=== PATIENT | female | born 1970 | race African-American/Black ===

== ENCOUNTER 2018-09-19 02:57 | Inpatient (IN) | payer SELFPAY ==
[~2018-09-19] VITALS: Ht 165.1 cm; Wt 93.9 kg
[2018-09-19] VITALS (10 sets, daily range): BP systolic 89–118; BP diastolic 48–76
[2018-09-19] MEDS ORDERED: METOCLOPRAMIDE HCL 10 MG/2 ML VIAL. IV ONE (03:30)
[2018-09-19] MEDS ORDERED: IV NORMAL SALINE 1000ML BAG 1,000 ML IV ONE (03:30)
[2018-09-19] MEDS ORDERED: KETOROLAC 15 MG/ML VIAL. IV ONE (03:30)
[2018-09-19 03:40] LABS: BASO # 0.1 x10^3/uL (0.0-0.2); BASO % 1 % (0-3); EOS # 0.1 x10^3/uL (0.0-0.7); EOS % 1 % (0-3); HEMATOCRIT 36.4 % (36.0-47.0); HEMOGLOBIN 11.9 g/dL (12.0-15.5); LYMPH # 0.9 x10^3/uL (1.0-4.8); LYMPH % 9 % (24-48); MEAN CORPUSCULAR HEMOGLOBIN 27 pg (25-35); MEAN CORPUSCULAR HGB CONC 33 g/dL (31-37); MEAN CORPUSCULAR VOLUME 82 fL (79-100); MONO # 0.6 x10^3/uL (0.0-1.1); MONO % 5 % (0-9); NEUT % 85 % (31-73); PLATELET COUNT 295 x10^3/uL (140-400); RED BLOOD COUNT 4.45 x10^6/uL (3.50-5.40); RED CELL DISTRIBUTION WIDTH 16.4 % (11.5-14.5); WHITE BLOOD COUNT 10.6 x10^3/uL (4.0-11.0)
[2018-09-19] MEDS ORDERED: fentaNYL PF VIAL 100 MCG/2 ML VIAL IV ONE ×3 (04:00→05:00)
--- NOTE | 2018-09-19 04:24 | PHYS DOC ---
Past Medical History Past Medical History: Asthma, Hypertension Past Surgical History: Hysterectomy Additional Past Surgical Histo: NECK/BACK FUSION Alcohol Use: None Drug Use: None Adult General Chief Complaint Chief Complaint: ABDOMINAL PAIN HPI HPI 48-year-old female presents with sudden right lower quadrant abdominal pain which awoke patient just prior to arrival. Denies known trauma. Reports some associated nausea. Denies vomiting or diarrhea. Denies fever or chills. Denies known sick contacts. Reports last ate food at 1800 yesterday. Reports drinking some water at 0300 this AM. Review of Systems Review of Systems Constitutional: Denies fever or chills [] Eyes: Denies change in visual acuity, redness, or eye pain [] HENT: Denies nasal congestion or sore throat [] Respiratory: Denies cough or shortness of breath [] Cardiovascular: Denies chest pain or palpitations GI: Denies abdominal pain, vomiting, or diarrhea; reports vomiting : Denies dysuria or hematuria [] Musculoskeletal: Denies back pain or joint pain [] Integument: Denies rash or skin lesions [] Neurologic: Denies headache, focal weakness or sensory changes [] Complete systems were reviewed and found to be within normal limits, except as documented in this note. Current Medications Current Medications Current Medications Medications (Trade) Dose Ordered Sig/Bree Start Time Stop Time Status Last Admin Dose Admin Fentanyl Citrate (Fentanyl 2ml Vial) 50 mcg 1X ONCE 09/19/18 05:00 09/19/18 05:01 Ketorolac Tromethamine (Toradol 15mg Vial) 15 mg 1X ONCE 09/19/18 03:30 09/19/18 03:31 DC 09/19/18 03:38 15 MG Metoclopramide HCl (Reglan Vial) 10 mg 1X ONCE 09/19/18 03:30 09/19/18 03:31 DC 09/19/18 03:36 10 MG Piperacillin Sod/ Tazobactam Sod 3.375 gm/Dextrose 50 ml @ 100 mls/hr 1X ONCE 09/19/18 05:00 09/19/18 05:29 Sodium Chloride 1,000 ml @ 1,000 mls/hr 1X ONCE 09/19/18 03:30 09/19/18 04:29 DC 09/19/18 03:38 1,000 MLS/HR Allergies Allergies Allergies Coded Allergies Type Severity Reaction Last Updated Verified No Known Drug Allergies 09/19/18 No Physical Exam Physical Exam Constitutional: Well developed, well nourished, uncomfortable, non-toxic appearance. [] HENT: Normocephalic, atraumatic, oropharynx moist Eyes: Conjunctiva normal, no discharge. [] Neck: Normal range of motion, no tenderness, supple, no meningeal signs[] Cardiovascular: Heart rate regular rhythm, no murmur [] Lungs & Thorax: Bilateral breath sounds clear to auscultation [] Abdomen: Soft, RLQ pain on palpation Skin: Warm, dry, no erythema, no rash. [] Back: No tenderness, no CVA tenderness. [] Extremities: No tenderness, ROM intact, no edema. [] Neurologic: Alert and oriented X 3, normal motor function, normal sensory function, no focal deficits noted. [] Psychologic: Affect normal, judgement normal, mood normal. [] Current Patient Data Vital Signs Vital Signs Date Time Temp Pulse Resp B/P (MAP) Pulse Ox O2 Delivery O2 Flow Rate FiO2 09/19/18 02:58 98.8 108 24 124/83 (97) 96 Room Air 98.8 Lab Values Laboratory Tests Test 09/19/18 03:33 White Blood Count 10.6 x10^3/uL (4.0-11.0) Red Blood Count 4.45 x10^6/uL (3.50-5.40) Hemoglobin 11.9 g/dL (12.0-15.5) L Hematocrit 36.4 % (36.0-47.0) Mean Corpuscular Volume 82 fL (79-100) Mean Corpuscular Hemoglobin 27 pg (25-35) Mean Corpuscular Hemoglobin Concent 33 g/dL (31-37) Red Cell Distribution Width 16.4 % (11.5-14.5) H Platelet Count 295 x10^3/uL (140-400) Neutrophils (%) (Auto) 85 % (31-73) H Lymphocytes (%) (Auto) 9 % (24-48) L Monocytes (%) (Auto) 5 % (0-9) Eosinophils (%) (Auto) 1 % (0-3) Basophils (%) (Auto) 1 % (0-3) Neutrophils # (Auto) 9.0 x10^3uL (1.8-7.7) H Lymphocytes # (Auto) 0.9 x10^3/uL (1.0-4.8) L Monocytes # (Auto) 0.6 x10^3/uL (0.0-1.1) Eosinophils # (Auto) 0.1 x10^3/uL (0.0-0.7) Basophils # (Auto) 0.1 x10^3/uL (0.0-0.2) Laboratory Tests 09/19/18 03:33 EKG EKG [] Radiology/Procedures Radiology/Procedures PROCEDURE: CT ABDOMEN PELVIS WO CONTRAST CT scan of the abdomen and pelvis without contrast 09/19/2018 CLINICAL HISTORY: Right lower quadrant abdominal pain. TECHNIQUE: Unenhanced, contiguous, 2 mm axial sections were obtained through abdomen and pelvis. One or more of the following individualized dose reduction techniques were utilized for this study: 1. Automated exposure control. 2. Adjustment of the mA and/or kV according to patient size. 3. Use of iterative reconstruction technique. FINDINGS: Images through the lung bases demonstrate minimal dependent subsegmental atelectasis bilaterally. The liver, spleen, pancreas, and adrenal glands are within normal limits. No renal or ureteral calculus is seen. There is no evidence of obstruction of either collecting system. The abdominal aorta tapers normally. The gallbladder is well-distended. No free fluid or free air is seen within the abdomen. There is no evidence of bowel obstruction. The appendix is well-visualized. Calcified appendicoliths are seen throughout the lumen of the appendix. The mid/distal appendix is mildly dilated measuring 1 cm in diameter. It has a slightly thickened wall. Faint increased density is seen within the adjacent fat. These findings are consistent with acute appendicitis. No abnormal fluid collection is seen suggest evidence of an abscess. Images through the pelvis demonstrate the urinary bladder distended with urine. Calcifications are seen within the pelvis consistent with phleboliths. No free fluid is seen. Fusion hardware is seen within the L4-5 and L5-S1 disc spaces. Minimal S-shaped curvature of the thoracolumbar spine is seen. IMPRESSION: Findings are seen consistent with acute appendicitis. Electronically signed by: Giuliano Ceja MD (09/19/2018 4:34 AM) [facility] Course & Med Decision Making Course & Med Decision Making Pertinent Labs and Imaging studies reviewed. (See chart for details) Patient presents with right lower quadrant abdominal pain with associated nausea upon waking early this morning. Pain/nausea addressed. IV fluid hydration given. Labs obtained and posted to chart. CT abdomen/pelvis with findings consistent for acute appendicitis. Discussed case with Dr. Ken ( general surgery), who is in agreement with consultation and requests empiric Zosyn for antibiotics. Zosyn administered. Patient requiring admission for further evaluation and treatment. Discussed with Dr. Velazquez (hospitalist) who is in agreement with admission. Discussed findings and plan with patient and family , who acknowledge understanding and agreement. Dragon Disclaimer Dragon Disclaimer This electronic medical record was generated, in whole or in part, using a voice recognition dictation system. Departure Departure Impression: Primary Impression: Acute appendicitis Disposition: ADMITTED INPATIENT (Med/Surg) Admitting Physician: Xie. Greenberg Condition: GUARDED Referrals: NO PCP (PCP) Critical Care Time Critical care time was 30 minutes which includes time at bedside, spent in discussion of patient's care with specialists and/or family members, with interpretation of laboratory and/or radiological studies and is exclusive of procedures. Problem Qualifiers Primary Impression: Acute appendicitis Acute appendicitis type: with localized peritonitis Appendicitis gangrene presence: unspecified whether gangrene present Appendicitis perforation presence: without perforation Appendicitis abscess presence: without abscess Qualified Codes: K35.30 - Acute appendicitis with localized peritonitis, without perforation or gangrene JENNIFER BAE DO Sep 19, 2018 04:24
--- NOTE | 2018-09-19 04:38 | RAD ---
CT scan of the abdomen and pelvis without contrast 09/19/2018 CLINICAL HISTORY: Right lower quadrant abdominal pain. TECHNIQUE: Unenhanced, contiguous, 2 mm axial sections were obtained through abdomen and pelvis. One or more of the following individualized dose reduction techniques were utilized for this study: 1. Automated exposure control. 2. Adjustment of the mA and/or kV according to patient size. 3. Use of iterative reconstruction technique. FINDINGS: Images through the lung bases demonstrate minimal dependent subsegmental atelectasis bilaterally. The liver, spleen, pancreas, and adrenal glands are within normal limits. No renal or ureteral calculus is seen. There is no evidence of obstruction of either collecting system. The abdominal aorta tapers normally. The gallbladder is well-distended. No free fluid or free air is seen within the abdomen. There is no evidence of bowel obstruction. The appendix is well-visualized. Calcified appendicoliths are seen throughout the lumen of the appendix. The mid/distal appendix is mildly dilated measuring 1 cm in diameter. It has a slightly thickened wall. Faint increased density is seen within the adjacent fat. These findings are consistent with acute appendicitis. No abnormal fluid collection is seen suggest evidence of an abscess. Images through the pelvis demonstrate the urinary bladder distended with urine. Calcifications are seen within the pelvis consistent with phleboliths. No free fluid is seen. Fusion hardware is seen within the L4-5 and L5-S1 disc spaces. Minimal S-shaped curvature of the thoracolumbar spine is seen. IMPRESSION: Findings are seen consistent with acute appendicitis. Electronically signed by: Giuliano Cjea MD (09/19/2018 4:34 AM) [facility]
[2018-09-19 04:51] LABS: CALCIUM 8.9 mg/dL (8.5-10.1); CREATININE 1.1 mg/dL (0.6-1.0); GFR 63.6; POTASSIUM 3.3 mmol/L (3.5-5.1)
[2018-09-19 04:57] LABS: ALBUMIN 3.4 g/dL (3.4-5.0); ALBUMIN/GLOBULIN RATIO 0.9 (1.0-1.7); MAGNESIUM 1.9 mg/dL (1.8-2.4); TOTAL BILIRUBIN 0.3 mg/dL (0.2-1.0); TOTAL PROTEIN 7.1 g/dL (6.4-8.2)
[2018-09-19] MEDS ORDERED: PIPERACILLIN/TAZOBACTAM 3.375 GM in IV DEXTROSE 5% 50 ML IV ONE (05:00)
[2018-09-19] MEDS ORDERED: ONDANSETRON PF 4 MG/2 ML VIAL. IV PRN ×4 (05:00→14:15)
[2018-09-19] MEDS: IV NORMAL SALINE 1000ML BAG 1,000 ML IV SCH ×3 (06:15→16:28)
[2018-09-19] MEDS: fentaNYL PF VIAL 100 MCG/2 ML VIAL IV PRN ×2 (07:17→11:35)
[2018-09-19] MEDS ORDERED: PIP/TAZO PER PHARMACY MC PRN (08:45)
[2018-09-19] MEDS ORDERED: ACETAMINOPHEN 500 MG TABLET PO PRN (08:45)
[2018-09-19] MEDS ORDERED: MORPHINE SULFATE 4 MG/ML VIAL. IV PRN (09:00)
[2018-09-19] MEDS ORDERED: IV RINGERS,LACTATED 1000ML 1,000 ML IV SCH (10:50)
[2018-09-19] MEDS ORDERED: LIDOCAINE 1% PF 2 ML VIAL. ID PRN (11:00)
[2018-09-19] MEDS ORDERED: PROCHLORPERAZINE 10 MG/2 ML VIAL. IV PRN (11:00)
[2018-09-19] MEDS ORDERED: fentaNYL PF VIAL 100 MCG/2 ML VIAL IV PRN ×2 (11:00)
[2018-09-19] MEDS ORDERED: HYDROmorphone 2 MG/ML VIAL IV PRN (11:00)
[2018-09-19] MEDS ORDERED: MORPHINE SULFATE 2 MG/ML VIAL. IV PRN (11:00)
[2018-09-19] MEDS: PIPERACILLIN/TAZOBACTAM 3.375 GM in IV DEXTROSE 5% 50 ML IV SCH ×3 (11:34→23:55)
[2018-09-19] MEDS ORDERED: PIPERACILLIN/TAZOBACTAM 3.375 GM in IV NORMAL SALINE 50ML 50 ML IV SCH (12:00)
--- NOTE | 2018-09-19 12:17 | PDOC1 ---
History and Physical Date of Admission Date of Admission DATE: 09/19/18 TIME: 12:13 Identification/Chief Complaint Chief Complaint right abd pain Source Source: Caregiver, Chart review, Patient History of Present Illness History of Present Illness Pt is out having a laparoscopic appendectomy for perforated appendicitis Most of the history obtained from the ER chart: 48-year-old female presents with sudden right lower quadrant abdominal pain which awoke patient just prior to arrival. Denies known trauma. Reports some associated nausea. Denies vomiting or diarrhea. Denies fever or chills. Denies known sick contacts. NO past medical hx Past Medical History Cardiovascular: No pertinent hx Pulmonary: No pertinent hx GI: No pertinent hx Heme/Onc: No pertinent hx Psych: No pertinent hx Rheumatologic: No pertinent hx Infectious disease: No pertinent hx ENT: No pertinent hx Renal/: No pertinent hx Endocrine: No pertinent hx Dermatology: No pertinent hx Past Surgical History Past Surgical History: No pertinent history Family History Family History: No Significant Social History Smoke: No ALCOHOL: none Drugs: None Current Problem List Problem List Problems Medical Problems: (1) Abdominal pain Status: Acute (2) Acute appendicitis Status: Acute Current Medications Current Medications Current Medications Ketorolac Tromethamine (Toradol 15mg Vial) 15 mg 1X ONCE IV Last administered on 09/19/18at 03:38; Start 09/19/18 at 03:30; Stop 09/19/18 at 03:31; Status DC Sodium Chloride 1,000 ml @ 1,000 mls/hr 1X ONCE IV Last administered on 09/19at 03:38; Start 09/19/18 at 03:30; Stop 09/19/18 at 04:29; Status DC Metoclopramide HCl (Reglan Vial) 10 mg 1X ONCE IV Last administered on at 03:36; Start 09/19/18 at 03:30; Stop 09/19/18 at 03:31; Status DC Fentanyl Citrate (Fentanyl 2ml Vial) 50 mcg 1X ONCE IV Last administered on at 03:49; Start 09/19/18 at 04:00; Stop 09/19/18 at 04:01; Status DC Fentanyl Citrate (Fentanyl 2ml Vial) 50 mcg 1X ONCE IV Last administered on at 04:52; Start 09/19/18 at 05:00; Stop 09/19/18 at 05:01; Status DC Fentanyl Citrate (Fentanyl 2ml Vial) 50 mcg 1X ONCE IV ; Start 09/19/18 at 05: 00; Stop 09/19/18 at 05:01; Status DC Piperacillin Sod/ Tazobactam Sod 3.375 gm/Dextrose 50 ml @ 100 mls/hr 1X ONCE IV Last administered on 09/19/18at 04:56; Start 09/19/18 at 05:00; Stop 09/19 at 05:29; Status DC Ondansetron HCl (Zofran) 4 mg PRN Q8HRS PRN IV NAUSEA/VOMITING 1st choice; Start 09/19/18 at 05:00; Stop 09/19/18 at 08:33; Status DC Fentanyl Citrate (Fentanyl 2ml Vial) 50 mcg PRN Q2HRS PRN IV SEVERE PAIN Last administered on 09/19/18at 11:35; Start 09/19/18 at 05:00; Stop 09/20/18 at 04 :59 Sodium Chloride 1,000 ml @ 100 mls/hr Q10H IV Last administered on 09/19/18at 06:15; Start 09/19/18 at 05:30; Stop 09/20/18 at 05:29 Ondansetron HCl (Zofran) 4 mg PRN Q6HRS PRN IV NAUSEA/VOMITING 1st choice; Start 09/19/18 at 08:45 Piperacillin Sod/ Tazobactam Sod (Zosyn Per Pharmacy) 1 each PRN DAILY PRN MC SEE COMMENTS; Start 09/19/18 at 08:45 Acetaminophen (Tylenol) 500 mg PRN Q6HRS PRN PO MILD PAIN / TEMP; Start at 08:45 Oxycodone/ Acetaminophen (Percocet 5/325) 1 tab PRN Q4HRS PRN PO MODERATE- SEVERE PAIN; Start 09/19/18 at 08:45 Piperacillin Sod/ Tazobactam Sod 3.375 gm/Sodium Chloride 50 ml @ 100 mls/hr Q6HRS IV ; Start 09/19/18 at 12:00; Stop 09/19/18 at 12:00; Status DC Morphine Sulfate (Morphine Sulfate) 4 mg PRN Q2HR PRN IV PAIN Last administered on 09/19/18at 09:19; Start 09/19/18 at 09:00 Piperacillin Sod/ Tazobactam Sod 3.375 gm/Dextrose 50 ml @ 100 mls/hr Q6HRS IV Last administered on 09/19/18at 11:34; Start 09/19/18 at 12:00 Ondansetron HCl (Zofran) 4 mg PRN Q6HRS PRN IV NAUSEA/VOMITING; Start at 11:00; Stop 09/20/18 at 10:59 Fentanyl Citrate (Fentanyl 2ml Vial) 25 mcg PRN Q5MIN PRN IV MILD PAIN; Start 09/19/18 at 11:00; Stop 09/20/18 at 10:59 Fentanyl Citrate (Fentanyl 2ml Vial) 50 mcg PRN Q5MIN PRN IV MODERATE TO SEVERE PAIN; Start 09/19/18 at 11:00; Stop 09/20/18 at 10:59 Morphine Sulfate (Morphine Sulfate) 1 mg PRN Q10MIN PRN IV SEVERE PAIN; Start 09/19/18 at 11:00; Stop 09/20/18 at 10:59 Ringer's Solution 1,000 ml @ 30 mls/hr Q24H IV ; Start 09/19/18 at 10:50; Stop 09/19/18 at 22:49 Lidocaine HCl (Xylocaine-Mpf 1% 2ml Vial) 2 ml 1X PRN PRN ID IV START; Start 09/19/18 at 11:00; Stop 09/20/18 at 10:59 Hydromorphone HCl (Dilaudid) 0.5 mg PRN Q10MIN PRN IV SEV PAIN, Second choice; Start 09/19/18 at 11:00; Stop 09/20/18 at 10:59 Prochlorperazine Edisylate (Compazine) 5 mg PACU PRN PRN IV NAUSEA, MRX1; Start 09/19/18 at 11:00; Stop 09/20/18 at 10:59 Lactobacillus Rhamnosus (Culturelle) 1 cap BID PO ; Start 09/19/18 at 21:00 Allergies Allergies: Coded Allergies: No Known Drug Allergies (Unverified , 09/19/18) ROS Review of System As per history of present illness Physical Exam Physical Exam Out having appendectomy Vitals Vitals Vital Signs Date Time Temp Pulse Resp B/P (MAP) Pulse Ox O2 Delivery O2 Flow Rate FiO2 09/19/18 11:35 92 Room Air 09/19/18 11:00 97.8 103 18 118/76 (90) 97.8 Labs Labs Laboratory Tests Test 09/19/18 03:33 09/19/18 04:30 White Blood Count 10.6 x10^3/uL (4.0-11.0) Red Blood Count 4.45 x10^6/uL (3.50-5.40) Hemoglobin 11.9 g/dL (12.0-15.5) Hematocrit 36.4 % (36.0-47.0) Mean Corpuscular Volume 82 fL (79-100) Mean Corpuscular Hemoglobin 27 pg (25-35) Mean Corpuscular Hemoglobin Concent 33 g/dL (31-37) Red Cell Distribution Width 16.4 % (11.5-14.5) Platelet Count 295 x10^3/uL (140-400) Neutrophils (%) (Auto) 85 % (31-73) Lymphocytes (%) (Auto) 9 % (24-48) Monocytes (%) (Auto) 5 % (0-9) Eosinophils (%) (Auto) 1 % (0-3) Basophils (%) (Auto) 1 % (0-3) Neutrophils # (Auto) 9.0 x10^3uL (1.8-7.7) Lymphocytes # (Auto) 0.9 x10^3/uL (1.0-4.8) Monocytes # (Auto) 0.6 x10^3/uL (0.0-1.1) Eosinophils # (Auto) 0.1 x10^3/uL (0.0-0.7) Basophils # (Auto) 0.1 x10^3/uL (0.0-0.2) Sodium Level 137 mmol/L (136-145) Potassium Level 3.3 mmol/L (3.5-5.1) Chloride Level 99 mmol/L (98-107) Carbon Dioxide Level 28 mmol/L (21-32) Anion Gap 10 (6-14) Blood Urea Nitrogen 11 mg/dL (7-20) Creatinine 1.1 mg/dL (0.6-1.0) Estimated GFR (Cockcroft-Gault) 63.6 BUN/Creatinine Ratio 10 (6-20) Glucose Level 177 mg/dL (70-99) Calcium Level 8.9 mg/dL (8.5-10.1) Magnesium Level 1.9 mg/dL (1.8-2.4) Total Bilirubin 0.3 mg/dL (0.2-1.0) Aspartate Amino Transf (AST/SGOT) 11 U/L (15-37) Alanine Aminotransferase (ALT/SGPT) 20 U/L (14-59) Alkaline Phosphatase 100 U/L (46-116) Total Protein 7.1 g/dL (6.4-8.2) Albumin 3.4 g/dL (3.4-5.0) Albumin/Globulin Ratio 0.9 (1.0-1.7) Lipase 70 U/L (73-393) Laboratory Tests Test 09/19/18 03:33 09/19/18 04:30 White Blood Count 10.6 x10^3/uL (4.0-11.0) Red Blood Count 4.45 x10^6/uL (3.50-5.40) Hemoglobin 11.9 g/dL (12.0-15.5) Hematocrit 36.4 % (36.0-47.0) Mean Corpuscular Volume 82 fL (79-100) Mean Corpuscular Hemoglobin 27 pg (25-35) Mean Corpuscular Hemoglobin Concent 33 g/dL (31-37) Red Cell Distribution Width 16.4 % (11.5-14.5) Platelet Count 295 x10^3/uL (140-400) Neutrophils (%) (Auto) 85 % (31-73) Lymphocytes (%) (Auto) 9 % (24-48) Monocytes (%) (Auto) 5 % (0-9) Eosinophils (%) (Auto) 1 % (0-3) Basophils (%) (Auto) 1 % (0-3) Neutrophils # (Auto) 9.0 x10^3uL (1.8-7.7) Lymphocytes # (Auto) 0.9 x10^3/uL (1.0-4.8) Monocytes # (Auto) 0.6 x10^3/uL (0.0-1.1) Eosinophils # (Auto) 0.1 x10^3/uL (0.0-0.7) Basophils # (Auto) 0.1 x10^3/uL (0.0-0.2) Sodium Level 137 mmol/L (136-145) Potassium Level 3.3 mmol/L (3.5-5.1) Chloride Level 99 mmol/L (98-107) Carbon Dioxide Level 28 mmol/L (21-32) Anion Gap 10 (6-14) Blood Urea Nitrogen 11 mg/dL (7-20) Creatinine 1.1 mg/dL (0.6-1.0) Estimated GFR (Cockcroft-Gault) 63.6 BUN/Creatinine Ratio 10 (6-20) Glucose Level 177 mg/dL (70-99) Calcium Level 8.9 mg/dL (8.5-10.1) Magnesium Level 1.9 mg/dL (1.8-2.4) Total Bilirubin 0.3 mg/dL (0.2-1.0) Aspartate Amino Transf (AST/SGOT) 11 U/L (15-37) Alanine Aminotransferase (ALT/SGPT) 20 U/L (14-59) Alkaline Phosphatase 100 U/L (46-116) Total Protein 7.1 g/dL (6.4-8.2) Albumin 3.4 g/dL (3.4-5.0) Albumin/Globulin Ratio 0.9 (1.0-1.7) Lipase 70 U/L (73-393) VTE Prophylaxis Ordered VTE Prophylaxis Devices: Yes VTE Pharmacological Prophylaxi: Yes Assessment/Plan Assessment/Plan Perforated appendicitis SIRS Plan: I have resume Zosyn per pharmacy Check postop labs Pain medicine We'll await from surgery VALE LOFTON MD Sep 19, 2018 12:17
[2018-09-19] MEDS ORDERED: BUPIVAC MPF-EPI 0.5%-1:200000 30 ML VIAL. ONE (12:23)
[2018-09-19] MEDS ORDERED: GLYCOPYRROLATE 1 MG/5 ML VIAL. ONE (12:47)
[2018-09-19] MEDS ORDERED: NEOSTIGMINE METHYLSULFATE 5 MG/5 ML SYRINGE. ONE (12:47)
[2018-09-19] MEDS ORDERED: fentaNYL PF VIAL 100 MCG/2 ML VIAL ONE (12:47)
[2018-09-19] MEDS ORDERED: ROCURONIUM 100 MG/10 ML VIAL. ONE (12:47)
[2018-09-19] MEDS ORDERED: ONDANSETRON PF 4 MG/2 ML VIAL. ONE (12:48)
[2018-09-19] MEDS ORDERED: DEXAMETHASONE SOD PHOS 20 MG/5 ML VIAL. ONE (12:48)
[2018-09-19] MEDS ORDERED: MIDAZOLAM HCL/PF 2 MG/2 ML VIAL. ONE (12:48)
[2018-09-19] MEDS ORDERED: KETOROLAC 30 MG/ML INJ FOR OR. INJ ONE (12:48)
[2018-09-19] MEDS ORDERED: PROPOFOL 20 ML IV ONE (12:48)
[2018-09-19] MEDS ORDERED: LIDOCAINE 2% PF Vial for OR 5 ML VIAL. ONE (12:48)
--- NOTE | 2018-09-19 12:48 | PDOC2 ---
CONSULT Date of Consult Date of Consult DATE: 09/19/18 TIME: 12:39 Reason for Consult Reason for Consult: Appendicitis Referring Physician Referring Physician: Delio Identification/Chief Complaint Chief Complaint RLQ abd pain Source Source: Chart review, Patient History of Present Illness Reason for Visit: 48 yo F with c/o abd pain, localizing RLQ, since 0000. Mild nausea at presentation. Normal bowel fxn. No previous episode. Past Medical History Cardiovascular: HTN Pulmonary: No pertinent hx GI: No pertinent hx Heme/Onc: No pertinent hx Psych: Depression Musculoskeletal: low back pain Rheumatologic: No pertinent hx Infectious disease: No pertinent hx ENT: No pertinent hx Renal/: No pertinent hx Endocrine: No pertinent hx Dermatology: No pertinent hx Past Surgical History Past Surgical History: Hysterectomy, Other (back surgery) Family History Family History: No Significant Social History No ALCOHOL: none Drugs: None Current Problem List Problem List Problems Medical Problems: (1) Abdominal pain Status: Acute (2) Acute appendicitis Status: Acute Current Medications Current Medications Current Medications Ketorolac Tromethamine (Toradol 15mg Vial) 15 mg 1X ONCE IV Last administered on 09/19/18at 03:38; Start 09/19/18 at 03:30; Stop 09/19/18 at 03:31; Status DC Sodium Chloride 1,000 ml @ 1,000 mls/hr 1X ONCE IV Last administered on 09/19at 03:38; Start 09/19/18 at 03:30; Stop 09/19/18 at 04:29; Status DC Metoclopramide HCl (Reglan Vial) 10 mg 1X ONCE IV Last administered on at 03:36; Start 09/19/18 at 03:30; Stop 09/19/18 at 03:31; Status DC Fentanyl Citrate (Fentanyl 2ml Vial) 50 mcg 1X ONCE IV Last administered on at 03:49; Start 09/19/18 at 04:00; Stop 09/19/18 at 04:01; Status DC Fentanyl Citrate (Fentanyl 2ml Vial) 50 mcg 1X ONCE IV Last administered on at 04:52; Start 09/19/18 at 05:00; Stop 09/19/18 at 05:01; Status DC Fentanyl Citrate (Fentanyl 2ml Vial) 50 mcg 1X ONCE IV ; Start 09/19/18 at 05: 00; Stop 09/19/18 at 05:01; Status DC Piperacillin Sod/ Tazobactam Sod 3.375 gm/Dextrose 50 ml @ 100 mls/hr 1X ONCE IV Last administered on 09/19/18at 04:56; Start 09/19/18 at 05:00; Stop 09/19 at 05:29; Status DC Ondansetron HCl (Zofran) 4 mg PRN Q8HRS PRN IV NAUSEA/VOMITING 1st choice; Start 09/19/18 at 05:00; Stop 09/19/18 at 08:33; Status DC Fentanyl Citrate (Fentanyl 2ml Vial) 50 mcg PRN Q2HRS PRN IV SEVERE PAIN Last administered on 09/19/18at 11:35; Start 09/19/18 at 05:00; Stop 09/20/18 at 04 :59 Sodium Chloride 1,000 ml @ 100 mls/hr Q10H IV Last administered on 09/19/18at 06:15; Start 09/19/18 at 05:30; Stop 09/20/18 at 05:29 Ondansetron HCl (Zofran) 4 mg PRN Q6HRS PRN IV NAUSEA/VOMITING 1st choice; Start 09/19/18 at 08:45 Piperacillin Sod/ Tazobactam Sod (Zosyn Per Pharmacy) 1 each PRN DAILY PRN MC SEE COMMENTS; Start 09/19/18 at 08:45 Acetaminophen (Tylenol) 500 mg PRN Q6HRS PRN PO MILD PAIN / TEMP; Start at 08:45 Oxycodone/ Acetaminophen (Percocet 5/325) 1 tab PRN Q4HRS PRN PO MODERATE- SEVERE PAIN; Start 09/19/18 at 08:45 Piperacillin Sod/ Tazobactam Sod 3.375 gm/Sodium Chloride 50 ml @ 100 mls/hr Q6HRS IV ; Start 09/19/18 at 12:00; Stop 09/19/18 at 12:00; Status DC Morphine Sulfate (Morphine Sulfate) 4 mg PRN Q2HR PRN IV PAIN Last administered on 09/19/18at 09:19; Start 09/19/18 at 09:00 Piperacillin Sod/ Tazobactam Sod 3.375 gm/Dextrose 50 ml @ 100 mls/hr Q6HRS IV Last administered on 09/19/18at 11:34; Start 09/19/18 at 12:00 Ondansetron HCl (Zofran) 4 mg PRN Q6HRS PRN IV NAUSEA/VOMITING; Start at 11:00; Stop 09/20/18 at 10:59 Fentanyl Citrate (Fentanyl 2ml Vial) 25 mcg PRN Q5MIN PRN IV MILD PAIN; Start 09/19/18 at 11:00; Stop 09/20/18 at 10:59 Fentanyl Citrate (Fentanyl 2ml Vial) 50 mcg PRN Q5MIN PRN IV MODERATE TO SEVERE PAIN; Start 09/19/18 at 11:00; Stop 09/20/18 at 10:59 Morphine Sulfate (Morphine Sulfate) 1 mg PRN Q10MIN PRN IV SEVERE PAIN; Start 09/19/18 at 11:00; Stop 09/20/18 at 10:59 Ringer's Solution 1,000 ml @ 30 mls/hr Q24H IV ; Start 09/19/18 at 10:50; Stop 09/19/18 at 22:49 Lidocaine HCl (Xylocaine-Mpf 1% 2ml Vial) 2 ml 1X PRN PRN ID IV START; Start 09/19/18 at 11:00; Stop 09/20/18 at 10:59 Hydromorphone HCl (Dilaudid) 0.5 mg PRN Q10MIN PRN IV SEV PAIN, Second choice; Start 09/19/18 at 11:00; Stop 09/20/18 at 10:59 Prochlorperazine Edisylate (Compazine) 5 mg PACU PRN PRN IV NAUSEA, MRX1; Start 09/19/18 at 11:00; Stop 09/20/18 at 10:59 Lactobacillus Rhamnosus (Culturelle) 1 cap BID PO ; Start 09/19/18 at 21:00 Bupivacaine HCl/ Epinephrine Bitart (Sensorcain-Mpf Epi 0.5%-1:[id number]) 30 ml STK -MED ONCE .ROUTE ; Start 09/19/18 at 12:23; Stop 09/19/18 at 12:24; Status DC Allergies Allergies: Coded Allergies: No Known Drug Allergies (Unverified , 09/19/18) ROS Gastrointestinal: Yes Nausea, Yes Abdominal Pain Physical Exam General: Alert, Oriented X3, Cooperative, moderate distress HEENT: Atraumatic Lungs: Normal air movement Abdomen: Soft, Other (TTP RLQ) Extremities: No clubbing, No cyanosis Skin: No rashes, No breakdown Neuro: Normal speech, Sensation intact Psych/Mental Status: Mental status NL, Mood NL Vitals VITALS Vital Signs Date Time Temp Pulse Resp B/P (MAP) Pulse Ox O2 Delivery O2 Flow Rate FiO2 09/19/18 12:08 97.8 108 15 116/70 100 Room Air 97.8 Labs Labs Laboratory Tests Test 09/19/18 03:33 09/19/18 04:30 White Blood Count 10.6 x10^3/uL (4.0-11.0) Red Blood Count 4.45 x10^6/uL (3.50-5.40) Hemoglobin 11.9 g/dL (12.0-15.5) Hematocrit 36.4 % (36.0-47.0) Mean Corpuscular Volume 82 fL (79-100) Mean Corpuscular Hemoglobin 27 pg (25-35) Mean Corpuscular Hemoglobin Concent 33 g/dL (31-37) Red Cell Distribution Width 16.4 % (11.5-14.5) Platelet Count 295 x10^3/uL (140-400) Neutrophils (%) (Auto) 85 % (31-73) Lymphocytes (%) (Auto) 9 % (24-48) Monocytes (%) (Auto) 5 % (0-9) Eosinophils (%) (Auto) 1 % (0-3) Basophils (%) (Auto) 1 % (0-3) Neutrophils # (Auto) 9.0 x10^3uL (1.8-7.7) Lymphocytes # (Auto) 0.9 x10^3/uL (1.0-4.8) Monocytes # (Auto) 0.6 x10^3/uL (0.0-1.1) Eosinophils # (Auto) 0.1 x10^3/uL (0.0-0.7) Basophils # (Auto) 0.1 x10^3/uL (0.0-0.2) Sodium Level 137 mmol/L (136-145) Potassium Level 3.3 mmol/L (3.5-5.1) Chloride Level 99 mmol/L (98-107) Carbon Dioxide Level 28 mmol/L (21-32) Anion Gap 10 (6-14) Blood Urea Nitrogen 11 mg/dL (7-20) Creatinine 1.1 mg/dL (0.6-1.0) Estimated GFR (Cockcroft-Gault) 63.6 BUN/Creatinine Ratio 10 (6-20) Glucose Level 177 mg/dL (70-99) Calcium Level 8.9 mg/dL (8.5-10.1) Magnesium Level 1.9 mg/dL (1.8-2.4) Total Bilirubin 0.3 mg/dL (0.2-1.0) Aspartate Amino Transf (AST/SGOT) 11 U/L (15-37) Alanine Aminotransferase (ALT/SGPT) 20 U/L (14-59) Alkaline Phosphatase 100 U/L (46-116) Total Protein 7.1 g/dL (6.4-8.2) Albumin 3.4 g/dL (3.4-5.0) Albumin/Globulin Ratio 0.9 (1.0-1.7) Lipase 70 U/L (73-393) Laboratory Tests Test 09/19/18 03:33 09/19/18 04:30 White Blood Count 10.6 x10^3/uL (4.0-11.0) Red Blood Count 4.45 x10^6/uL (3.50-5.40) Hemoglobin 11.9 g/dL (12.0-15.5) Hematocrit 36.4 % (36.0-47.0) Mean Corpuscular Volume 82 fL (79-100) Mean Corpuscular Hemoglobin 27 pg (25-35) Mean Corpuscular Hemoglobin Concent 33 g/dL (31-37) Red Cell Distribution Width 16.4 % (11.5-14.5) Platelet Count 295 x10^3/uL (140-400) Neutrophils (%) (Auto) 85 % (31-73) Lymphocytes (%) (Auto) 9 % (24-48) Monocytes (%) (Auto) 5 % (0-9) Eosinophils (%) (Auto) 1 % (0-3) Basophils (%) (Auto) 1 % (0-3) Neutrophils # (Auto) 9.0 x10^3uL (1.8-7.7) Lymphocytes # (Auto) 0.9 x10^3/uL (1.0-4.8) Monocytes # (Auto) 0.6 x10^3/uL (0.0-1.1) Eosinophils # (Auto) 0.1 x10^3/uL (0.0-0.7) Basophils # (Auto) 0.1 x10^3/uL (0.0-0.2) Sodium Level 137 mmol/L (136-145) Potassium Level 3.3 mmol/L (3.5-5.1) Chloride Level 99 mmol/L (98-107) Carbon Dioxide Level 28 mmol/L (21-32) Anion Gap 10 (6-14) Blood Urea Nitrogen 11 mg/dL (7-20) Creatinine 1.1 mg/dL (0.6-1.0) Estimated GFR (Cockcroft-Gault) 63.6 BUN/Creatinine Ratio 10 (6-20) Glucose Level 177 mg/dL (70-99) Calcium Level 8.9 mg/dL (8.5-10.1) Magnesium Level 1.9 mg/dL (1.8-2.4) Total Bilirubin 0.3 mg/dL (0.2-1.0) Aspartate Amino Transf (AST/SGOT) 11 U/L (15-37) Alanine Aminotransferase (ALT/SGPT) 20 U/L (14-59) Alkaline Phosphatase 100 U/L (46-116) Total Protein 7.1 g/dL (6.4-8.2) Albumin 3.4 g/dL (3.4-5.0) Albumin/Globulin Ratio 0.9 (1.0-1.7) Lipase 70 U/L (73-393) Images Images CT c/w appendicitis with fecoliths Assessment/Plan Assessment/Plan Appendicitis-IV abx started. TO OR for laparoscopic versus open appendectomy. R/R/B/A d/w pt. Risks, including, but not limited to: bleeding, infection, damage to surrounding structures, risk of anesthesia, risk of open. She appears to understand, her questions are answered and she elects to proceed. Thanks for consult! DOLORES PADILLA MD Sep 19, 2018 12:48
[2018-09-19] MEDS ORDERED: VASOPRESSIN 20 UNIT/ML VIAL. ONE (13:33)
--- NOTE | 2018-09-19 14:11 | PDOC4 ---
OPERATIVE NOTE Date: Date: Sep 19, 2018 Pre-Op Diagnosis: Appendicitis Post-Op Diagnosis: same Procedure Performed: Laparoscopic appendectomy Surgeon: Emory Padilla Anesthesia Type: GETA plus local Blood Loss: minimal Specimans Obtained: appendix Findings: Gangrenous appendix, mild associated turbid fluid Complications: none Operative Note: After obtaining informed consent, patient was taken to OR, induced under GETA and prepped in the usual fashion. 5 mm port placed LLQ and suprapubic, 12 port placed umbilical, all under laparoscopic guidance. Abdominal cavity was explored and otherwise unremarkable. Uterus surgically absent. Ovaries appear normal. Appendix was identified off cecum and noted to be gangrenous. Appendix amputated at based with BOOGIE, mesoappendix taken with vascular load. Appendix placed in bag, delivered and sent to pathology. Additional hemostasis obtained on staple lines with clips. Copious irrigation. No evidence of bleeding or pathology. Ports removed without bleeding. Fascia repaired with 0 vicryl. Skin repaired with 4 0 monocryl. Dressing placed. Patient tolerated procedure well and sent to PACU in stable condition. All counts correct. Wound class 4, dirty. DOLORES PADILLA MD Sep 19, 2018 14:11
[2018-09-19] MEDS ORDERED: 0.9 % SODIUM CHLORIDE 10 ML DISP.SYRIN. IV PRN (14:15)
[2018-09-19] MEDS: IV RINGERS,LACTATED 1000ML 1,000 ML IV SCH (14:30)
[2018-09-19] MEDS ORDERED: PHENYLEPHRINE in 0.9% NACL PF 1 MG/10 ML SYRINGE. IV ONE (15:00)
[2018-09-19] MEDS: ALBUTEROL SULFATE 2.5 MG/3 ML NEBU. NEB PRN (19:20)
[2018-09-19] MEDS: HYDROcodone/APAP 5/325MG 1 TAB TABLET PO PRN (19:58)
[2018-09-19] MEDS: DOCUSATE SODIUM 100 MG CAPSULE. PO SCH (21:03)
[2018-09-19] MEDS: LACTOBACILLUS RHAMNOSUS GG 1 CAPSULE. PO SCH (21:03)
[2018-09-20] VITALS (7 sets, daily range): BP systolic 94–105; BP diastolic 51–72
[2018-09-20] MEDS: IV RINGERS,LACTATED 1000ML 1,000 ML IV SCH ×2 (00:30→10:30)
[2018-09-20] MEDS: HYDROcodone/APAP 5/325MG 1 TAB TABLET PO PRN (04:35)
[2018-09-20] MEDS: PIPERACILLIN/TAZOBACTAM 3.375 GM in IV DEXTROSE 5% 50 ML IV SCH ×3 (05:48→16:37)
[2018-09-20 06:27] LABS: BASO % 0 % (0-3); EOS % 0 % (0-3); HEMATOCRIT 30.7 % (36.0-47.0); HEMOGLOBIN 9.9 g/dL (12.0-15.5); LYMPH # 0.8 x10^3/uL (1.0-4.8); LYMPH % 8 % (24-48); MEAN CORPUSCULAR HEMOGLOBIN 27 pg (25-35); MEAN CORPUSCULAR HGB CONC 32 g/dL (31-37); MEAN CORPUSCULAR VOLUME 83 fL (79-100); MONO # 0.5 x10^3/uL (0.0-1.1); MONO % 5 % (0-9); NEUT % 87 % (31-73); PLATELET COUNT 232 x10^3/uL (140-400); RED CELL DISTRIBUTION WIDTH 16.2 % (11.5-14.5); WHITE BLOOD COUNT 10.4 x10^3/uL (4.0-11.0)
[2018-09-20 06:28] LABS: CALCIUM 8.6 mg/dL (8.5-10.1); POTASSIUM 3.5 mmol/L (3.5-5.1)
[2018-09-20] MEDS: LACTOBACILLUS RHAMNOSUS GG 1 CAPSULE. PO SCH ×2 (08:40→20:09)
[2018-09-20] MEDS: DOCUSATE SODIUM 100 MG CAPSULE. PO SCH ×2 (08:40→20:08)
[2018-09-20] MEDS: KETOROLAC 15 MG/ML VIAL. IV PRN ×2 (08:40→16:36)
[2018-09-20] MEDS: oxyCODONE/APAP 5/325 1 TAB TABLET PO PRN ×4 (08:43→21:35)
--- NOTE | 2018-09-20 09:16 | PDOC ---
PROGRESS NOTES History of Present Illness History of Present Illness laparoscopic appendectomy for perforated appendicitis OBESITY Vitals Vitals Vital Signs Date Time Temp Pulse Resp B/P (MAP) Pulse Ox O2 Delivery O2 Flow Rate FiO2 09/20/18 08:43 100 Room Air 09/20/18 08:18 98.1 79 16 104/72 (83) 98.1 09/19/18 15:25 15 Physical Exam General: Alert, Oriented X3, Cooperative, moderate distress Heart: Regular rate, Normal S1, Normal S2 Lungs: Clear Abdomen: Soft, Other (TTP RLQ) Extremities: No clubbing, No cyanosis Skin: No rashes, No breakdown Labs LABS CT scan of the abdomen and pelvis without contrast 09/19/2018 CLINICAL HISTORY: Right lower quadrant abdominal pain. TECHNIQUE: Unenhanced, contiguous, 2 mm axial sections were obtained through abdomen and pelvis. One or more of the following individualized dose reduction techniques were utilized for this study: 1. Automated exposure control. 2. Adjustment of the mA and/or kV according to patient size. 3. Use of iterative reconstruction technique. FINDINGS: Images through the lung bases demonstrate minimal dependent subsegmental atelectasis bilaterally. The liver, spleen, pancreas, and adrenal glands are within normal limits. No renal or ureteral calculus is seen. There is no evidence of obstruction of either collecting system. The abdominal aorta tapers normally. The gallbladder is well-distended. No free fluid or free air is seen within the abdomen. There is no evidence of bowel obstruction. The appendix is well-visualized. Calcified appendicoliths are seen throughout the lumen of the appendix. The mid/distal appendix is mildly dilated measuring 1 cm in diameter. It has a slightly thickened wall. Faint increased density is seen within the adjacent fat. These findings are consistent with acute appendicitis. No abnormal fluid collection is seen suggest evidence of an abscess. Images through the pelvis demonstrate the urinary bladder distended with urine. Calcifications are seen within the pelvis consistent with phleboliths. No free fluid is seen. Fusion hardware is seen within the L4-5 and L5-S1 disc spaces. Minimal S-shaped curvature of the thoracolumbar spine is seen. IMPRESSION: Findings are seen consistent with acute appendicitis. Electronically signed by: Giuliano Ceja MD (09/19/2018 4:34 AM) [facility] Laboratory Tests Test 09/20/18 04:55 White Blood Count 10.4 x10^3/uL (4.0-11.0) Red Blood Count 3.70 x10^6/uL (3.50-5.40) Hemoglobin 9.9 g/dL (12.0-15.5) Hematocrit 30.7 % (36.0-47.0) Mean Corpuscular Volume 83 fL (79-100) Mean Corpuscular Hemoglobin 27 pg (25-35) Mean Corpuscular Hemoglobin Concent 32 g/dL (31-37) Red Cell Distribution Width 16.2 % (11.5-14.5) Platelet Count 232 x10^3/uL (140-400) Neutrophils (%) (Auto) 87 % (31-73) Lymphocytes (%) (Auto) 8 % (24-48) Monocytes (%) (Auto) 5 % (0-9) Eosinophils (%) (Auto) 0 % (0-3) Basophils (%) (Auto) 0 % (0-3) Neutrophils # (Auto) 9.0 x10^3uL (1.8-7.7) Lymphocytes # (Auto) 0.8 x10^3/uL (1.0-4.8) Monocytes # (Auto) 0.5 x10^3/uL (0.0-1.1) Eosinophils # (Auto) 0.0 x10^3/uL (0.0-0.7) Basophils # (Auto) 0.0 x10^3/uL (0.0-0.2) Sodium Level 143 mmol/L (136-145) Potassium Level 3.5 mmol/L (3.5-5.1) Chloride Level 106 mmol/L (98-107) Carbon Dioxide Level 28 mmol/L (21-32) Anion Gap 9 (6-14) Blood Urea Nitrogen 11 mg/dL (7-20) Creatinine 1.0 mg/dL (0.6-1.0) Estimated GFR (Cockcroft-Gault) 71.0 Glucose Level 119 mg/dL (70-99) Calcium Level 8.6 mg/dL (8.5-10.1) Assessment and Plan Assessmemt and Plan Problems Medical Problems: (1) Abdominal pain Status: Acute (2) Acute appendicitis Status: Acute Comment Review of Relevant I have reviewed the following items morteza (where applicable) has been applied. Labs Laboratory Tests Test 09/19/18 03:33 09/19/18 04:30 09/20/18 04:55 White Blood Count 10.6 x10^3/uL (4.0-11.0) 10.4 x10^3/uL (4.0-11.0) Red Blood Count 4.45 x10^6/uL (3.50-5.40) 3.70 x10^6/uL (3.50-5.40) Hemoglobin 11.9 g/dL (12.0-15.5) 9.9 g/dL (12.0-15.5) Hematocrit 36.4 % (36.0-47.0) 30.7 % (36.0-47.0) Mean Corpuscular Volume 82 fL (79-100) 83 fL (79-100) Mean Corpuscular Hemoglobin 27 pg (25-35) 27 pg (25-35) Mean Corpuscular Hemoglobin Concent 33 g/dL (31-37) 32 g/dL (31-37) Red Cell Distribution Width 16.4 % (11.5-14.5) 16.2 % (11.5-14.5) Platelet Count 295 x10^3/uL (140-400) 232 x10^3/uL (140-400) Neutrophils (%) (Auto) 85 % (31-73) 87 % (31-73) Lymphocytes (%) (Auto) 9 % (24-48) 8 % (24-48) Monocytes (%) (Auto) 5 % (0-9) 5 % (0-9) Eosinophils (%) (Auto) 1 % (0-3) 0 % (0-3) Basophils (%) (Auto) 1 % (0-3) 0 % (0-3) Neutrophils # (Auto) 9.0 x10^3uL (1.8-7.7) 9.0 x10^3uL (1.8-7.7) Lymphocytes # (Auto) 0.9 x10^3/uL (1.0-4.8) 0.8 x10^3/uL (1.0-4.8) Monocytes # (Auto) 0.6 x10^3/uL (0.0-1.1) 0.5 x10^3/uL (0.0-1.1) Eosinophils # (Auto) 0.1 x10^3/uL (0.0-0.7) 0.0 x10^3/uL (0.0-0.7) Basophils # (Auto) 0.1 x10^3/uL (0.0-0.2) 0.0 x10^3/uL (0.0-0.2) Sodium Level 137 mmol/L (136-145) 143 mmol/L (136-145) Potassium Level 3.3 mmol/L (3.5-5.1) 3.5 mmol/L (3.5-5.1) Chloride Level 99 mmol/L (98-107) 106 mmol/L (98-107) Carbon Dioxide Level 28 mmol/L (21-32) 28 mmol/L (21-32) Anion Gap 10 (6-14) 9 (6-14) Blood Urea Nitrogen 11 mg/dL (7-20) 11 mg/dL (7-20) Creatinine 1.1 mg/dL (0.6-1.0) 1.0 mg/dL (0.6-1.0) Estimated GFR (Cockcroft-Gault) 63.6 71.0 BUN/Creatinine Ratio 10 (6-20) Glucose Level 177 mg/dL (70-99) 119 mg/dL (70-99) Calcium Level 8.9 mg/dL (8.5-10.1) 8.6 mg/dL (8.5-10.1) Magnesium Level 1.9 mg/dL (1.8-2.4) Total Bilirubin 0.3 mg/dL (0.2-1.0) Aspartate Amino Transf (AST/SGOT) 11 U/L (15-37) Alanine Aminotransferase (ALT/SGPT) 20 U/L (14-59) Alkaline Phosphatase 100 U/L (46-116) Total Protein 7.1 g/dL (6.4-8.2) Albumin 3.4 g/dL (3.4-5.0) Albumin/Globulin Ratio 0.9 (1.0-1.7) Lipase 70 U/L (73-393) Laboratory Tests Test 09/20/18 04:55 White Blood Count 10.4 x10^3/uL (4.0-11.0) Red Blood Count 3.70 x10^6/uL (3.50-5.40) Hemoglobin 9.9 g/dL (12.0-15.5) Hematocrit 30.7 % (36.0-47.0) Mean Corpuscular Volume 83 fL (79-100) Mean Corpuscular Hemoglobin 27 pg (25-35) Mean Corpuscular Hemoglobin Concent 32 g/dL (31-37) Red Cell Distribution Width 16.2 % (11.5-14.5) Platelet Count 232 x10^3/uL (140-400) Neutrophils (%) (Auto) 87 % (31-73) Lymphocytes (%) (Auto) 8 % (24-48) Monocytes (%) (Auto) 5 % (0-9) Eosinophils (%) (Auto) 0 % (0-3) Basophils (%) (Auto) 0 % (0-3) Neutrophils # (Auto) 9.0 x10^3uL (1.8-7.7) Lymphocytes # (Auto) 0.8 x10^3/uL (1.0-4.8) Monocytes # (Auto) 0.5 x10^3/uL (0.0-1.1) Eosinophils # (Auto) 0.0 x10^3/uL (0.0-0.7) Basophils # (Auto) 0.0 x10^3/uL (0.0-0.2) Sodium Level 143 mmol/L (136-145) Potassium Level 3.5 mmol/L (3.5-5.1) Chloride Level 106 mmol/L (98-107) Carbon Dioxide Level 28 mmol/L (21-32) Anion Gap 9 (6-14) Blood Urea Nitrogen 11 mg/dL (7-20) Creatinine 1.0 mg/dL (0.6-1.0) Estimated GFR (Cockcroft-Gault) 71.0 Glucose Level 119 mg/dL (70-99) Calcium Level 8.6 mg/dL (8.5-10.1) Medications Current Medications Ketorolac Tromethamine (Toradol 15mg Vial) 15 mg 1X ONCE IV Last administered on 09/19/18at 03:38; Start 09/19/18 at 03:30; Stop 09/19/18 at 03:31; Status DC Sodium Chloride 1,000 ml @ 1,000 mls/hr 1X ONCE IV Last administered on 09/19at 03:38; Start 09/19/18 at 03:30; Stop 09/19/18 at 04:29; Status DC Metoclopramide HCl (Reglan Vial) 10 mg 1X ONCE IV Last administered on at 03:36; Start 09/19/18 at 03:30; Stop 09/19/18 at 03:31; Status DC Fentanyl Citrate (Fentanyl 2ml Vial) 50 mcg 1X ONCE IV Last administered on at 03:49; Start 09/19/18 at 04:00; Stop 09/19/18 at 04:01; Status DC Fentanyl Citrate (Fentanyl 2ml Vial) 50 mcg 1X ONCE IV Last administered on at 04:52; Start 09/19/18 at 05:00; Stop 09/19/18 at 05:01; Status DC Fentanyl Citrate (Fentanyl 2ml Vial) 50 mcg 1X ONCE IV ; Start 09/19/18 at 05: 00; Stop 09/19/18 at 05:01; Status DC Piperacillin Sod/ Tazobactam Sod 3.375 gm/Dextrose 50 ml @ 100 mls/hr 1X ONCE IV Last administered on 09/19/18at 04:56; Start 09/19/18 at 05:00; Stop 09/19 at 05:29; Status DC Ondansetron HCl (Zofran) 4 mg PRN Q8HRS PRN IV NAUSEA/VOMITING 1st choice; Start 09/19/18 at 05:00; Stop 09/19/18 at 08:33; Status DC Fentanyl Citrate (Fentanyl 2ml Vial) 50 mcg PRN Q2HRS PRN IV SEVERE PAIN Last administered on 09/19/18at 11:35; Start 09/19/18 at 05:00; Stop 09/20/18 at 04 :59; Status DC Sodium Chloride 1,000 ml @ 100 mls/hr Q10H IV Last administered on 09/19/18at 16:28; Start 09/19/18 at 05:30; Stop 09/20/18 at 05:29; Status DC Ondansetron HCl (Zofran) 4 mg PRN Q6HRS PRN IV NAUSEA/VOMITING 1st choice; Start 09/19/18 at 08:45 Piperacillin Sod/ Tazobactam Sod (Zosyn Per Pharmacy) 1 each PRN DAILY PRN MC SEE COMMENTS; Start 09/19/18 at 08:45 Acetaminophen (Tylenol) 500 mg PRN Q6HRS PRN PO MILD PAIN / TEMP; Start at 08:45 Oxycodone/ Acetaminophen (Percocet 5/325) 1 tab PRN Q4HRS PRN PO SEVERE PAIN Last administered on 09/20/18at 08:43; Start 09/19/18 at 08:45 Piperacillin Sod/ Tazobactam Sod 3.375 gm/Sodium Chloride 50 ml @ 100 mls/hr Q6HRS IV ; Start 09/19/18 at 12:00; Stop 09/19/18 at 12:00; Status DC Morphine Sulfate (Morphine Sulfate) 4 mg PRN Q2HR PRN IV MODERATE-SEVERE PAIN Last administered on 09/19/18at 09:19; Start 09/19/18 at 09:00 Piperacillin Sod/ Tazobactam Sod 3.375 gm/Dextrose 50 ml @ 100 mls/hr Q6HRS IV Last administered on 09/20/18at 05:48; Start 09/19/18 at 12:00 Ondansetron HCl (Zofran) 4 mg PRN Q6HRS PRN IV NAUSEA/VOMITING; Start at 11:00; Stop 09/20/18 at 10:59 Fentanyl Citrate (Fentanyl 2ml Vial) 25 mcg PRN Q5MIN PRN IV MILD PAIN; Start 09/19/18 at 11:00; Stop 09/20/18 at 10:59 Fentanyl Citrate (Fentanyl 2ml Vial) 50 mcg PRN Q5MIN PRN IV MODERATE TO SEVERE PAIN Last administered on 09/19/18at 14:24; Start 09/19/18 at 11:00; Stop 09/20/18 at 10:59 Morphine Sulfate (Morphine Sulfate) 1 mg PRN Q10MIN PRN IV SEVERE PAIN; Start 09/19/18 at 11:00; Stop 09/20/18 at 10:59 Ringer's Solution 1,000 ml @ 30 mls/hr Q24H IV ; Start 09/19/18 at 10:50; Stop 09/19/18 at 22:49; Status DC Lidocaine HCl (Xylocaine-Mpf 1% 2ml Vial) 2 ml 1X PRN PRN ID IV START; Start 09/19/18 at 11:00; Stop 09/20/18 at 10:59 Hydromorphone HCl (Dilaudid) 0.5 mg PRN Q10MIN PRN IV SEV PAIN, Second choice; Start 09/19/18 at 11:00; Stop 09/20/18 at 10:59 Prochlorperazine Edisylate (Compazine) 5 mg PACU PRN PRN IV NAUSEA, MRX1; Start 09/19/18 at 11:00; Stop 09/20/18 at 10:59 Lactobacillus Rhamnosus (Culturelle) 1 cap BID PO Last administered on at 08:40; Start 09/19/18 at 21:00 Bupivacaine HCl/ Epinephrine Bitart (Sensorcain-Mpf Epi 0.5%-1:[id number]) 30 ml STK -MED ONCE .ROUTE Last administered on 09/19/18at 13:41; Start 09/19/18 at 12: 23; Stop 09/19/18 at 12:24; Status DC Glycopyrrolate (Robinul) 1 mg STK-MED ONCE .ROUTE ; Start 09/19/18 at 12:47; Stop 09/19/18 at 12:48; Status DC Rocuronium [place] (Zemuron) 100 mg STK-MED ONCE .ROUTE ; Start 09/19/18 at 12: 47; Stop 09/19/18 at 12:48; Status DC Fentanyl Citrate (Fentanyl 2ml Vial) 100 mcg STK-MED ONCE .ROUTE ; Start at 12:47; Stop 09/19/18 at 12:48; Status DC Neostigmine Methylsulfate (Neostigmine Methylsulfate) 5 mg STK-MED ONCE .ROUTE ; Start 09/19/18 at 12:47; Stop 09/19/18 at 12:48; Status DC Midazolam HCl (Versed) 2 mg STK-MED ONCE .ROUTE ; Start 09/19/18 at 12:48; Stop 09/19/18 at 12:49; Status DC Propofol 20 ml @ As Directed STK-MED ONCE IV ; Start 09/19/18 at 12:48; Stop 09/19/18 at 12:49; Status DC Lidocaine HCl (Lidocaine Pf 2% Vial) 5 ml STK-MED ONCE .ROUTE ; Start 09/19/18 at 12:48; Stop 09/19/18 at 12:49; Status DC Dexamethasone Sodium Phosphate (Decadron) 20 mg STK-MED ONCE .ROUTE ; Start at 12:48; Stop 09/19/18 at 12:49; Status DC Ondansetron HCl (Zofran) 4 mg STK-MED ONCE .ROUTE ; Start 09/19/18 at 12:48; Stop 09/19/18 at 12:49; Status DC Ketorolac Tromethamine (Toradol For Or Only) 30 mg STK-MED ONCE INJ ; Start at 12:48; Stop 09/19/18 at 12:49; Status DC Vasopressin (Vasostrict) 20 unit STK-MED ONCE .ROUTE ; Start 09/19/18 at 13:33 ; Stop 09/19/18 at 13:34; Status DC Sodium Chloride (Normal Saline Flush) 3 ml QSHIFT PRN IV AFTER MEDS AND BLOOD DRAWS; Start 09/19/18 at 14:15 Ringer's Solution 1,000 ml @ 100 mls/hr Q10H IV Last administered on at 14:30; Start 09/19/18 at 14:30 Acetaminophen/ Hydrocodone Bitart (Lortab 5/325) 1 tab PRN Q4HRS PRN PO MODERATE PAIN Last administered on 09/20/18at 04:35; Start 09/19/18 at 14:15 Ketorolac Tromethamine (Toradol 15mg Vial) 15 mg PRN Q6HRS PRN IV MILD PAIN Last administered on 09/20/18at 08:40; Start 09/19/18 at 14:15; Stop 09/24/18 at 14:14 Docusate Sodium (Colace) 100 mg BID PO Last administered on 09/20/18at 08:40; Start 09/19/18 at 21:00 Ondansetron HCl (Zofran) 4 mg PRN Q6HRS PRN IV NAUESA, 1ST CHOICE; Start 09/19 at 14:15; Status UNV Phenylephrine HCl (PHENYLEPHRINE in 0.9% NACL PF) 0.1 mg 1X ONCE IV Last administered on 09/19/18at 15:16; Start 09/19/18 at 15:00; Stop 09/19/18 at 15 :01; Status DC Albuterol Sulfate (Ventolin Neb Soln) 2.5 mg PRN Q6HRS PRN NEB SHORTNESS OF BREATH Last administered on 09/19/18at 19:20; Start 09/19/18 at 18:45 Vitals/I & O Vital Sign - Last 24 Hours 09/19/18 09/19/18 09/19/18 09/19/18 09:19 10:24 10:25 11:00 Temp 97.8 97.8 Pulse 103 Resp 18 B/P (MAP) 118/76 (90) Pulse Ox 92 99 O2 Delivery Room Air Room Air Room Air Room Air 09/19/18 09/19/18 09/19/18 09/19/18 11:35 12:08 14:01 14:01 Temp 97.8 97.3 97.8 97.3 Pulse 108 108 Resp 15 20 B/P (MAP) 116/70 100/50 Pulse Ox 92 100 100 O2 Delivery Room Air Room Air Mask Room Air O2 Flow Rate 15 15 09/19/18 09/19/18 09/19/18 09/19/18 14:18 14:24 14:38 14:48 Temp 97.3 97.3 97.3 97.3 97.3 97.3 Pulse 96 94 98 Resp 20 20 20 13 B/P (MAP) 90/41 82/38 79/21 Pulse Ox 100 100 97 100 O2 Delivery Simple Mask Room Air Room Air Room Air Simple Mask O2 Flow Rate 15 09/19/18 09/19/18 09/19/18 09/19/18 14:58 15:03 15:18 15:25 Temp 97.3 97.3 97.3 97.3 97.3 97.3 97.3 97.3 Pulse 94 95 88 92 Resp 13 16 10 14 B/P (MAP) 82/25 83/27 96/53 92/49 Pulse Ox 100 100 98 97 O2 Delivery Room Air Room Air Room Air Room Air O2 Flow Rate 15 15 09/19/18 09/19/18 09/19/18 09/19/18 15:30 16:45 17:00 17:15 Temp 98.4 98.4 Pulse 92 88 69 93 B/P (MAP) 100/55 89/48 (62) 93/55 (68) 92/53 (66) Pulse Ox 98 100 99 100 O2 Delivery Room Air 09/19/18 09/19/18 09/19/18 09/19/18 17:30 19:00 19:26 19:58 Temp 98.1 98.1 Pulse 89 101 Resp 18 16 B/P (MAP) 99/55 (70) 96/55 (69) Pulse Ox 99 99 99 O2 Delivery Room Air Room Air Room Air 09/19/18 09/19/18 09/19/18 09/20/18 20:20 21:00 23:00 03:00 Temp 98.6 97.9 98.6 97.9 Pulse 97 76 Resp 18 18 B/P (MAP) 102/57 (72) 94/58 (70) Pulse Ox 94 94 O2 Delivery Room Air Room Air Room Air 09/20/18 09/20/18 09/20/18 09/20/18 04:35 05:48 07:00 08:18 Temp 98.1 98.1 98.1 98.1 Pulse 79 79 Resp 16 16 16 16 B/P (MAP) 104/72 (83) 104/72 (83) Pulse Ox 100 100 O2 Delivery Room Air Room Air Room Air Room Air 09/20/18 08:43 Pulse Ox 100 O2 Delivery Room Air Intake and Output 09/19/18 09/19/18 09/20/18 15:00 23:00 07:00 Intake Total 1650 ml 400 ml 2760 ml Output Total 5 ml Balance 1645 ml 400 ml 2760 ml PADMINI ROCHA MD Sep 20, 2018 09:16
--- NOTE | 2018-09-20 11:25 | PDOC ---
SURGICAL PROGRESS NOTE Subjective tolerating diet ambulating incisional pain Vital Signs Vital Signs Date Time Temp Pulse Resp B/P (MAP) Pulse Ox O2 Delivery O2 Flow Rate FiO2 09/20/18 11:13 Room Air 09/20/18 08:43 100 09/20/18 08:18 98.1 79 16 104/72 (83) 98.1 09/19/18 15:25 15 I&O Intake and Output 09/20/18 07:00 Intake Total 4810 ml Output Total 5 ml Balance 4805 ml Intake Oral 710 ml IV Total 4100 ml Output Estimated Blood Loss 5 ml # Voids 3 General: Alert, Oriented X3, Cooperative, No acute distress Abdomen: Soft, Other (lap dressings dry, incisional TTP) Labs Laboratory Tests Test 09/19/18 03:33 09/19/18 04:30 09/20/18 04:55 White Blood Count 10.6 x10^3/uL (4.0-11.0) 10.4 x10^3/uL (4.0-11.0) Red Blood Count 4.45 x10^6/uL (3.50-5.40) 3.70 x10^6/uL (3.50-5.40) Hemoglobin 11.9 g/dL (12.0-15.5) 9.9 g/dL (12.0-15.5) Hematocrit 36.4 % (36.0-47.0) 30.7 % (36.0-47.0) Mean Corpuscular Volume 82 fL (79-100) 83 fL (79-100) Mean Corpuscular Hemoglobin 27 pg (25-35) 27 pg (25-35) Mean Corpuscular Hemoglobin Concent 33 g/dL (31-37) 32 g/dL (31-37) Red Cell Distribution Width 16.4 % (11.5-14.5) 16.2 % (11.5-14.5) Platelet Count 295 x10^3/uL (140-400) 232 x10^3/uL (140-400) Neutrophils (%) (Auto) 85 % (31-73) 87 % (31-73) Lymphocytes (%) (Auto) 9 % (24-48) 8 % (24-48) Monocytes (%) (Auto) 5 % (0-9) 5 % (0-9) Eosinophils (%) (Auto) 1 % (0-3) 0 % (0-3) Basophils (%) (Auto) 1 % (0-3) 0 % (0-3) Neutrophils # (Auto) 9.0 x10^3uL (1.8-7.7) 9.0 x10^3uL (1.8-7.7) Lymphocytes # (Auto) 0.9 x10^3/uL (1.0-4.8) 0.8 x10^3/uL (1.0-4.8) Monocytes # (Auto) 0.6 x10^3/uL (0.0-1.1) 0.5 x10^3/uL (0.0-1.1) Eosinophils # (Auto) 0.1 x10^3/uL (0.0-0.7) 0.0 x10^3/uL (0.0-0.7) Basophils # (Auto) 0.1 x10^3/uL (0.0-0.2) 0.0 x10^3/uL (0.0-0.2) Sodium Level 137 mmol/L (136-145) 143 mmol/L (136-145) Potassium Level 3.3 mmol/L (3.5-5.1) 3.5 mmol/L (3.5-5.1) Chloride Level 99 mmol/L (98-107) 106 mmol/L (98-107) Carbon Dioxide Level 28 mmol/L (21-32) 28 mmol/L (21-32) Anion Gap 10 (6-14) 9 (6-14) Blood Urea Nitrogen 11 mg/dL (7-20) 11 mg/dL (7-20) Creatinine 1.1 mg/dL (0.6-1.0) 1.0 mg/dL (0.6-1.0) Estimated GFR (Cockcroft-Gault) 63.6 71.0 BUN/Creatinine Ratio 10 (6-20) Glucose Level 177 mg/dL (70-99) 119 mg/dL (70-99) Calcium Level 8.9 mg/dL (8.5-10.1) 8.6 mg/dL (8.5-10.1) Magnesium Level 1.9 mg/dL (1.8-2.4) Total Bilirubin 0.3 mg/dL (0.2-1.0) Aspartate Amino Transf (AST/SGOT) 11 U/L (15-37) Alanine Aminotransferase (ALT/SGPT) 20 U/L (14-59) Alkaline Phosphatase 100 U/L (46-116) Total Protein 7.1 g/dL (6.4-8.2) Albumin 3.4 g/dL (3.4-5.0) Albumin/Globulin Ratio 0.9 (1.0-1.7) Lipase 70 U/L (73-393) Laboratory Tests Test 09/20/18 04:55 White Blood Count 10.4 x10^3/uL (4.0-11.0) Red Blood Count 3.70 x10^6/uL (3.50-5.40) Hemoglobin 9.9 g/dL (12.0-15.5) Hematocrit 30.7 % (36.0-47.0) Mean Corpuscular Volume 83 fL (79-100) Mean Corpuscular Hemoglobin 27 pg (25-35) Mean Corpuscular Hemoglobin Concent 32 g/dL (31-37) Red Cell Distribution Width 16.2 % (11.5-14.5) Platelet Count 232 x10^3/uL (140-400) Neutrophils (%) (Auto) 87 % (31-73) Lymphocytes (%) (Auto) 8 % (24-48) Monocytes (%) (Auto) 5 % (0-9) Eosinophils (%) (Auto) 0 % (0-3) Basophils (%) (Auto) 0 % (0-3) Neutrophils # (Auto) 9.0 x10^3uL (1.8-7.7) Lymphocytes # (Auto) 0.8 x10^3/uL (1.0-4.8) Monocytes # (Auto) 0.5 x10^3/uL (0.0-1.1) Eosinophils # (Auto) 0.0 x10^3/uL (0.0-0.7) Basophils # (Auto) 0.0 x10^3/uL (0.0-0.2) Sodium Level 143 mmol/L (136-145) Potassium Level 3.5 mmol/L (3.5-5.1) Chloride Level 106 mmol/L (98-107) Carbon Dioxide Level 28 mmol/L (21-32) Anion Gap 9 (6-14) Blood Urea Nitrogen 11 mg/dL (7-20) Creatinine 1.0 mg/dL (0.6-1.0) Estimated GFR (Cockcroft-Gault) 71.0 Glucose Level 119 mg/dL (70-99) Calcium Level 8.6 mg/dL (8.5-10.1) Problem List Problems Medical Problems: (1) Abdominal pain Status: Acute (2) Acute appendicitis Status: Acute Assessment/Plan s/p appy, gangrenous continue abx possible DC in AM if continues to do well CESAR SALCIDO [employer] Sep 20, 2018 11:25
[2018-09-20 11:44] LABS: % LYMPHS 6 % (24-48); % SEGS 94 % (35-66); ANISOCYTOSIS SLIGHT; PLT ESTIMATE ADEQUATE (ADEQUATE)
[2018-09-20] MEDS: ALBUTEROL SULFATE 2.5 MG/3 ML NEBU. NEB PRN (21:13)
[2018-09-21] MEDS: PIPERACILLIN/TAZOBACTAM 3.375 GM in IV DEXTROSE 5% 50 ML IV SCH ×3 (00:13→11:52)
[2018-09-21 03:01] VITALS: BP 96/60
[2018-09-21 05:14] LABS: BASO % 0 % (0-3); EOS # 0.1 x10^3/uL (0.0-0.7); EOS % 2 % (0-3); HEMATOCRIT 32.4 % (36.0-47.0); HEMOGLOBIN 10.7 g/dL (12.0-15.5); LYMPH % 35 % (24-48); MEAN CORPUSCULAR HEMOGLOBIN 27 pg (25-35); MEAN CORPUSCULAR HGB CONC 33 g/dL (31-37); MEAN CORPUSCULAR VOLUME 83 fL (79-100); MONO # 0.4 x10^3/uL (0.0-1.1); MONO % 8 % (0-9); NEUT # 3.2 x10^3uL (1.8-7.7); NEUT % 55 % (31-73); PLATELET COUNT 236 x10^3/uL (140-400); RED BLOOD COUNT 3.92 x10^6/uL (3.50-5.40); RED CELL DISTRIBUTION WIDTH 16.4 % (11.5-14.5); WHITE BLOOD COUNT 5.8 x10^3/uL (4.0-11.0)
[2018-09-21 05:41] LABS: ALBUMIN 2.9 g/dL (3.4-5.0); ALBUMIN/GLOBULIN RATIO 0.8 (1.0-1.7); CALCIUM 8.5 mg/dL (8.5-10.1); CREATININE 1.1 mg/dL (0.6-1.0); GFR 63.6; POTASSIUM 3.2 mmol/L (3.5-5.1); TOTAL BILIRUBIN 0.2 mg/dL (0.2-1.0); TOTAL PROTEIN 6.7 g/dL (6.4-8.2)
[2018-09-21] MEDS: oxyCODONE/APAP 5/325 1 TAB TABLET PO PRN ×2 (05:42→11:51)
[2018-09-21 07:00] VITALS: BP 115/60
[2018-09-21] MEDS: DOCUSATE SODIUM 100 MG CAPSULE. PO SCH (07:49)
[2018-09-21] MEDS: LACTOBACILLUS RHAMNOSUS GG 1 CAPSULE. PO SCH (07:49)
[2018-09-21] MEDS: KETOROLAC 15 MG/ML VIAL. IV PRN (07:49)
--- NOTE | 2018-09-21 10:22 | PDOC ---
PROGRESS NOTES History of Present Illness History of Present Illness laparoscopic appendectomy for perforated appendicitis OBESITY HYPOKALEMIA TOSHIA DIET WELL, LESS PAIN KCL 40 MEQ PO X 1 NOW Vitals Vitals Vital Signs Date Time Temp Pulse Resp B/P (MAP) Pulse Ox O2 Delivery O2 Flow Rate FiO2 09/21/18 08:05 Room Air 09/21/18 07:00 98.2 54 18 115/60 (78) 97 98.2 Physical Exam General: Alert, Oriented X3, Cooperative, No acute distress Heart: Regular rate, Normal S1, Normal S2 Lungs: Clear Abdomen: Soft, No tenderness, Other (lap dressings dry, incisional TTP) Extremities: No clubbing, No cyanosis, No edema Skin: No rashes, No breakdown, No significant lesion Labs LABS Laboratory Tests Test 09/21/18 04:35 White Blood Count 5.8 x10^3/uL (4.0-11.0) Red Blood Count 3.92 x10^6/uL (3.50-5.40) Hemoglobin 10.7 g/dL (12.0-15.5) Hematocrit 32.4 % (36.0-47.0) Mean Corpuscular Volume 83 fL (79-100) Mean Corpuscular Hemoglobin 27 pg (25-35) Mean Corpuscular Hemoglobin Concent 33 g/dL (31-37) Red Cell Distribution Width 16.4 % (11.5-14.5) Platelet Count 236 x10^3/uL (140-400) Neutrophils (%) (Auto) 55 % (31-73) Lymphocytes (%) (Auto) 35 % (24-48) Monocytes (%) (Auto) 8 % (0-9) Eosinophils (%) (Auto) 2 % (0-3) Basophils (%) (Auto) 0 % (0-3) Neutrophils # (Auto) 3.2 x10^3uL (1.8-7.7) Lymphocytes # (Auto) 2.0 x10^3/uL (1.0-4.8) Monocytes # (Auto) 0.4 x10^3/uL (0.0-1.1) Eosinophils # (Auto) 0.1 x10^3/uL (0.0-0.7) Basophils # (Auto) 0.0 x10^3/uL (0.0-0.2) Sodium Level 141 mmol/L (136-145) Potassium Level 3.2 mmol/L (3.5-5.1) Chloride Level 103 mmol/L (98-107) Carbon Dioxide Level 27 mmol/L (21-32) Anion Gap 11 (6-14) Blood Urea Nitrogen 13 mg/dL (7-20) Creatinine 1.1 mg/dL (0.6-1.0) Estimated GFR (Cockcroft-Gault) 63.6 BUN/Creatinine Ratio 12 (6-20) Glucose Level 98 mg/dL (70-99) Calcium Level 8.5 mg/dL (8.5-10.1) Total Bilirubin 0.2 mg/dL (0.2-1.0) Aspartate Amino Transf (AST/SGOT) 13 U/L (15-37) Alanine Aminotransferase (ALT/SGPT) 20 U/L (14-59) Alkaline Phosphatase 78 U/L (46-116) Total Protein 6.7 g/dL (6.4-8.2) Albumin 2.9 g/dL (3.4-5.0) Albumin/Globulin Ratio 0.8 (1.0-1.7) Assessment and Plan Assessmemt and Plan Problems Medical Problems: (1) Abdominal pain Status: Acute (2) Acute appendicitis Status: Acute Comment Review of Relevant I have reviewed the following items morteza (where applicable) has been applied. Labs Laboratory Tests Test 09/20/18 04:55 09/21/18 04:35 White Blood Count 10.4 x10^3/uL (4.0-11.0) 5.8 x10^3/uL (4.0-11.0) Red Blood Count 3.70 x10^6/uL (3.50-5.40) 3.92 x10^6/uL (3.50-5.40) Hemoglobin 9.9 g/dL (12.0-15.5) 10.7 g/dL (12.0-15.5) Hematocrit 30.7 % (36.0-47.0) 32.4 % (36.0-47.0) Mean Corpuscular Volume 83 fL (79-100) 83 fL (79-100) Mean Corpuscular Hemoglobin 27 pg (25-35) 27 pg (25-35) Mean Corpuscular Hemoglobin Concent 32 g/dL (31-37) 33 g/dL (31-37) Red Cell Distribution Width 16.2 % (11.5-14.5) 16.4 % (11.5-14.5) Platelet Count 232 x10^3/uL (140-400) 236 x10^3/uL (140-400) Neutrophils (%) (Auto) 87 % (31-73) 55 % (31-73) Lymphocytes (%) (Auto) 8 % (24-48) 35 % (24-48) Monocytes (%) (Auto) 5 % (0-9) 8 % (0-9) Eosinophils (%) (Auto) 0 % (0-3) 2 % (0-3) Basophils (%) (Auto) 0 % (0-3) 0 % (0-3) Neutrophils # (Auto) 9.0 x10^3uL (1.8-7.7) 3.2 x10^3uL (1.8-7.7) Lymphocytes # (Auto) 0.8 x10^3/uL (1.0-4.8) 2.0 x10^3/uL (1.0-4.8) Monocytes # (Auto) 0.5 x10^3/uL (0.0-1.1) 0.4 x10^3/uL (0.0-1.1) Eosinophils # (Auto) 0.0 x10^3/uL (0.0-0.7) 0.1 x10^3/uL (0.0-0.7) Basophils # (Auto) 0.0 x10^3/uL (0.0-0.2) 0.0 x10^3/uL (0.0-0.2) Segmented Neutrophils % 94 % (35-66) Lymphocytes % 6 % (24-48) Platelet Estimate Adequate (ADEQUATE) Anisocytosis Slight Sodium Level 143 mmol/L (136-145) 141 mmol/L (136-145) Potassium Level 3.5 mmol/L (3.5-5.1) 3.2 mmol/L (3.5-5.1) Chloride Level 106 mmol/L (98-107) 103 mmol/L (98-107) Carbon Dioxide Level 28 mmol/L (21-32) 27 mmol/L (21-32) Anion Gap 9 (6-14) 11 (6-14) Blood Urea Nitrogen 11 mg/dL (7-20) 13 mg/dL (7-20) Creatinine 1.0 mg/dL (0.6-1.0) 1.1 mg/dL (0.6-1.0) Estimated GFR (Cockcroft-Gault) 71.0 63.6 Glucose Level 119 mg/dL (70-99) 98 mg/dL (70-99) Calcium Level 8.6 mg/dL (8.5-10.1) 8.5 mg/dL (8.5-10.1) BUN/Creatinine Ratio 12 (6-20) Total Bilirubin 0.2 mg/dL (0.2-1.0) Aspartate Amino Transf (AST/SGOT) 13 U/L (15-37) Alanine Aminotransferase (ALT/SGPT) 20 U/L (14-59) Alkaline Phosphatase 78 U/L (46-116) Total Protein 6.7 g/dL (6.4-8.2) Albumin 2.9 g/dL (3.4-5.0) Albumin/Globulin Ratio 0.8 (1.0-1.7) Laboratory Tests Test 09/21/18 04:35 White Blood Count 5.8 x10^3/uL (4.0-11.0) Red Blood Count 3.92 x10^6/uL (3.50-5.40) Hemoglobin 10.7 g/dL (12.0-15.5) Hematocrit 32.4 % (36.0-47.0) Mean Corpuscular Volume 83 fL (79-100) Mean Corpuscular Hemoglobin 27 pg (25-35) Mean Corpuscular Hemoglobin Concent 33 g/dL (31-37) Red Cell Distribution Width 16.4 % (11.5-14.5) Platelet Count 236 x10^3/uL (140-400) Neutrophils (%) (Auto) 55 % (31-73) Lymphocytes (%) (Auto) 35 % (24-48) Monocytes (%) (Auto) 8 % (0-9) Eosinophils (%) (Auto) 2 % (0-3) Basophils (%) (Auto) 0 % (0-3) Neutrophils # (Auto) 3.2 x10^3uL (1.8-7.7) Lymphocytes # (Auto) 2.0 x10^3/uL (1.0-4.8) Monocytes # (Auto) 0.4 x10^3/uL (0.0-1.1) Eosinophils # (Auto) 0.1 x10^3/uL (0.0-0.7) Basophils # (Auto) 0.0 x10^3/uL (0.0-0.2) Sodium Level 141 mmol/L (136-145) Potassium Level 3.2 mmol/L (3.5-5.1) Chloride Level 103 mmol/L (98-107) Carbon Dioxide Level 27 mmol/L (21-32) Anion Gap 11 (6-14) Blood Urea Nitrogen 13 mg/dL (7-20) Creatinine 1.1 mg/dL (0.6-1.0) Estimated GFR (Cockcroft-Gault) 63.6 BUN/Creatinine Ratio 12 (6-20) Glucose Level 98 mg/dL (70-99) Calcium Level 8.5 mg/dL (8.5-10.1) Total Bilirubin 0.2 mg/dL (0.2-1.0) Aspartate Amino Transf (AST/SGOT) 13 U/L (15-37) Alanine Aminotransferase (ALT/SGPT) 20 U/L (14-59) Alkaline Phosphatase 78 U/L (46-116) Total Protein 6.7 g/dL (6.4-8.2) Albumin 2.9 g/dL (3.4-5.0) Albumin/Globulin Ratio 0.8 (1.0-1.7) Medications Current Medications Ketorolac Tromethamine (Toradol 15mg Vial) 15 mg 1X ONCE IV Last administered on 09/19/18 03:38; Start 09/19/18 at 03:30; Stop 09/19/18 at 03:31; Status DC Sodium Chloride 1,000 ml @ 1,000 mls/hr 1X ONCE IV Last administered on 09/19at 03:38; Start 09/19/18 at 03:30; Stop 09/19/18 at 04:29; Status DC Metoclopramide HCl (Reglan Vial) 10 mg 1X ONCE IV Last administered on at 03:36; Start 09/19/18 at 03:30; Stop 09/19/18 at 03:31; Status DC Fentanyl Citrate (Fentanyl 2ml Vial) 50 mcg 1X ONCE IV Last administered on at 03:49; Start 09/19/18 at 04:00; Stop 09/19/18 at 04:01; Status DC Fentanyl Citrate (Fentanyl 2ml Vial) 50 mcg 1X ONCE IV Last administered on at 04:52; Start 09/19/18 at 05:00; Stop 09/19/18 at 05:01; Status DC Fentanyl Citrate (Fentanyl 2ml Vial) 50 mcg 1X ONCE IV ; Start 09/19/18 at 05: 00; Stop 09/19/18 at 05:01; Status DC Piperacillin Sod/ Tazobactam Sod 3.375 gm/Dextrose 50 ml @ 100 mls/hr 1X ONCE IV Last administered on 09/19/18at 04:56; Start 09/19/18 at 05:00; Stop 09/19 at 05:29; Status DC Ondansetron HCl (Zofran) 4 mg PRN Q8HRS PRN IV NAUSEA/VOMITING 1st choice; Start 09/19/18 at 05:00; Stop 09/19/18 at 08:33; Status DC Fentanyl Citrate (Fentanyl 2ml Vial) 50 mcg PRN Q2HRS PRN IV SEVERE PAIN Last administered on 09/19/18at 11:35; Start 09/19/18 at 05:00; Stop 09/20/18 at 04 :59; Status DC Sodium Chloride 1,000 ml @ 100 mls/hr Q10H IV Last administered on 09/19/18at 16:28; Start 09/19/18 at 05:30; Stop 09/20/18 at 05:29; Status DC Ondansetron HCl (Zofran) 4 mg PRN Q6HRS PRN IV NAUSEA/VOMITING 1st choice; Start 09/19/18 at 08:45 Piperacillin Sod/ Tazobactam Sod (Zosyn Per Pharmacy) 1 each PRN DAILY PRN [facility] SEE COMMENTS; Start 09/19/18 at 08:45 Acetaminophen (Tylenol) 500 mg PRN Q6HRS PRN PO MILD PAIN / TEMP; Start at 08:45 Oxycodone/ Acetaminophen (Percocet 5/325) 1 tab PRN Q4HRS PRN PO SEVERE PAIN Last administered on 09/21/18at 05:42; Start 09/19/18 at 08:45 Piperacillin Sod/ Tazobactam Sod 3.375 gm/Sodium Chloride 50 ml @ 100 mls/hr Q6HRS IV ; Start 09/19/18 at 12:00; Stop 09/19/18 at 12:00; Status DC Morphine Sulfate (Morphine Sulfate) 4 mg PRN Q2HR PRN IV MODERATE-SEVERE PAIN Last administered on 09/19/18at 09:19; Start 09/19/18 at 09:00 Piperacillin Sod/ Tazobactam Sod 3.375 gm/Dextrose 50 ml @ 100 mls/hr Q6HRS IV Last administered on 09/21/18at 05:34; Start 09/19/18 at 12:00 Ondansetron HCl (Zofran) 4 mg PRN Q6HRS PRN IV NAUSEA/VOMITING; Start at 11:00; Stop 09/20/18 at 10:59; Status DC Fentanyl Citrate (Fentanyl 2ml Vial) 25 mcg PRN Q5MIN PRN IV MILD PAIN; Start 09/19/18 at 11:00; Stop 09/20/18 at 10:59; Status DC Fentanyl Citrate (Fentanyl 2ml Vial) 50 mcg PRN Q5MIN PRN IV MODERATE TO SEVERE PAIN Last administered on 09/19/18at 14:24; Start 09/19/18 at 11:00; Stop 09/20/18 at 10:59; Status DC Morphine Sulfate (Morphine Sulfate) 1 mg PRN Q10MIN PRN IV SEVERE PAIN; Start 09/19/18 at 11:00; Stop 09/20/18 at 10:59; Status DC Ringer's Solution 1,000 ml @ 30 mls/hr Q24H IV ; Start 09/19/18 at 10:50; Stop 09/19/18 at 22:49; Status DC Lidocaine HCl (Xylocaine-Mpf 1% 2ml Vial) 2 ml 1X PRN PRN ID IV START; Start 09/19/18 at 11:00; Stop 09/20/18 at 10:59; Status DC Hydromorphone HCl (Dilaudid) 0.5 mg PRN Q10MIN PRN IV SEV PAIN, Second choice; Start 09/19/18 at 11:00; Stop 09/20/18 at 10:59; Status DC Prochlorperazine Edisylate (Compazine) 5 mg PACU PRN PRN IV NAUSEA, MRX1; Start 09/19/18 at 11:00; Stop 09/20/18 at 10:59; Status DC Lactobacillus Rhamnosus (Culturelle) 1 cap BID PO Last administered on at 07:49; Start 09/19/18 at 21:00 Bupivacaine HCl/ Epinephrine Bitart (Sensorcain-Mpf Epi 0.5%-1:248764) 30 ml STK -MED ONCE .ROUTE Last administered on 09/19/18at 13:41; Start 09/19/18 at 12: 23; Stop 09/19/18 at 12:24; Status DC Glycopyrrolate (Robinul) 1 mg STK-MED ONCE .ROUTE ; Start 09/19/18 at 12:47; Stop 09/19/18 at 12:48; Status DC Rocuronium [place] (Zemuron) 100 mg STK-MED ONCE .ROUTE ; Start 09/19/18 at 12: 47; Stop 09/19/18 at 12:48; Status DC Fentanyl Citrate (Fentanyl 2ml Vial) 100 mcg STK-MED ONCE .ROUTE ; Start at 12:47; Stop 09/19/18 at 12:48; Status DC Neostigmine Methylsulfate (Neostigmine Methylsulfate) 5 mg STK-MED ONCE .ROUTE ; Start 09/19/18 at 12:47; Stop 09/19/18 at 12:48; Status DC Midazolam HCl (Versed) 2 mg STK-MED ONCE .ROUTE ; Start 09/19/18 at 12:48; Stop 09/19/18 at 12:49; Status DC Propofol 20 ml @ As Directed STK-MED ONCE IV ; Start 09/19/18 at 12:48; Stop 09/19/18 at 12:49; Status DC Lidocaine HCl (Lidocaine Pf 2% Vial) 5 ml STK-MED ONCE .ROUTE ; Start 09/19/18 at 12:48; Stop 09/19/18 at 12:49; Status DC Dexamethasone Sodium Phosphate (Decadron) 20 mg STK-MED ONCE .ROUTE ; Start at 12:48; Stop 09/19/18 at 12:49; Status DC Ondansetron HCl (Zofran) 4 mg STK-MED ONCE .ROUTE ; Start 09/19/18 at 12:48; Stop 09/19/18 at 12:49; Status DC Ketorolac Tromethamine (Toradol For Or Only) 30 mg STK-MED ONCE INJ ; Start at 12:48; Stop 09/19/18 at 12:49; Status DC Vasopressin (Vasostrict) 20 unit STK-MED ONCE .ROUTE ; Start 09/19/18 at 13:33 ; Stop 09/19/18 at 13:34; Status DC Sodium Chloride (Normal Saline Flush) 3 ml QSHIFT PRN IV AFTER MEDS AND BLOOD DRAWS; Start 09/19/18 at 14:15 Ringer's Solution 1,000 ml @ 100 mls/hr Q10H IV Last administered on at 14:30; Start 09/19/18 at 14:30; Stop 09/21/18 at 04:52; Status DC Acetaminophen/ Hydrocodone Bitart (Lortab 5/325) 1 tab PRN Q4HRS PRN PO MODERATE PAIN Last administered on 09/20/18at 04:35; Start 09/19/18 at 14:15 Ketorolac Tromethamine (Toradol 15mg Vial) 15 mg PRN Q6HRS PRN IV MILD PAIN Last administered on 09/21/18at 07:49; Start 09/19/18 at 14:15; Stop 09/24/18 at 14:14 Docusate Sodium (Colace) 100 mg BID PO Last administered on 09/21/18at 07:49; Start 09/19/18 at 21:00 Ondansetron HCl (Zofran) 4 mg PRN Q6HRS PRN IV NAUESA, 1ST CHOICE; Start 09/19 at 14:15; Status UNV Phenylephrine HCl (PHENYLEPHRINE in 0.9% NACL PF) 0.1 mg 1X ONCE IV Last administered on 09/19/18at 15:16; Start 09/19/18 at 15:00; Stop 09/19/18 at 15 :01; Status DC Albuterol Sulfate (Ventolin Neb Soln) 2.5 mg PRN Q6HRS PRN NEB SHORTNESS OF BREATH Last administered on 09/20/18at 21:13; Start 09/19/18 at 18:45 Vitals/I & O Vital Sign - Last 24 Hours 09/20/18 09/20/18 09/20/18 09/20/18 11:00 13:00 15:00 16:36 Temp 98.5 97.8 98.5 97.8 Pulse 78 80 Resp 18 18 B/P (MAP) 94/55 (68) 99/64 (76) Pulse Ox 98 96 96 O2 Delivery Room Air Room Air Room Air Room Air 09/20/18 09/20/18 09/20/18 09/20/18 18:09 19:20 19:45 21:15 Temp 98.4 98.4 Pulse 75 B/P (MAP) 103/58 (73) Pulse Ox 96 99 98 O2 Delivery Room Air Room Air Room Air 09/20/18 09/20/18 09/21/18 09/21/18 21:35 23:05 03:01 05:42 Temp 98.2 98.1 98.2 98.1 Pulse 71 65 Resp 18 16 B/P (MAP) 105/51 (69) 96/60 (72) Pulse Ox 96 100 O2 Delivery Room Air Room Air Room Air Room Air 09/21/18 09/21/18 09/21/18 07:00 07:12 08:05 Temp 98.2 98.2 Pulse 54 Resp 18 B/P (MAP) 115/60 (78) Pulse Ox 97 O2 Delivery Room Air Room Air Room Air Intake and Output 09/20/18 09/20/18 09/21/18 15:00 23:00 07:00 Intake Total 720 ml Balance 720 ml PADMINI ROCHA MD Sep 21, 2018 10:22
[2018-09-21 11:00] VITALS: BP 120/73
--- NOTE | 2018-09-21 12:02 | PDOC3 ---
Discharge Summary Date of Admission: Sep 19, 2018 Date of Discharge: Sep 21, 2018 Follow-Up: 3-5 days Admitting Diagnosis comment: DISCHARGE DIAGNOSIS History of Present Illness laparoscopic appendectomy for perforated appendicitis OBESITY HYPOKALEMIA TOSHIA DIET WELL, LESS PAIN KCL 40 MEQ PO X 1 NOW Vitals Vitals Vital Signs Date Time Temp Pulse Resp B/P (MAP) Pulse Ox O2 Delivery O2 Flow Rate FiO2 09/21/18 08:05 Room Air 09/21/18 07:00 98.2 54 18 115/60 (78) 97 98.2 Physical Exam General: Alert, Oriented X3, Cooperative, No acute distress Heart: Regular rate, Normal S1, Normal S2 Lungs: Clear Abdomen: Soft, No tenderness, Other (lap dressings dry, incisional TTP) Extremities: No clubbing, No cyanosis, No edema Skin: No rashes, No breakdown, No significant lesion FINAL DIAGNOSIS Problems Medical Problems: (1) Abdominal pain Status: Acute (2) Acute appendicitis Status: Acute Brief Hospital Course Ms. Esparza is a 48 old [sex] who presented with [ APPENDICITIS, ACUTE] CONDITION AT DISCHARGE: Improved Discharge Medications Current Medications Ketorolac Tromethamine (Toradol 15mg Vial) 15 mg 1X ONCE IV Last administered on 09/19/18at 03:38; Start 09/19/18 at 03:30; Stop 09/19/18 at 03:31; Status DC Sodium Chloride 1,000 ml @ 1,000 mls/hr 1X ONCE IV Last administered on 09/19at 03:38; Start 09/19/18 at 03:30; Stop 09/19/18 at 04:29; Status DC Metoclopramide HCl (Reglan Vial) 10 mg 1X ONCE IV Last administered on at 03:36; Start 09/19/18 at 03:30; Stop 09/19/18 at 03:31; Status DC Fentanyl Citrate (Fentanyl 2ml Vial) 50 mcg 1X ONCE IV Last administered on at 03:49; Start 09/19/18 at 04:00; Stop 09/19/18 at 04:01; Status DC Fentanyl Citrate (Fentanyl 2ml Vial) 50 mcg 1X ONCE IV Last administered on at 04:52; Start 09/19/18 at 05:00; Stop 09/19/18 at 05:01; Status DC Fentanyl Citrate (Fentanyl 2ml Vial) 50 mcg 1X ONCE IV ; Start 09/19/18 at 05: 00; Stop 09/19/18 at 05:01; Status DC Piperacillin Sod/ Tazobactam Sod 3.375 gm/Dextrose 50 ml @ 100 mls/hr 1X ONCE IV Last administered on 09/19/18at 04:56; Start 09/19/18 at 05:00; Stop 09/19 at 05:29; Status DC Ondansetron HCl (Zofran) 4 mg PRN Q8HRS PRN IV NAUSEA/VOMITING 1st choice; Start 09/19/18 at 05:00; Stop 09/19/18 at 08:33; Status DC Fentanyl Citrate (Fentanyl 2ml Vial) 50 mcg PRN Q2HRS PRN IV SEVERE PAIN Last administered on 09/19/18at 11:35; Start 09/19/18 at 05:00; Stop 09/20/18 at 04 :59; Status DC Sodium Chloride 1,000 ml @ 100 mls/hr Q10H IV Last administered on 09/19/18at 16:28; Start 09/19/18 at 05:30; Stop 09/20/18 at 05:29; Status DC Ondansetron HCl (Zofran) 4 mg PRN Q6HRS PRN IV NAUSEA/VOMITING 1st choice; Start 09/19/18 at 08:45 Piperacillin Sod/ Tazobactam Sod (Zosyn Per Pharmacy) 1 each PRN DAILY PRN [facility] SEE COMMENTS; Start 09/19/18 at 08:45 Acetaminophen (Tylenol) 500 mg PRN Q6HRS PRN PO MILD PAIN / TEMP; Start at 08:45 Oxycodone/ Acetaminophen (Percocet 5/325) 1 tab PRN Q4HRS PRN PO SEVERE PAIN Last administered on 09/21/18at 11:51; Start 09/19/18 at 08:45 Piperacillin Sod/ Tazobactam Sod 3.375 gm/Sodium Chloride 50 ml @ 100 mls/hr Q6HRS IV ; Start 09/19/18 at 12:00; Stop 09/19/18 at 12:00; Status DC Morphine Sulfate (Morphine Sulfate) 4 mg PRN Q2HR PRN IV MODERATE-SEVERE PAIN Last administered on 09/19/18at 09:19; Start 09/19/18 at 09:00 Piperacillin Sod/ Tazobactam Sod 3.375 gm/Dextrose 50 ml @ 100 mls/hr Q6HRS IV Last administered on 09/21/18at 11:52; Start 09/19/18 at 12:00 Ondansetron HCl (Zofran) 4 mg PRN Q6HRS PRN IV NAUSEA/VOMITING; Start at 11:00; Stop 09/20/18 at 10:59; Status DC Fentanyl Citrate (Fentanyl 2ml Vial) 25 mcg PRN Q5MIN PRN IV MILD PAIN; Start 09/19/18 at 11:00; Stop 09/20/18 at 10:59; Status DC Fentanyl Citrate (Fentanyl 2ml Vial) 50 mcg PRN Q5MIN PRN IV MODERATE TO SEVERE PAIN Last administered on 09/19/18at 14:24; Start 09/19/18 at 11:00; Stop 09/20/18 at 10:59; Status DC Morphine Sulfate (Morphine Sulfate) 1 mg PRN Q10MIN PRN IV SEVERE PAIN; Start 09/19/18 at 11:00; Stop 09/20/18 at 10:59; Status DC Ringer's Solution 1,000 ml @ 30 mls/hr Q24H IV ; Start 09/19/18 at 10:50; Stop 09/19/18 at 22:49; Status DC Lidocaine HCl (Xylocaine-Mpf 1% 2ml Vial) 2 ml 1X PRN PRN ID IV START; Start 09/19/18 at 11:00; Stop 09/20/18 at 10:59; Status DC Hydromorphone HCl (Dilaudid) 0.5 mg PRN Q10MIN PRN IV SEV PAIN, Second choice; Start 09/19/18 at 11:00; Stop 09/20/18 at 10:59; Status DC Prochlorperazine Edisylate (Compazine) 5 mg PACU PRN PRN IV NAUSEA, MRX1; Start 09/19/18 at 11:00; Stop 09/20/18 at 10:59; Status DC Lactobacillus Rhamnosus (Culturelle) 1 cap BID PO Last administered on at 07:49; Start 09/19/18 at 21:00 Bupivacaine HCl/ Epinephrine Bitart (Sensorcain-Mpf Epi 0.5%-1:[id number]) 30 ml STK -MED ONCE .ROUTE Last administered on 09/19/18at 13:41; Start 09/19/18 at 12: 23; Stop 09/19/18 at 12:24; Status DC Glycopyrrolate (Robinul) 1 mg STK-MED ONCE .ROUTE ; Start 09/19/18 at 12:47; Stop 09/19/18 at 12:48; Status DC Rocuronium [place] (Zemuron) 100 mg STK-MED ONCE .ROUTE ; Start 09/19/18 at 12: 47; Stop 09/19/18 at 12:48; Status DC Fentanyl Citrate (Fentanyl 2ml Vial) 100 mcg STK-MED ONCE .ROUTE ; Start at 12:47; Stop 09/19/18 at 12:48; Status DC Neostigmine Methylsulfate (Neostigmine Methylsulfate) 5 mg STK-MED ONCE .ROUTE ; Start 09/19/18 at 12:47; Stop 09/19/18 at 12:48; Status DC Midazolam HCl (Versed) 2 mg STK-MED ONCE .ROUTE ; Start 09/19/18 at 12:48; Stop 09/19/18 at 12:49; Status DC Propofol 20 ml @ As Directed STK-MED ONCE IV ; Start 09/19/18 at 12:48; Stop 09/19/18 at 12:49; Status DC Lidocaine HCl (Lidocaine Pf 2% Vial) 5 ml STK-MED ONCE .ROUTE ; Start 09/19/18 at 12:48; Stop 09/19/18 at 12:49; Status DC Dexamethasone Sodium Phosphate (Decadron) 20 mg STK-MED ONCE .ROUTE ; Start at 12:48; Stop 09/19/18 at 12:49; Status DC Ondansetron HCl (Zofran) 4 mg STK-MED ONCE .ROUTE ; Start 09/19/18 at 12:48; Stop 09/19/18 at 12:49; Status DC Ketorolac Tromethamine (Toradol For Or Only) 30 mg STK-MED ONCE INJ ; Start at 12:48; Stop 09/19/18 at 12:49; Status DC Vasopressin (Vasostrict) 20 unit STK-MED ONCE .ROUTE ; Start 09/19/18 at 13:33 ; Stop 09/19/18 at 13:34; Status DC Sodium Chloride (Normal Saline Flush) 3 ml QSHIFT PRN IV AFTER MEDS AND BLOOD DRAWS; Start 09/19/18 at 14:15 Ringer's Solution 1,000 ml @ 100 mls/hr Q10H IV Last administered on at 14:30; Start 09/19/18 at 14:30; Stop 09/21/18 at 04:52; Status DC Acetaminophen/ Hydrocodone Bitart (Lortab 5/325) 1 tab PRN Q4HRS PRN PO MODERATE PAIN Last administered on 09/20/18at 04:35; Start 09/19/18 at 14:15 Ketorolac Tromethamine (Toradol 15mg Vial) 15 mg PRN Q6HRS PRN IV MILD PAIN Last administered on 09/21/18at 07:49; Start 09/19/18 at 14:15; Stop 09/24/18 at 14:14 Docusate Sodium (Colace) 100 mg BID PO Last administered on 09/21/18at 07:49; Start 09/19/18 at 21:00 Ondansetron HCl (Zofran) 4 mg PRN Q6HRS PRN IV NAUESA, 1ST CHOICE; Start 09/19 at 14:15; Status UNV Phenylephrine HCl (PHENYLEPHRINE in 0.9% NACL PF) 0.1 mg 1X ONCE IV Last administered on 09/19/18at 15:16; Start 09/19/18 at 15:00; Stop 09/19/18 at 15 :01; Status DC Albuterol Sulfate (Ventolin Neb Soln) 2.5 mg PRN Q6HRS PRN NEB SHORTNESS OF BREATH Last administered on 09/20/18at 21:13; Start 09/19/18 at 18:45 Vital Signs Vital Signs Date Time Temp Pulse Resp B/P (MAP) Pulse Ox O2 Delivery O2 Flow Rate FiO2 09/21/18 11:51 Room Air 09/21/18 11:00 98.2 120/73 (89) 99 98.2 Labs Laboratory Tests Test 09/20/18 04:55 09/21/18 04:35 White Blood Count 10.4 x10^3/uL (4.0-11.0) 5.8 x10^3/uL (4.0-11.0) Red Blood Count 3.70 x10^6/uL (3.50-5.40) 3.92 x10^6/uL (3.50-5.40) Hemoglobin 9.9 g/dL (12.0-15.5) 10.7 g/dL (12.0-15.5) Hematocrit 30.7 % (36.0-47.0) 32.4 % (36.0-47.0) Mean Corpuscular Volume 83 fL (79-100) 83 fL (79-100) Mean Corpuscular Hemoglobin 27 pg (25-35) 27 pg (25-35) Mean Corpuscular Hemoglobin Concent 32 g/dL (31-37) 33 g/dL (31-37) Red Cell Distribution Width 16.2 % (11.5-14.5) 16.4 % (11.5-14.5) Platelet Count 232 x10^3/uL (140-400) 236 x10^3/uL (140-400) Neutrophils (%) (Auto) 87 % (31-73) 55 % (31-73) Lymphocytes (%) (Auto) 8 % (24-48) 35 % (24-48) Monocytes (%) (Auto) 5 % (0-9) 8 % (0-9) Eosinophils (%) (Auto) 0 % (0-3) 2 % (0-3) Basophils (%) (Auto) 0 % (0-3) 0 % (0-3) Neutrophils # (Auto) 9.0 x10^3uL (1.8-7.7) 3.2 x10^3uL (1.8-7.7) Lymphocytes # (Auto) 0.8 x10^3/uL (1.0-4.8) 2.0 x10^3/uL (1.0-4.8) Monocytes # (Auto) 0.5 x10^3/uL (0.0-1.1) 0.4 x10^3/uL (0.0-1.1) Eosinophils # (Auto) 0.0 x10^3/uL (0.0-0.7) 0.1 x10^3/uL (0.0-0.7) Basophils # (Auto) 0.0 x10^3/uL (0.0-0.2) 0.0 x10^3/uL (0.0-0.2) Segmented Neutrophils % 94 % (35-66) Lymphocytes % 6 % (24-48) Platelet Estimate Adequate (ADEQUATE) Anisocytosis Slight Sodium Level 143 mmol/L (136-145) 141 mmol/L (136-145) Potassium Level 3.5 mmol/L (3.5-5.1) 3.2 mmol/L (3.5-5.1) Chloride Level 106 mmol/L (98-107) 103 mmol/L (98-107) Carbon Dioxide Level 28 mmol/L (21-32) 27 mmol/L (21-32) Anion Gap 9 (6-14) 11 (6-14) Blood Urea Nitrogen 11 mg/dL (7-20) 13 mg/dL (7-20) Creatinine 1.0 mg/dL (0.6-1.0) 1.1 mg/dL (0.6-1.0) Estimated GFR (Cockcroft-Gault) 71.0 63.6 Glucose Level 119 mg/dL (70-99) 98 mg/dL (70-99) Calcium Level 8.6 mg/dL (8.5-10.1) 8.5 mg/dL (8.5-10.1) BUN/Creatinine Ratio 12 (6-20) Total Bilirubin 0.2 mg/dL (0.2-1.0) Aspartate Amino Transf (AST/SGOT) 13 U/L (15-37) Alanine Aminotransferase (ALT/SGPT) 20 U/L (14-59) Alkaline Phosphatase 78 U/L (46-116) Total Protein 6.7 g/dL (6.4-8.2) Albumin 2.9 g/dL (3.4-5.0) Albumin/Globulin Ratio 0.8 (1.0-1.7) Laboratory Tests Test 09/21/18 04:35 White Blood Count 5.8 x10^3/uL (4.0-11.0) Red Blood Count 3.92 x10^6/uL (3.50-5.40) Hemoglobin 10.7 g/dL (12.0-15.5) Hematocrit 32.4 % (36.0-47.0) Mean Corpuscular Volume 83 fL (79-100) Mean Corpuscular Hemoglobin 27 pg (25-35) Mean Corpuscular Hemoglobin Concent 33 g/dL (31-37) Red Cell Distribution Width 16.4 % (11.5-14.5) Platelet Count 236 x10^3/uL (140-400) Neutrophils (%) (Auto) 55 % (31-73) Lymphocytes (%) (Auto) 35 % (24-48) Monocytes (%) (Auto) 8 % (0-9) Eosinophils (%) (Auto) 2 % (0-3) Basophils (%) (Auto) 0 % (0-3) Neutrophils # (Auto) 3.2 x10^3uL (1.8-7.7) Lymphocytes # (Auto) 2.0 x10^3/uL (1.0-4.8) Monocytes # (Auto) 0.4 x10^3/uL (0.0-1.1) Eosinophils # (Auto) 0.1 x10^3/uL (0.0-0.7) Basophils # (Auto) 0.0 x10^3/uL (0.0-0.2) Sodium Level 141 mmol/L (136-145) Potassium Level 3.2 mmol/L (3.5-5.1) Chloride Level 103 mmol/L (98-107) Carbon Dioxide Level 27 mmol/L (21-32) Anion Gap 11 (6-14) Blood Urea Nitrogen 13 mg/dL (7-20) Creatinine 1.1 mg/dL (0.6-1.0) Estimated GFR (Cockcroft-Gault) 63.6 BUN/Creatinine Ratio 12 (6-20) Glucose Level 98 mg/dL (70-99) Calcium Level 8.5 mg/dL (8.5-10.1) Total Bilirubin 0.2 mg/dL (0.2-1.0) Aspartate Amino Transf (AST/SGOT) 13 U/L (15-37) Alanine Aminotransferase (ALT/SGPT) 20 U/L (14-59) Alkaline Phosphatase 78 U/L (46-116) Total Protein 6.7 g/dL (6.4-8.2) Albumin 2.9 g/dL (3.4-5.0) Albumin/Globulin Ratio 0.8 (1.0-1.7) Allergies Allergies Coded Allergies Type Severity Reaction Last Updated Verified No Known Drug Allergies 09/19/18 No Disposition/Orders: D/C to Home PADMINI ROCHA MD Sep 21, 2018 12:02
--- NOTE | 2018-09-21 12:03 | DISCH ---
DISCHARGE INSTRUCTIONS Condition on Discharge Condition on Discharge: Stable Activity After Discharge Activity Instructions for Disc: Activity as tolerated Lifting Instructions after Dis: No heavy lifting, No pulling or pushing Exercise Instruction after Dis: Walk 10 min, 3 x per day Driving Instructions after Dis: Do not drive Diet after Discharge Diet after Discharge: Regular Contacting the DR. after DC Call your doctor for: If your condition worsens PADMINI ROCHA MD Sep 21, 2018 12:03
[2018-09-21] MEDS ORDERED: OXYC1TAB15 PO (12:06)
[2018-09-21] MEDS ORDERED: DOCU-109 PO (12:06)
[2018-09-21] MEDS ORDERED: LACT1CAP19 PO (12:06)
[2018-09-21] MEDS ORDERED: AMOX1TAB61 PO (12:07)
--- NOTE | 2018-09-21 12:07 | PDOC ---
SURGICAL PROGRESS NOTE Subjective tolerating diet ambulating pain managed Vital Signs Vital Signs Date Time Temp Pulse Resp B/P (MAP) Pulse Ox O2 Delivery O2 Flow Rate FiO2 09/21/18 11:51 Room Air 09/21/18 11:00 98.2 18 18 120/73 (89) 99 98.2 I&O Intake and Output 09/21/18 07:00 Intake Total 720 ml Balance 720 ml Intake Oral 720 ml # Voids 8 General: Alert, Oriented X3, Cooperative, No acute distress Abdomen: Soft, Other (lap sites c/d/i, no erythema ) Labs Laboratory Tests Test 09/20/18 04:55 09/21/18 04:35 White Blood Count 10.4 x10^3/uL (4.0-11.0) 5.8 x10^3/uL (4.0-11.0) Red Blood Count 3.70 x10^6/uL (3.50-5.40) 3.92 x10^6/uL (3.50-5.40) Hemoglobin 9.9 g/dL (12.0-15.5) 10.7 g/dL (12.0-15.5) Hematocrit 30.7 % (36.0-47.0) 32.4 % (36.0-47.0) Mean Corpuscular Volume 83 fL (79-100) 83 fL (79-100) Mean Corpuscular Hemoglobin 27 pg (25-35) 27 pg (25-35) Mean Corpuscular Hemoglobin Concent 32 g/dL (31-37) 33 g/dL (31-37) Red Cell Distribution Width 16.2 % (11.5-14.5) 16.4 % (11.5-14.5) Platelet Count 232 x10^3/uL (140-400) 236 x10^3/uL (140-400) Neutrophils (%) (Auto) 87 % (31-73) 55 % (31-73) Lymphocytes (%) (Auto) 8 % (24-48) 35 % (24-48) Monocytes (%) (Auto) 5 % (0-9) 8 % (0-9) Eosinophils (%) (Auto) 0 % (0-3) 2 % (0-3) Basophils (%) (Auto) 0 % (0-3) 0 % (0-3) Neutrophils # (Auto) 9.0 x10^3uL (1.8-7.7) 3.2 x10^3uL (1.8-7.7) Lymphocytes # (Auto) 0.8 x10^3/uL (1.0-4.8) 2.0 x10^3/uL (1.0-4.8) Monocytes # (Auto) 0.5 x10^3/uL (0.0-1.1) 0.4 x10^3/uL (0.0-1.1) Eosinophils # (Auto) 0.0 x10^3/uL (0.0-0.7) 0.1 x10^3/uL (0.0-0.7) Basophils # (Auto) 0.0 x10^3/uL (0.0-0.2) 0.0 x10^3/uL (0.0-0.2) Segmented Neutrophils % 94 % (35-66) Lymphocytes % 6 % (24-48) Platelet Estimate Adequate (ADEQUATE) Anisocytosis Slight Sodium Level 143 mmol/L (136-145) 141 mmol/L (136-145) Potassium Level 3.5 mmol/L (3.5-5.1) 3.2 mmol/L (3.5-5.1) Chloride Level 106 mmol/L (98-107) 103 mmol/L (98-107) Carbon Dioxide Level 28 mmol/L (21-32) 27 mmol/L (21-32) Anion Gap 9 (6-14) 11 (6-14) Blood Urea Nitrogen 11 mg/dL (7-20) 13 mg/dL (7-20) Creatinine 1.0 mg/dL (0.6-1.0) 1.1 mg/dL (0.6-1.0) Estimated GFR (Cockcroft-Gault) 71.0 63.6 Glucose Level 119 mg/dL (70-99) 98 mg/dL (70-99) Calcium Level 8.6 mg/dL (8.5-10.1) 8.5 mg/dL (8.5-10.1) BUN/Creatinine Ratio 12 (6-20) Total Bilirubin 0.2 mg/dL (0.2-1.0) Aspartate Amino Transf (AST/SGOT) 13 U/L (15-37) Alanine Aminotransferase (ALT/SGPT) 20 U/L (14-59) Alkaline Phosphatase 78 U/L (46-116) Total Protein 6.7 g/dL (6.4-8.2) Albumin 2.9 g/dL (3.4-5.0) Albumin/Globulin Ratio 0.8 (1.0-1.7) Laboratory Tests Test 09/21/18 04:35 White Blood Count 5.8 x10^3/uL (4.0-11.0) Red Blood Count 3.92 x10^6/uL (3.50-5.40) Hemoglobin 10.7 g/dL (12.0-15.5) Hematocrit 32.4 % (36.0-47.0) Mean Corpuscular Volume 83 fL (79-100) Mean Corpuscular Hemoglobin 27 pg (25-35) Mean Corpuscular Hemoglobin Concent 33 g/dL (31-37) Red Cell Distribution Width 16.4 % (11.5-14.5) Platelet Count 236 x10^3/uL (140-400) Neutrophils (%) (Auto) 55 % (31-73) Lymphocytes (%) (Auto) 35 % (24-48) Monocytes (%) (Auto) 8 % (0-9) Eosinophils (%) (Auto) 2 % (0-3) Basophils (%) (Auto) 0 % (0-3) Neutrophils # (Auto) 3.2 x10^3uL (1.8-7.7) Lymphocytes # (Auto) 2.0 x10^3/uL (1.0-4.8) Monocytes # (Auto) 0.4 x10^3/uL (0.0-1.1) Eosinophils # (Auto) 0.1 x10^3/uL (0.0-0.7) Basophils # (Auto) 0.0 x10^3/uL (0.0-0.2) Sodium Level 141 mmol/L (136-145) Potassium Level 3.2 mmol/L (3.5-5.1) Chloride Level 103 mmol/L (98-107) Carbon Dioxide Level 27 mmol/L (21-32) Anion Gap 11 (6-14) Blood Urea Nitrogen 13 mg/dL (7-20) Creatinine 1.1 mg/dL (0.6-1.0) Estimated GFR (Cockcroft-Gault) 63.6 BUN/Creatinine Ratio 12 (6-20) Glucose Level 98 mg/dL (70-99) Calcium Level 8.5 mg/dL (8.5-10.1) Total Bilirubin 0.2 mg/dL (0.2-1.0) Aspartate Amino Transf (AST/SGOT) 13 U/L (15-37) Alanine Aminotransferase (ALT/SGPT) 20 U/L (14-59) Alkaline Phosphatase 78 U/L (46-116) Total Protein 6.7 g/dL (6.4-8.2) Albumin 2.9 g/dL (3.4-5.0) Albumin/Globulin Ratio 0.8 (1.0-1.7) Problem List Problems Medical Problems: (1) Abdominal pain Status: Acute (2) Acute appendicitis Status: Acute Assessment/Plan s/p appy doing [facility] CESAR SALCIDO APRN Sep 21, 2018 12:07
[2018-09-21] MEDS ORDERED: POTASSIUM CHLORIDE 20 MEQ TABLET.ER. PO ONE (12:30)
--- NOTE | 2018-09-21 15:09 | PATHOLOGY ---
[facility] Accession Number: [id number] . 01 Material submitted: . APPENDIX . 01 Clinical history: . Acute appendicitis . 02 Diagnosis: Appendix, "appendix appendectomy": - Acute suppurative appendicitis with acute inflammation extending into the periappendiceal fat. (SHA:aditi; 09/21/2018) QMS/09/21/2018 . 02 Electronically signed: . Pelon Diaz MD, Pathologist NPI- [id number] . 01 Gross description: . The specimen is received in formalin, labeled "Lorin Esparza, appendix". Received is a vermiform appendix measuring 12.7 cm in length by up to 1.0 cm in diameter with a moderate amount of attached mesoappendix. The serosal surface is pale san to cao-san in appearance with a slight amount of overlying exudate. The surgical margin is inked. Sectioning reveals a dilated lumen filled with fecal material. No distinct nodules or lesions are noted grossly. The specimen is submitted representatively in cassettes A1 and A2, with the proximal margin and bisected tip submitted in cassette A1. (CAA; 09/20/2018) QAC/QAC . 02 Pathologist provided ICD-10: K35.80 . 02 CPT . 785309 Specimen Comment: A courtesy copy of this report has been sent to Specimen Comment: [phone], , . Specimen Comment: Report sent to ,DR YAN / DR BAE Specimen Comment: A duplicate report has been generated due to demographic updates. Performed at: [address], [place], [place] [id number] MD Du Aguirre MD Phone: [phone] Performed at: 02 [facility] [address] [place] [id number] MD Ramírez Bocanegra MD Phone: [phone]
== END 2018-09-21 13:50 | disposition home or self-care (01) | DRG 339 ==
LOC: ER 02:57 → 4 NORTH 04:45
PROVIDERS: ADMIT Internal Medicine; ATTEND Internal Medicine
PROC: 0DTJ4ZZ Resection of Appendix, Percutaneous Endoscopic Approach (ICD-10-PCS; principal; 2018-09-19 13:00)
DX: K35.32 Acute appendicitis with perforation, localized peritonitis, and gangrene, without abscess (principal); R65.10 Systemic inflammatory response syndrome (SIRS) of non-infectious origin without acute organ dysfunction; J45.909 Unspecified asthma, uncomplicated; I10 Essential (primary) hypertension; F32.9 Major depressive disorder, single episode, unspecified; E87.6 Hypokalemia; E66.9 Obesity, unspecified; Z68.34 Body mass index [BMI] 34.0-34.9, adult; Z90.710 Acquired absence of both cervix and uterus
CPT/HCPCS: 36415; 74176; 80048; 80053; 83690; 83735; 85007; 85025; 88304; 94640; 96374; 96375; J1100; J1885; J2001; J2250; J2270; J2370; J2405; J2543; J2704; J2710; J2765; J3010; J3490; J7030; J7120; J7613; 99285-25

== ENCOUNTER 2019-01-16 12:24 | Emergency (ER) | payer OTHER ==
[~2019-01-16] VITALS: Ht 165.1 cm; Wt 93.9 kg
[~2019-01-16 12:24] MED LIST: AMOX1TAB61 PO; BUPR200T PO; CARI350T14 PO; DICL50TA4 PO; DOCU-109 PO; LACT1CAP19 PO; LOSA25TA12 PO; OMEP20CA10 PO; OXYC-411 PO; OXYC1TAB15 PO; TRIA1CAP3 PO; VENL150C6 PO
[2019-01-16 12:50] VITALS: BP 131/75
[2019-01-16] MEDS ORDERED: predniSONE 10 MG TABLET PO ONE (14:15)
[2019-01-16] MEDS ORDERED: HYDROcodone/APAP 5/325MG 1 TAB TABLET PO ONE (14:15)
[2019-01-16] MEDS ORDERED: CARI350T PO (14:29)
[2019-01-16] MEDS ORDERED: PRED50TA PO (14:29)
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
== END 2019-01-16 14:43 | disposition home or self-care (01) ==
LOC: ER 12:24
DX: G89.29 Other chronic pain (principal); M54.41 Lumbago with sciatica, right side; R10.31 Right lower quadrant pain; I10 Essential (primary) hypertension; K21.9 Gastro-esophageal reflux disease without esophagitis; J45.909 Unspecified asthma, uncomplicated; Z90.89 Acquired absence of other organs; Z90.710 Acquired absence of both cervix and uterus
CPT/HCPCS: 99283; J7512

== ENCOUNTER 2019-04-21 14:51 | Emergency (ER) | payer OTHER ==
[~2019-04-21] VITALS: Ht 162.6 cm; Wt 88.5 kg
[~2019-04-21 14:51] MED LIST changes: +CARI350T PO; +PRED50TA PO
[2019-04-21] MEDS ORDERED: KETOROLAC 30 MG/ML VIAL. IV ONE (15:30)
[2019-04-21] MEDS ORDERED: IV NORMAL SALINE 1000ML BAG 1,000 ML IV ONE (15:30)
[2019-04-21] MEDS ORDERED: diphenhydrAMINE 50 MG/ML VIAL IVP ONE (15:30)
[2019-04-21] MEDS ORDERED: METOCLOPRAMIDE HCL 10 MG/2 ML VIAL. IV ONE (15:30)
--- NOTE | 2019-04-21 15:51 | PHYS DOC ---
Past Medical History Past Medical History: GERD, Hypertension, Migraines Additional Past Medical Histor: MVP,CHRONIC PAIN Past Surgical History: Hysterectomy Additional Past Surgical Histo: Back surgery Alcohol Use: None Drug Use: None Adult General Chief Complaint Chief Complaint: HEADACHE HPI HPI Patient is a 48 year old [female] who presents with [headache. Patient reports she has a history of migraine headaches, this feels like there is what she has had. States she has been dealing with this for the last 2-3 days, had tried her Fioricet at home without any improvement, had been seen in the emergency room yesterday and received a Toradol shot, without improvement. Patient reports that she had moved here recently and had previously been receiving monthly magnesium and vitamin B2 infusions and her provider's office in [place]. States she has been trying to find an office here that will developed a not had any success. States this feels identical her other migraines, minimal photophobia, some nausea. Denies fever, denies trauma, denies visual changes.] Review of Systems Review of Systems Constitutional: Denies fever or chills [] Eyes: Denies change in visual acuity, redness, or eye pain [] HENT: Denies nasal congestion or sore throat [] Respiratory: Denies cough or shortness of breath [] Cardiovascular: No additional information not addressed in HPI [] GI: Denies abdominal pain, reports minimal nausea, denies vomiting, bloody stools or diarrhea [] : Denies dysuria or hematuria [] Musculoskeletal: Denies back pain or joint pain [] Integument: Denies rash or skin lesions [] Neurologic: Reports headache, denies focal weakness or sensory changes [] Endocrine: Denies polyuria or polydipsia [] All other systems were reviewed and found to be within normal limits, except as documented in this note. Current Medications Current Medications Current Medications Medications (Trade) Dose Ordered Sig/Bree Start Time Stop Time Status Last Admin Dose Admin Diphenhydramine HCl (Benadryl) 50 mg 1X ONCE 04/21/19 15:30 04/21/19 15:31 DC 04/21/19 15:34 50 MG Ketorolac Tromethamine (Toradol 30mg Vial) 30 mg 1X ONCE 04/21/19 15:30 04/21/19 15:31 DC 04/21/19 15:35 30 MG Metoclopramide HCl (Reglan Vial) 10 mg 1X ONCE 04/21/19 15:30 04/21/19 15:31 DC 04/21/19 15:35 10 MG Sodium Chloride 1,000 ml @ 1,000 mls/hr 1X ONCE 04/21/19 15:30 04/21/19 16:29 DC 04/21/19 15:34 1,000 MLS/HR Allergies Allergies Allergies Coded Allergies Type Severity Reaction Last Updated Verified No Known Drug Allergies 09/19/18 No Physical Exam Physical Exam Constitutional: Well developed, well nourished, no acute distress, non-toxic appearance. [] HENT: Normocephalic, atraumatic, bilateral external ears normal, oropharynx moist, no oral exudates, nose normal. [] Eyes: PERRLA, EOMI, conjunctiva normal, no discharge. [] Neck: Normal range of motion, no tenderness, supple, no stridor. [] Cardiovascular:Heart rate regular rhythm, no murmur [] Lungs & Thorax: Bilateral breath sounds clear to auscultation [] Abdomen: Bowel sounds normal, soft, no tenderness, no masses, no pulsatile masses. [] Skin: Warm, dry, no erythema, no rash. [] Back: No tenderness, no CVA tenderness. [] Extremities: No tenderness, no cyanosis, no clubbing, ROM intact, no edema. [] Neurologic: Alert and oriented X 3, normal motor function, normal sensory function, no focal deficits noted. [] Psychologic: Affect normal, judgement normal, mood normal. [] Current Patient Data Vital Signs Vital Signs Date Time Temp Pulse Resp B/P (MAP) Pulse Ox O2 Delivery O2 Flow Rate FiO2 04/21/19 17:04 96 16 99 04/21/19 15:01 98.6 127/84 (98) Room Air 98.6 EKG EKG [] Radiology/Procedures Radiology/Procedures [] Course & Med Decision Making Course & Med Decision Making Pertinent Labs and Imaging studies reviewed. (See chart for details) Discussed with patient her migraine symptoms, but this one being unchanged from normal. Discussed patient continue to search for a primary care provider who can do her infusion therapy she was having before. [Following medication and fluids, patient reports she feels much better. States she already has a headache, reports she feels that she is ready to go.] Dragon Disclaimer Dragon Disclaimer This electronic medical record was generated, in whole or in part, using a voice recognition dictation system. Departure Departure Impression: Primary Impression: Migraine Disposition: 01 HOME, SELF-CARE Condition: IMPROVED Referrals: JESICA HEIN MD (PCP) Patient Instructions: Migraine Headache Additional Instructions: As we discussed, continue search for a primary care provider who can do the preventative treatment she had been receiving before. Rest, hydrate as you have been. Problem Qualifiers Primary Impression: Migraine Migraine type: without aura Status migrainosus presence: without status migrainosus Intractability: intractable Qualified Codes: G43.019 - Migraine without aura, intractable, without status migrainosus YOUNG DICKINSON DIRECTOR OF RETAIL MERCHANDISING Apr 21, 2019 15:50
[2019-04-21 17:04] VITALS: BP 124/68
== END 2019-04-21 17:59 | disposition home or self-care (01) ==
LOC: ER 14:51
DX: G43.019 Migraine without aura, intractable, without status migrainosus (principal); K21.9 Gastro-esophageal reflux disease without esophagitis; I10 Essential (primary) hypertension; G89.29 Other chronic pain
CPT/HCPCS: 96374; 96375; 99284; J1200; J1885; J2765; J7030

== ENCOUNTER 2019-05-08 16:17 | Emergency (ER) | payer OTHER ==
[~2019-05-08] VITALS: Ht 162.6 cm; Wt 90.7 kg
[2019-05-08 17:20] VITALS: BP 120/75
--- NOTE | 2019-05-08 18:16 | PHYS DOC ---
Past Medical History Past Medical History: GERD, Hypertension, Migraines Additional Past Medical Histor: MVP,CHRONIC PAIN Past Surgical History: Hysterectomy Additional Past Surgical Histo: Back surgery Alcohol Use: None Drug Use: None Adult General Chief Complaint Chief Complaint: LOWER EXTREMITY SWELLING HPI HPI Patient is a 48 year old female that presents with swelling to the right leg and foot this morning for 5 days. The patient states that she had a blood clot year and a half ago when this happened. Has had a recent surgery. Rates pain as 12/30. Review of Systems Review of Systems Constitutional: Denies fever or chills [] Eyes: Denies change in visual acuity, redness, or eye pain [] HENT: Denies nasal congestion or sore throat [] Respiratory: Denies cough or shortness of breath [] Cardiovascular: No additional information not addressed in HPI [] GI: Denies abdominal pain, nausea, vomiting, bloody stools or diarrhea [] : Denies dysuria or hematuria [] Musculoskeletal: Reports R leg pain and edema Integument: Denies rash or skin lesions [] Neurologic: Denies headache, focal weakness or sensory changes [] Endocrine: Denies polyuria or polydipsia [] Complete systems were reviewed and found to be within normal limits, except as documented in this note. Allergies Allergies Allergies Coded Allergies Type Severity Reaction Last Updated Verified No Known Drug Allergies 09/19/18 No Physical Exam Physical Exam Constitutional: Well developed, well nourished, no acute distress, non-toxic appearance. [] HENT: Normocephalic, atraumatic, bilateral external ears normal, oropharynx moist, no oral exudates, nose normal. [] Eyes: PERRLA, EOMI, conjunctiva normal, no discharge. [] Neck: Normal range of motion, no tenderness, supple, no stridor. [] Cardiovascular:Heart rate regular rhythm, no murmur [] Lungs & Thorax: Bilateral breath sounds clear to auscultation [] Abdomen: Bowel sounds normal, soft, no tenderness, no masses, no pulsatile masses. [] Skin: Warm, dry, no erythema, no rash. [] Back: No tenderness, no CVA tenderness. [] Extremities: Edema to R foot and leg, pain Neurologic: Alert and oriented X 3, normal motor function, normal sensory function, no focal deficits noted. [] Psychologic: Affect normal, judgement normal, mood normal. [] Current Patient Data Vital Signs Vital Signs Date Time Temp Pulse Resp B/P (MAP) Pulse Ox O2 Delivery O2 Flow Rate FiO2 05/08/19 17:20 98.2 91 16 120/75 (90) 99 98.2 EKG EKG [] Radiology/Procedures Radiology/Procedures []PATIENT: SHARRON HENSON LACCOUNT: [id number]#: [id number] : 1970 LOCATION: ER AGE: 48 SEX: F EXAM STATUS: DEP ER ORD. PHYSICIAN: JENNIFER AMEZQUITA APRN REASON: edema, and pain PROCEDURE: VENOUS LOWER EXTREMITY RIGHT Right Lower Extremity Venous Doppler Ultrasound History: Right lower extremity pain and swelling for 5 days Comparison: None Procedure: Color flow, duplex, spectral analysis and 2D images are obtained with and without compression in the area of the common femoral vein, superficial femoral vein - femoral vein junction, main femoral vein (superficial femoral vein) and popliteal vein. Veins of the proximal calf are also imaged. Findings: There is normal duplex flow, color flow and compressibility of all visualized vein segments. No evidence of deep venous thrombus is present. Impression: No evidence of DVT. Electronically signed by: Twin Kumar III, MD (05/08/2019 7:57 PM) [facility] DICTATED and SIGNED BY: TWIN KUMAR III, MD DATE: 05/08/191956 Course & Med Decision Making Course & Med Decision Making Pertinent Labs and Imaging studies reviewed. (See chart for details) Will get ultrasound of R leg. Imaging is negative. Will have follow up with primary care. Dragon Disclaimer Dragon Disclaimer This electronic medical record was generated, in whole or in part, using a voice recognition dictation system. Departure Departure Impression: Primary Impression: Right leg swelling Disposition: 01 HOME, SELF-CARE Condition: STABLE Referrals: JESICA HEIN MD (PCP) Patient Instructions: Peripheral Edema Additional Instructions: Thank you for visiting [facility]. We appreciate you trusting us with your care. If any additional problems come up don't hesitate to return to visit us. Please follow up with your primary care provider so they can plan additional care if needed and know about the problem that you had. If symptoms worsen come back to the Emergency Department. Any concerning symptoms that start such as chest pain, shortness of air, weakness or numbness on one side of the body, running high fevers or any other concerning symptoms return to the ER. JENNIFER AMEZQUITA APRN May 08, 2019 18:16
--- NOTE | 2019-05-08 20:00 | RAD ---
Right Lower Extremity Venous Doppler Ultrasound History: Right lower extremity pain and swelling for 5 days Comparison: None Procedure: Color flow, duplex, spectral analysis and 2D images are obtained with and without compression in the area of the common femoral vein, superficial femoral vein - femoral vein junction, main femoral vein (superficial femoral vein) and popliteal vein. Veins of the proximal calf are also imaged. Findings: There is normal duplex flow, color flow and compressibility of all visualized vein segments. No evidence of deep venous thrombus is present. Impression: No evidence of DVT. Electronically signed by: Fredy Lerner III, MD (05/08/2019 7:57 PM) [facility]
== END 2019-05-08 19:34 | disposition home or self-care (01) ==
LOC: ER 16:17
DX: R22.41 Localized swelling, mass and lump, right lower limb (principal); G43.909 Migraine, unspecified, not intractable, without status migrainosus; I10 Essential (primary) hypertension; K21.9 Gastro-esophageal reflux disease without esophagitis; G89.29 Other chronic pain; Z90.710 Acquired absence of both cervix and uterus; Z98.890 Other specified postprocedural states
CPT/HCPCS: 93971; 99284

== ENCOUNTER 2019-05-10 18:15 | Emergency (ER) | payer OTHER ==
[~2019-05-10] VITALS: Ht 162.6 cm; Wt 90.7 kg
--- NOTE | 2019-05-10 19:36 | PHYS DOC ---
Past Medical History Past Medical History: GERD, Hypertension, Migraines Additional Past Medical Histor: MVP,CHRONIC PAIN Past Surgical History: Hysterectomy Additional Past Surgical Histo: Back surgery Alcohol Use: None Drug Use: None Adult General Chief Complaint Chief Complaint: LOWER EXTREMITY SWELLING [facility] HPI Patient is a 48 year old [female] who presents with [right lower extremity swelling and headache]. Pt reports onset of headache was 3 weeks ago and her swelling happened a few days before her previous visit here at [facility]. She states that she went to urgent care earlier today for a headache and they saw her leg swelling, did an ekg, and the ekg prompted them to send her to the emergency department. She has a history of migraine headaches and reports that her current headache is similar to past headaches. She describes it as a dull achey pain that can become throbbing and rates it a 6/10. She reports a 1/10 pain in the right lower extremity and notes that it is less severe and has decreased in size since she was seen here last at [facility] (for the leg swelling). She had an epidural injection for back pain a few days ago. The current headache has been present for weeks before said epidural. She denies chest pain, abdominal pain, shortness of breath, n/v, shoulder pain, fever/chills, and lightheadedness. She reports headache, diarrhea, and her "typical" back pain. Review of Systems Review of Systems Constitutional: Denies fever or chills Eyes: Denies change in visual acuity, redness, or eye pain HENT: Denies nasal congestion or sore throat Respiratory: Denies cough or shortness of breath Cardiovascular: No additional information not addressed in HPI GI: Denies abdominal pain, nausea, vomiting, bloody stools [Admits diarrhea] : Denies dysuria or hematuria Musculoskeletal: Denies joint pain [Admits back pain - states it is typical for her as she has chronic back pain and a spinal fusion] Integument: Denies rash or skin lesions [Admits leg swelling] Neurologic: Denies focal weakness or sensory changes [Admits headache] Endocrine: Denies polyuria or polydipsia All other systems were reviewed and found to be within normal limits, except as documented in this note. Current Medications Current Medications Current Medications Medications (Trade) Dose Ordered Sig/Bree Start Time Stop Time Status Last Admin Dose Admin Dexamethasone Sodium Phosphate (Decadron) 10 mg 1X ONCE 05/10/19 19:45 05/10/19 19:46 DC 05/10/19 20:06 10 MG Diphenhydramine HCl (Benadryl) 25 mg 1X ONCE 05/10/19 19:45 05/10/19 19:46 DC 05/10/19 20:05 25 MG Ketorolac Tromethamine (Toradol 15mg Vial) 15 mg 1X ONCE 05/10/19 19:45 05/10/19 19:46 DC 05/10/19 20:06 15 MG Magnesium Sulfate/ Dextrose 100 ml @ 100 mls/hr 1X ONCE 05/10/19 20:30 05/10/19 21:29 DC 05/10/19 20:05 100 MLS/HR Prochlorperazine Edisylate (Compazine) 10 mg 1X ONCE 05/10/19 19:45 05/10/19 19:46 DC 05/10/19 20:06 10 MG Allergies Allergies Allergies Coded Allergies Type Severity Reaction Last Updated Verified No Known Drug Allergies 09/19/18 No Physical Exam Physical Exam Constitutional: Well developed, well nourished, no acute distress, non-toxic appearance. HENT: Normocephalic, atraumatic, bilateral external ears normal, oropharynx moist, no oral exudates, nose normal. Eyes: PERRLA, EOMI, conjunctiva normal, no discharge. Neck: Normal range of motion, no tenderness, supple, no stridor. Cardiovascular:Heart rate regular rhythm, no murmur Lungs & Thorax: Bilateral breath sounds clear to auscultation Abdomen: Bowel sounds normal, soft, no tenderness, no masses, no pulsatile masses. Skin: Warm, dry, no erythema, no rash. Back: no CVA tenderness. [Paraspinal muscle tenderness, no tenderness on palpation of the spinous processes] Extremities: No tenderness, no cyanosis, no clubbing, ROM intact, no edema. [Slight pitting edema of the right lower extremity +1/4, no erythema or lesions present. left lower extremity in boot Neurologic: Alert and oriented X 3, normal motor function, normal sensory function, no focal deficits noted. Psychologic: Affect normal, judgement normal, mood normal. Current Patient Data Vital Signs Vital Signs Date Time Temp Pulse Resp B/P (MAP) Pulse Ox O2 Delivery O2 Flow Rate FiO2 05/10/19 18:38 98.0 88 20 129/83 (98) 100 Room Air 98.0 Lab Values Laboratory Tests Test 05/10/19 20:30 White Blood Count 5.1 x10^3/uL (4.0-11.0) Red Blood Count 4.10 x10^6/uL (3.50-5.40) Hemoglobin 11.1 g/dL (12.0-15.5) L Hematocrit 34.4 % (36.0-47.0) L Mean Corpuscular Volume 84 fL (79-100) Mean Corpuscular Hemoglobin 27 pg (25-35) Mean Corpuscular Hemoglobin Concent 32 g/dL (31-37) Red Cell Distribution Width 15.0 % (11.5-14.5) H Platelet Count 317 x10^3/uL (140-400) Neutrophils (%) (Auto) 66 % (31-73) Lymphocytes (%) (Auto) 23 % (24-48) L Monocytes (%) (Auto) 8 % (0-9) Eosinophils (%) (Auto) 2 % (0-3) Basophils (%) (Auto) 1 % (0-3) Neutrophils # (Auto) 3.3 x10^3/uL (1.8-7.7) Lymphocytes # (Auto) 1.2 x10^3/uL (1.0-4.8) Monocytes # (Auto) 0.4 x10^3/uL (0.0-1.1) Eosinophils # (Auto) 0.1 x10^3/uL (0.0-0.7) Basophils # (Auto) 0.1 x10^3/uL (0.0-0.2) Sodium Level 142 mmol/L (136-145) Potassium Level 3.7 mmol/L (3.5-5.1) Chloride Level 103 mmol/L (98-107) Carbon Dioxide Level 28 mmol/L (21-32) Anion Gap 11 (6-14) Blood Urea Nitrogen 7 mg/dL (7-20) Creatinine 0.9 mg/dL (0.6-1.0) Estimated GFR (Cockcroft-Gault) 80.2 BUN/Creatinine Ratio 8 (6-20) Glucose Level 97 mg/dL (70-99) Calcium Level 9.2 mg/dL (8.5-10.1) Total Bilirubin 0.3 mg/dL (0.2-1.0) Aspartate Amino Transferase (AST) 26 U/L (15-37) Alanine Aminotransferase (ALT) 40 U/L (14-59) Alkaline Phosphatase 96 U/L (46-116) Troponin I Quantitative < 0.017 ng/mL (0.000-0.055) Total Protein 7.3 g/dL (6.4-8.2) Albumin 4.0 g/dL (3.4-5.0) Albumin/Globulin Ratio 1.2 (1.0-1.7) Laboratory Tests 05/10/19 20:30 Laboratory Tests 05/10/19 20:30 EKG EKG [EKG reading that prompted urgent care to send pt to the ED showed t wave abnormalities in the anterior and inferior leads. Pt had a previous EKG done at [facility] on 12/09/2018 - when this was compared to EKG obtained today (), t-wave abnormalities in inferior lead AVF and anterior leads V2-V4 are similar.] Radiology/Procedures Radiology/Procedures [] Impressions: CXR NEG MY READ Course & Med Decision Making Course & Med Decision Making Pertinent Labs and Imaging studies reviewed. (See chart for details) [48 yo F pt presents with right lower extremity swelling and headache. Swelling is a known complaint that she was seen here at [facility] a few weeks prior and pt states that the pain and swelling have come down. At the previous visit ultrasound was performed and showed no DVT. She has a history of migraine headaches and reports her current headache is similar to her migraines. Her EKG was similar today compared to an EKG performed on 12/09/2018. The EKG's being similar is reassuring and gives less suspicion to an acute cardiac cause for her leg swelling and abnormal EKG. Toradol, benadryl, and zofran migraine cocktail were given to the pt to help treat headache symptoms. ] labs checked pt reassured FELT BETTER AFTER MIGRAINE TREATMENT. cxr neg acute my read Dragon Disclaimer Dragon Disclaimer This electronic medical record was generated, in whole or in part, using a voice recognition dictation system. Departure Departure Impression: Primary Impression: Migraine Disposition: 01 HOME, SELF-CARE Condition: STABLE Referrals: JESICA HEIN MD (PCP) MARGE RUIZ MD May 10, 2019 19:35
[2019-05-10] MEDS ORDERED: DEXAMETHASONE SOD PHOS 20 MG/5 ML VIAL. IV ONE (19:45)
[2019-05-10] MEDS ORDERED: KETOROLAC 15 MG/ML VIAL. IV ONE (19:45)
[2019-05-10] MEDS ORDERED: PROCHLORPERAZINE 10 MG/2 ML VIAL. IV ONE (19:45)
[2019-05-10] MEDS ORDERED: diphenhydrAMINE 50 MG/ML VIAL IVP ONE (19:45)
[2019-05-10] MEDS ORDERED: MAGNESIUM SULFATE 1GM 100 ML IV ONE (20:30)
[2019-05-10 20:44] LABS: BASO # 0.1 x10^3/uL (0.0-0.2); BASO % 1 % (0-3); EOS # 0.1 x10^3/uL (0.0-0.7); EOS % 2 % (0-3); HEMATOCRIT 34.4 % (36.0-47.0); HEMOGLOBIN 11.1 g/dL (12.0-15.5); LYMPH # 1.2 x10^3/uL (1.0-4.8); LYMPH % 23 % (24-48); MEAN CORPUSCULAR HEMOGLOBIN 27 pg (25-35); MEAN CORPUSCULAR HGB CONC 32 g/dL (31-37); MEAN CORPUSCULAR VOLUME 84 fL (79-100); MONO # 0.4 x10^3/uL (0.0-1.1); MONO % 8 % (0-9); NEUT # 3.3 x10^3/uL (1.8-7.7); NEUT % 66 % (31-73); PLATELET COUNT 317 x10^3/uL (140-400); WHITE BLOOD COUNT 5.1 x10^3/uL (4.0-11.0)
[2019-05-10 21:06] LABS: CALCIUM 9.2 mg/dL (8.5-10.1); CREATININE 0.9 mg/dL (0.6-1.0); GFR 80.2; POTASSIUM 3.7 mmol/L (3.5-5.1)
[2019-05-10 21:13] LABS: ALBUMIN/GLOBULIN RATIO 1.2 (1.0-1.7); TOTAL BILIRUBIN 0.3 mg/dL (0.2-1.0); TOTAL PROTEIN 7.3 g/dL (6.4-8.2)
[2019-05-10 21:45] VITALS: BP 134/84
--- NOTE | 2019-05-11 04:04 | RAD ---
AP portable chest radiograph 05/10/2019 Clinical History: Weakness. An AP erect portable digital radiograph of the chest was obtained. Comparison study is dated 12/09/2018. The cardiac silhouette is normal in size. The thoracic aorta is mildly tortuous. No acute pulmonary infiltrate is seen. No pleural effusion or pneumothorax is noted. The osseous structures are grossly intact. Impression: No acute abnormality is seen. Electronically signed by: Giuliano Ceja MD (05/11/2019 4:02 AM) [facility]
--- NOTE | 2019-05-11 13:44 | EKG ---
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
== END 2019-05-10 22:00 | disposition home or self-care (01) ==
LOC: ER 18:15
DX: G43.909 Migraine, unspecified, not intractable, without status migrainosus (principal); I10 Essential (primary) hypertension; K21.9 Gastro-esophageal reflux disease without esophagitis; G89.29 Other chronic pain
CPT/HCPCS: 36415; 71045; 80053; 84484; 85025; 93005; 96365; 96375; 99285; J0780; J1100; J1200; J1885; J3475

== ENCOUNTER 2019-06-09 12:01 | Emergency (ER) | payer OTHER ==
[~2019-06-09] VITALS: Ht 165.1 cm; Wt 90.7 kg
[2019-06-09] MEDS ORDERED: KETOROLAC 60 MG/2 ML VIAL. IM ONE (12:30)
[2019-06-09 12:50] VITALS: BP 132/84
--- NOTE | 2019-06-09 13:15 | RAD ---
Exam:Left ribs with PA chest Date: 06/09/2019 12:25 PM Comparison: No prior Indication: Fall, left lateral rib pain, injury Findings/ Impression: The heart is not enlarged. Mediastinal and hilar contours are normal. Nodular and patchy opacity of the left lung base is new compared to 05/10/2019, suspect focal atelectasis. No pleural effusion or pneumothorax. AP, and oblique images of the left ribs are negative for acute displaced rib fracture. Negative focal pleural elevation. Symmetrical intercostal spacing. It is of note that an acute non-displaced rib fracture can be in-apparent on initial post-trauma imaging. Electronically signed by: Nash Serna MD (06/09/2019 1:13 PM) [facility]
[2019-06-09] MEDS ORDERED: NAPR-683 PO (13:39)
[2019-06-09] MEDS ORDERED: ORPH100T PO (13:39)
--- NOTE | 2019-06-09 13:40 | PHYS DOC ---
Past Medical History Past Medical History: GERD, Hypertension, Migraines Additional Past Medical Histor: MVP,CHRONIC PAIN Past Surgical History: Hysterectomy Additional Past Surgical Histo: Back surgery Alcohol Use: None Drug Use: None Adult General Chief Complaint Chief Complaint: BACK PAIN OR INJURY HPI HPI Patient is a 48 year old female who presents with complaining of back pain. Patient states she has had chronic back pain and has a scheduled surgery. Patient states she had an accidental fall from a standing position 5 days ago and hit the left of her back and chest wall against the stool and since then has had pain that getting force with movement. Patient denies shortness of breath, fever and chills, nausea and vomiting. Patient states she took [id number] medication without improvement of her pain and rated her pain 10 over 10. Review of Systems Review of Systems Constitutional: Denies fever or chills [] Eyes: Denies change in visual acuity, redness, or eye pain [] HENT: Denies nasal congestion or sore throat [] Respiratory: Denies cough or shortness of breath [] Cardiovascular: No additional information not addressed in HPI [] GI: Denies abdominal pain, nausea, vomiting, bloody stools or diarrhea [] : Denies dysuria or hematuria [] Musculoskeletal: Reports back pain Integument: Denies rash or skin lesions [] Neurologic: Denies headache, focal weakness or sensory changes [] Endocrine: Denies polyuria or polydipsia [] All other systems were reviewed and found to be within normal limits, except as documented in this note. Current Medications Current Medications Current Medications Medications (Trade) Dose Ordered Sig/[facility] Start Time Stop Time Status Last Admin Dose Admin Ketorolac Tromethamine (Toradol Im) 60 mg 1X ONCE 06/09/19 12:30 06/09/19 12:32 DC 06/09/19 12:39 60 MG Allergies Allergies Allergies Coded Allergies Type Severity Reaction Last Updated Verified No Known Drug Allergies 09/19/18 No Physical Exam Physical Exam Constitutional: Well developed, well nourished, mild distress, non-toxic appearance. [] HENT: Normocephalic, atraumatic. Eyes: PERRLA, EOMI, conjunctiva normal, no discharge. [] Neck: Normal range of motion, no tenderness, supple, no stridor. [] Cardiovascular:Heart rate regular rhythm, no murmur [] Lungs & Thorax: Bilateral breath sounds clear to auscultation , left lower chest wall and drapes tenderness without emphysema or crepitation[] Abdomen: Bowel sounds normal, soft, no tenderness, no masses, no pulsatile masses. [] Skin: Warm, dry, no erythema, no rash. [] Back: No midline tenderness, no CVA tenderness. [] Extremities: No tenderness, no cyanosis, no clubbing, ROM intact, no edema. [] Neurologic: Alert and oriented X 3, no focal deficits noted. [] Psychologic: Affect normal, judgement normal, mood normal. [] Current Patient Data Vital Signs Vital Signs Date Time Temp Pulse Resp B/P (MAP) Pulse Ox O2 Delivery O2 Flow Rate FiO2 06/09/19 12:50 98.5 98 15 132/84 (100) 99 Room Air 98.5 EKG EKG [] Radiology/Procedures Radiology/Procedures [][facility] [address] [place] [address] IMAGING REPORT Signed PATIENT: SHARRON HENSON ACCOUNT: [id number] : 1970 LOCATION: ER AGE: 48 SEX: F EXAM STATUS: REG ER ORD. PHYSICIAN: TIFFANY RUBIN MD REASON: fall x4 days agoinjury to left lateral ribs PROCEDURE: RIBS LEFT AND PA CHEST Exam:Left ribs with PA chest Date: 06/09/2019 12:25 PM Comparison: No prior Indication: Fall, left lateral rib pain, injury Findings/ Impression: The heart is not enlarged. Mediastinal and hilar contours are normal. Nodular and patchy opacity of the left lung base is new compared to 05/10/2019, suspect focal atelectasis. No pleural effusion or pneumothorax. AP, and oblique images of the left ribs are negative for acute displaced rib fracture. Negative focal pleural elevation. Symmetrical intercostal spacing. It is of note that an acute non-displaced rib fracture can be in-apparent on initial post-trauma imaging. Electronically signed by: Nash Velazquez MD (06/09/2019 1:13 PM) [facility] DICTATED and SIGNED BY: NASH VELAZQUEZ MD DATE: 06/09/19 1313 Course & Med Decision Making Course & Med Decision Making Pertinent Imaging studies reviewed. (See chart for details) Evaluation of patient in ER showed 48-year-old female patient with injury to left lower chest several days ago with unremarkable chest and rib x-ray. Plan discharge patient home with diagnose of chest wall contusion. Dragon Disclaimer Dragon Disclaimer This electronic medical record was generated, in whole or in part, using a voice recognition dictation system. Departure Departure Impression: Primary Impression: Contusion of rib on left side Disposition: HOME, SELF-CARE (at 1336) Condition: IMPROVED Referrals: JESICA HEIN MD (PCP) Patient Instructions: Rib Contusion Additional Instructions: Drink plenty of liquids Follow-up with your primary care physician in 3-5 days Return to ER if not getting better Apply ice on the affected area Continue home oxycodone Scripts Naproxen (NAPROSYN) 500 Mg Tablet 1 TAB PO BID for pain, #20 TAB Prov: TIFFANY RUBIN MD 06/09/19 Orphenadrine Citrate (ORPHENADRINE CITRATE) 100 Mg Tablet.er 1 TAB PO BID, #20 TAB Prov: TIFFANY RUBIN MD 06/09/19 Problem Qualifiers Primary Impression: Contusion of rib on left side Encounter type: initial encounter Qualified Codes: S20.212A - Contusion of left front wall of thorax, initial encounter TIFFANY RUBIN MD Jun 09, 2019 13:40
== END 2019-06-09 13:45 | disposition home or self-care (01) ==
LOC: ER 12:01
DX: S20.212A Contusion of left front wall of thorax, initial encounter (principal); M54.9 Dorsalgia, unspecified; G89.29 Other chronic pain; K21.9 Gastro-esophageal reflux disease without esophagitis; I10 Essential (primary) hypertension; G43.909 Migraine, unspecified, not intractable, without status migrainosus; Z90.710 Acquired absence of both cervix and uterus; W18.39XA Other fall on same level, initial encounter; Y93.89 Activity, other specified; Y92.89 Other specified places as the place of occurrence of the external cause; Y99.8 Other external cause status
CPT/HCPCS: 71101; 96372; 99284; J1885; 99283

== ENCOUNTER 2020-03-22 18:22 | Inpatient (IN) | payer OTHER ==
[~2020-03-22] VITALS: Ht 162.6 cm; Wt 96.6 kg
[~2020-03-22 18:22] MED LIST changes: +NAPR-683 PO; -OMEP20CA10 PO; +OMEP20CA16 PO; +ORPH100T PO
[2020-03-22] MEDS ORDERED: levETIRAcetam 1,000 MG in IV DEXTROSE 5% 100ML 100 ML IV ONE (18:30)
[2020-03-22] MEDS ORDERED: IV NORMAL SALINE 1000ML BAG 1,000 ML IV SCH (18:38)
--- NOTE | 2020-03-22 18:53 | PHYS DOC ---
Past Medical History Past Medical History: Asthma, GERD, Hypertension, Migraines Additional Past Medical Histor: MVP,CHRONIC PAIN Past Surgical History: Hysterectomy Additional Past Surgical Histo: Back surgery Smoking Status: Never Smoker Alcohol Use: None Drug Use: None General Adult EDM: Chief Complaint: RAPID HEART RATE HPI: HPI: Patient is a 49 year old female who presents with complaint of palpitations that have been intermittent over the last few weeks. Patient states that currently palpitations have been going on for last day. She states that it feels like her heart is pounding out of her chest. She denies any actual chest pain or shortness of breath however. She denies cough or fever. She does admit to mild nagging headache. [] Review of Systems: Review of Systems: Constitutional: Denies fever or chills. [] Respiratory: Denies cough or shortness of breath. [] Cardiovascular: Denies chest pain or edema. Complains of palpitations. [] GI: Denies abdominal pain, nausea, vomiting, bloody stools or diarrhea. [] Neurologic: Complains of headache without focal weakness or sensory changes. [] A full 10 point review of systems has been reviewed and is otherwise negative. Heart Score: Risk Factors: Risk Factors: DM, Current or recent (<one month) smoker, HTN, HLP, family history of CAD, obesity. Risk Scores: Score 0 - 3: 2.5% MACE over next 6 weeks - Discharge Home Score 4 - 6: 20.3% MACE over next 6 weeks - Admit for Clinical Observation Score 7 - 10: 72.7% MACE over next 6 weeks - Early Invasive Strategies Current Medications: Current Medications Medications (Trade) Dose Ordered Sig/Bree Start Time Stop Time Status Last Admin Dose Admin Diltiazem HCl (Cardizem Iv Push) 10 mg 1X ONCE 03/22/20 19:15 03/22/20 19:16 Levetiracetam 1000 mg/Dextrose 110 ml @ 440 mls/hr 1X ONCE 03/22/20 18:30 03/22/20 18:44 UNV Sodium Chloride 1,000 ml @ 1,000 mls/hr Q1H 03/22/20 18:38 03/22/20 19:37 Allergies: Allergies: Allergies Coded Allergies Type Severity Reaction Last Updated Verified No Known Drug Allergies 09/19/18 No Physical Exam: PE: Constitutional: Well developed, well nourished, no acute distress, non-toxic appearance. [] HENT: Normocephalic, atraumatic, bilateral external ears normal, oropharynx moist, no oral exudates, nose normal. [] Eyes: PERRLA, EOMI, conjunctiva normal, no discharge. [] Neck: Normal range of motion, no tenderness, supple, no stridor. [] Cardiovascular: Tachycardic rate with regular rhythm [] Lungs & Thorax: Bilateral breath sounds clear to auscultation [] Abdomen: Bowel sounds normal, soft, no tenderness. [] Skin: Warm, dry, no erythema, no rash. [] Extremities: No tenderness, no cyanosis, no clubbing, ROM intact, no edema. [] Neurologic: Alert and oriented X 3, no focal deficits noted. [] Current Patient Data: Vital Signs: Vital Signs Date Time Temp Pulse Resp B/P (MAP) Pulse Ox O2 Delivery O2 Flow Rate FiO2 03/22/20 18:37 100.4 135 22 136/80 (98) 98 Room Air 100.4 EKG: EKG: [] EKG demonstrates sinus tachycardia with a rate of 124. Radiology/Procedures: Radiology/Procedures: [] Impression: PROCEDURE: PORTABLE CHEST 1V Examination: PORTABLE CHEST 1V History: Reason: palpitations / Spl. Instructions: / History: Comparison/Correlation: None Findings: Frontal view chest was obtained. Heart size and pulmonary vessels are normal. No infiltrate or pleural effusion. Postoperative findings of the cervical spine evident. Bony structures are otherwise intact. Impression: No active disease. Electronically signed by: Lebron Walker MD (03/22/2020 7:59 PM) [id number] Course & Med Decision Making: Course & Med Decision Making Pertinent Labs and Imaging studies reviewed. (See chart for details) [] Dragon Disclaimer: Dragon Disclaimer: This electronic medical record was generated, in whole or in part, using a voice recognition dictation system. Departure Departure Impression: Primary Impression: Palpitations Additional Impression: Abnormal heart rhythm Qualified Codes: I49.9 - Cardiac arrhythmia, unspecified Disposition: ADMITTED INPATIENT Admitting Physician: CRISS Condition: IMPROVED Referrals: JESICA HEIN MD (PCP) JENNIE HILL Jr. DO March 22, 2020 18:53
[2020-03-22 19:12] LABS: BASO # 0.1 x10^3/uL (0.0-0.2); BASO % 1 % (0-3); EOS # 0.2 x10^3/uL (0.0-0.7); EOS % 3 % (0-3); HEMATOCRIT 40.6 % (36.0-47.0); HEMOGLOBIN 13.1 g/dL (12.0-15.5); LYMPH % 32 % (24-48); MEAN CORPUSCULAR HEMOGLOBIN 26 pg (25-35); MEAN CORPUSCULAR HGB CONC 32 g/dL (31-37); MEAN CORPUSCULAR VOLUME 81 fL (79-100); MONO # 0.4 x10^3/uL (0.0-1.1); MONO % 6 % (0-9); NEUT # 3.6 x10^3/uL (1.8-7.7); NEUT % 58 % (31-73); PLATELET COUNT 306 x10^3/uL (140-400); RED BLOOD COUNT 5.02 x10^6/uL (3.50-5.40); RED CELL DISTRIBUTION WIDTH 17.3 % (11.5-14.5); WHITE BLOOD COUNT 6.2 x10^3/uL (4.0-11.0)
[2020-03-22] MEDS ORDERED: dilTIAZem IV PUSH 25 MG/5 ML VIAL IVP ONE (19:15)
[2020-03-22 19:25] LABS: ALBUMIN 3.9 g/dL (3.4-5.0); CALCIUM 9.1 mg/dL (8.5-10.1); CREATININE 1.4 mg/dL (0.6-1.0); MAGNESIUM 1.9 mg/dL (1.8-2.4); TOTAL BILIRUBIN 0.2 mg/dL (0.2-1.0); TOTAL PROTEIN 7.7 g/dL (6.4-8.2)
[2020-03-22 19:27] LABS: POTASSIUM 2.9 mmol/L (3.5-5.1)
[2020-03-22] MEDS ORDERED: METOPROLOL TARTRATE 5 MG/5 ML VIAL. IVP ONE (20:00)
[2020-03-22] MEDS ORDERED: POTASSIUM CHLORIDE 20 MEQ TABLET.ER. PO ONE (20:00)
--- NOTE | 2020-03-22 20:02 | RAD ---
Examination: PORTABLE CHEST 1V History: Reason: palpitations / Spl. Instructions: / History: Comparison/Correlation: None Findings: Frontal view chest was obtained. Heart size and pulmonary vessels are normal. No infiltrate or pleural effusion. Postoperative findings of the cervical spine evident. Bony structures are otherwise intact. Impression: No active disease. Electronically signed by: Lebron Walker MD (03/22/2020 7:59 PM) [id number]
[2020-03-22] MEDS ORDERED: ONDANSETRON PF 4 MG/2 ML VIAL. IV PRN (22:45)
[2020-03-22] MEDS ORDERED: MORPHINE SULFATE 2 MG/ML VIAL. IV PRN (22:45)
[2020-03-22] MEDS ORDERED: diazePAM 5 MG TABLET ONE (23:29)
[2020-03-22] MEDS ORDERED: diazePAM 5 MG TABLET PO ONE (23:30)
[2020-03-23] VITALS (7 sets, daily range): BP systolic 96–120; BP diastolic 54–75
--- NOTE | 2020-03-23 00:30 | NUR ---
A 49 Y.O. FEMALE ADMITTED TO ROOM 250, A/OX4, DENIES C/O AT THIS TIME. ADMISSION PACKET GIVEN, ORIENTED TO UNIT, EXPLAINED POC, PT VERBALIZED UNDERSTANDING. ASSESSMENT/ADMISSION COMPLETE. CALL LIGHT IN PLACE. WILL CONT TO MONITOR PT STATUS AND SAFETY. PMRN
[2020-03-23] MEDS ORDERED: GABA300C18 PO (01:14)
[2020-03-23] MEDS ORDERED: TOPI50TA38 PO (01:14)
[2020-03-23] MEDS ORDERED: DIAZ5TAB PO (01:14)
[2020-03-23] MEDS ORDERED: TOPIRAMATE 25 MG TABLET. PO ONE (01:30)
[2020-03-23] MEDS ORDERED: buPROPion SR 100 MG TABLET.SA. PO ONE (01:30)
[2020-03-23] MEDS ORDERED: GABAPENTIN 300 MG CAPSULE. PO ONE (01:30)
[2020-03-23] MEDS ORDERED: VENLAFAXINE 75 MG TABLET. PO ONE (01:30)
[2020-03-23 05:25] LABS: CHOLESTEROL/HDL RATIO 3.2
--- NOTE | 2020-03-23 07:17 | EKG ---
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
--- NOTE | 2020-03-23 07:17 | EKG ---
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
--- NOTE | 2020-03-23 10:29 | PDOC1 ---
History and Physical Date of Admission Date of Admission DATE: 03/23/20 TIME: 10:28 Identification/Chief Complaint Chief Complaint SEEN IN ER WITH SVT 49 year old female who presented with complaint of palpitations that have been intermittent over the last few weeks. palpitations have been going on for last day. //feels like her heart is pounding out of her chest. denies any actual chest pain or shortness of breath however. denies cough or fever. She does admit to mild nagging headache. Past Medical History Past Medical History Past Medical History Past Medical History: Asthma, GERD, Hypertension, Migraines Additional Past Medical Histor: MVP,CHRONIC PAIN Past Surgical History: Hysterectomy Additional Past Surgical Histo: Back surgery Smoking Status: Never Smoker Alcohol Use: None Drug Use: None fhx HTN PAST MEDICAL HISTORY: Depression, GERD, hypertension, mitral valve prolapse, chronic pain, asthma, hysterectomy, appendectomy, neck and back fusion. ALLERGIES: None. FAMILY HISTORY: Coronary artery disease. SOCIAL HISTORY: She does not drink, smoke or take drugs. Cardiovascular: HTN Pulmonary: No pertinent hx GI: No pertinent hx Heme/Onc: No pertinent hx Psych: Depression Musculoskeletal: low back pain Rheumatologic: No pertinent hx Infectious disease: No pertinent hx Renal/: No pertinent hx Endocrine: No pertinent hx Past Surgical History Past Surgical History: Hysterectomy, Other Family History Family History: No Significant, Hypertension Social History Smoke: No ALCOHOL: none Drugs: None Current Problem List Problem List Problems Medical Problems: (1) Abnormal heart rhythm Status: Acute (2) Palpitations Status: Acute Current Medications Current Medications Current Medications Levetiracetam 1000 mg/Dextrose 110 ml @ 440 mls/hr 1X ONCE IV ; Start 03/22/20 at 18:30; Stop 03/22/20 at 18:44; Status UNV Sodium Chloride 1,000 ml @ 1,000 mls/hr Q1H IV Last administered on 03/22/20at 19:13; Start 03/22/20 at 18:38; Stop 03/22/20 at 19:37; Status DC Diltiazem HCl (Cardizem Iv Push) 10 mg 1X ONCE IVP Last administered on 03/22/20at 19:11; Start 03/22/20 at 19:15; Stop 03/22/20 at 19:16; Status DC Metoprolol Tartrate (Lopressor Vial) 5 mg 1X ONCE IVP Last administered on 03/22/20at 19:52; Start 03/22/20 at 20:00; Stop 03/22/20 at 20:01; Status DC Potassium Chloride (Klor-Con) 40 meq 1X ONCE PO Last administered on 03/22/20at 19:52; Start 03/22/20 at 20:00; Stop 03/22/20 at 20:01; Status DC Ondansetron HCl (Zofran) 4 mg PRN Q8HRS PRN IV NAUSEA/VOMITING; Start 03/22/20 at 22:45; Stop 03/23/20 at 22:44 Morphine Sulfate (Morphine Sulfate) 2 mg PRN Q2HR PRN IV PAIN; Start 03/22/20 at 22:45; Stop 03/23/20 at 22:44 Diazepam (Valium) 5 mg 1X ONCE PO Last administered on 03/22/20at 23:32; Start 03/22/20 at 23:30; Stop 03/22/20 at 23:31; Status DC Diazepam (Valium) 5 mg STK-MED ONCE .ROUTE ; Start 03/22/20 at 23:29; Stop 03/22/20 at 23:29; Status DC Docusate Sodium (Colace) 100 mg BID PO ; Start 03/23/20 at 09:00 Oxycodone/ Acetaminophen (Percocet 5/325) 1 tab PRN Q4HRS PRN PO SEVERE PAIN 7- 10; Start 03/23/20 at 01:15 Bupropion HCl (Wellbutrin Sr) 200 mg BID PO ; Start 03/23/20 at 09:00 Pantoprazole Sodium (Protonix) 40 mg DAILYAC PO ; Start 03/23/20 at 07:30 Venlafaxine HCl (Effexor) 150 mg BID PO ; Start 03/23/20 at 09:00 Topiramate (Topamax) 50 mg 1X ONCE PO Last administered on 03/23/20at 01:37; Start 03/23/20 at 01:30; Stop 03/23/20 at 01:31; Status DC Bupropion HCl (Wellbutrin Sr) 200 mg 1X ONCE PO Last administered on 03/23/20at 01:37; Start 03/23/20 at 01:30; Stop 03/23/20 at 01:31; Status DC Venlafaxine HCl (Effexor) 150 mg 1X ONCE PO Last administered on 03/23/20at 01:36; Start 03/23/20 at 01:30; Stop 03/23/20 at 01:31; Status DC Gabapentin (Neurontin) 300 mg 1X ONCE PO Last administered on 03/23/20at 01:36; Start 03/23/20 at 01:30; Stop 03/23/20 at 01:31; Status DC Diazepam (Valium) 5 mg HS PO ; Start 03/23/20 at 21:00 Active Scripts Active Colace (Docusate Sodium) 100 Mg Capsule 100 Mg PO BID 14 Days Percocet 5-325 Mg Tablet (Oxycodone/Acetaminophen) 1 Each Tablet 1 Tab PO PRN Q4HRS PRN 7 Days Reported Topamax (Topiramate) 50 Mg Tablet 50 Mg PO BID Valium (Diazepam) 5 Mg Tablet 5 Mg PO HS MDD s Gabapentin 300 Mg Capsule 300 Mg PO BID Bupropion Hcl Sr (Bupropion Hcl) 200 Mg Tablet.er 200 Mg PO BID Venlafaxine Hcl Er (Venlafaxine Hcl) 150 Mg Cap.er.24h 150 Mg PO BID Omeprazole 20 Mg Capsule.dr 20 Mg PO DAILY Allergies Allergies: Coded Allergies: No Known Drug Allergies (Unverified , 09/19/18) ROS Review of System Constitutional: Denies fever or chills. [] Respiratory: Denies cough or shortness of breath. [] Cardiovascular: Denies chest pain or edema. Complains of palpitations. [] GI: Denies abdominal pain, nausea, vomiting, bloody stools or diarrhea. [] Neurologic: Complains of headache without focal weakness or sensory changes. [] 14 point review of systems has been reviewed and is otherwise negative. ALLERGY AND IMMUNOLOGY: No: Hives, Insect Bite Sensitivity, Itchy/Watery Eyes, Nasal Congestion, Post Nasal Drip, Seasonal Allergies, Other Hematological and Lymphatic: No: Bleeding Problems, Blood Clots, Blood Transfusions, Brusing, Night Sweats, Pallor, Swollen Lymph Nodes, Other Cardiovascular: yes Palpitations Gastrointestinal: No Nausea, No Vomiting, No Abdominal Pain, No Diarrhea, No Constipation, No Melena, No Hematochezia, No Other Skin: No Dry Skin, No Eczema, No Hair Changes, No Lumps, No Mole Changes, No Mottling, No Nail Changes, No Pruritus, No Rash, No Skin Lesion Changes, No Other, No Acne Physical Exam Physical Exam Constitutional: Well developed, well nourished, no acute distress, non-toxic appearance. [] HENT: Normocephalic, atraumatic, bilateral external ears normal, oropharynx moist, no oral exudates, nose normal. [] Eyes: PERRLA, EOMI, conjunctiva normal, no discharge. [] Neck: Normal range of motion, no tenderness, supple, no stridor. [] Cardiovascular: Tachycardic rate with regular rhythm [] Lungs & Thorax: Bilateral breath sounds clear to auscultation [] Abdomen: Bowel sounds normal, soft, no tenderness. [] Skin: Warm, dry, no erythema, no rash. [] Extremities: No tenderness, no cyanosis, no clubbing, ROM intact, no edema. [] Neurologic: Alert and oriented X 3, no focal deficits noted. [] General: Alert, Oriented X3, Cooperative HEENT: Atraumatic Heart: no murmurs Breasts: Not examined Abdomen: Normal bowel sounds, Soft Rectal Exam: not examined Extremities: No cyanosis Neuro: Normal speech, Cranial nerves 3-12 NL Psych/Mental Status: Mental status NL, Mood NL Vitals Vitals Vital Signs Date Time Temp Pulse Resp B/P (MAP) Pulse Ox O2 Delivery O2 Flow Rate FiO2 03/23/20 07:00 98.4 72 18 107/66 (80) 98 Room Air 98.4 Labs Labs Laboratory Tests Test 03/22/20 19:00 03/23/20 01:25 03/23/20 04:27 White Blood Count 6.2 x10^3/uL (4.0-11.0) Red Blood Count 5.02 x10^6/uL (3.50-5.40) Hemoglobin 13.1 g/dL (12.0-15.5) Hematocrit 40.6 % (36.0-47.0) Mean Corpuscular Volume 81 fL (79-100) Mean Corpuscular Hemoglobin 26 pg (25-35) Mean Corpuscular Hemoglobin Concent 32 g/dL (31-37) Red Cell Distribution Width 17.3 % (11.5-14.5) Platelet Count 306 x10^3/uL (140-400) Neutrophils (%) (Auto) 58 % (31-73) Lymphocytes (%) (Auto) 32 % (24-48) Monocytes (%) (Auto) 6 % (0-9) Eosinophils (%) (Auto) 3 % (0-3) Basophils (%) (Auto) 1 % (0-3) Neutrophils # (Auto) 3.6 x10^3/uL (1.8-7.7) Lymphocytes # (Auto) 2.0 x10^3/uL (1.0-4.8) Monocytes # (Auto) 0.4 x10^3/uL (0.0-1.1) Eosinophils # (Auto) 0.2 x10^3/uL (0.0-0.7) Basophils # (Auto) 0.1 x10^3/uL (0.0-0.2) Sodium Level 142 mmol/L (136-145) Potassium Level 2.9 mmol/L (3.5-5.1) Chloride Level 104 mmol/L (98-107) Carbon Dioxide Level 27 mmol/L (21-32) Anion Gap 11 (6-14) Blood Urea Nitrogen 9 mg/dL (7-20) Creatinine 1.4 mg/dL (0.6-1.0) Estimated GFR (Cockcroft-Gault) 48.0 BUN/Creatinine Ratio 6 (6-20) Glucose Level 130 mg/dL (70-99) Calcium Level 9.1 mg/dL (8.5-10.1) Magnesium Level 1.9 mg/dL (1.8-2.4) Total Bilirubin 0.2 mg/dL (0.2-1.0) Aspartate Amino Transf (AST/SGOT) 17 U/L (15-37) Alanine Aminotransferase (ALT/SGPT) 31 U/L (14-59) Alkaline Phosphatase 114 U/L (46-116) Troponin I Quantitative < 0.017 ng/mL (0.000-0.055) < 0.017 ng/mL (0.000-0.055) < 0.017 ng/mL (0.000-0.055) Total Protein 7.7 g/dL (6.4-8.2) Albumin 3.9 g/dL (3.4-5.0) Albumin/Globulin Ratio 1.0 (1.0-1.7) Thyroid Stimulating Hormone (TSH) 3.865 uIU/mL (0.358-3.74) Triglycerides Level 74 mg/dL (0-150) Cholesterol Level 206 mg/dL (0-200) LDL Cholesterol, Calculated 126 mg/dL (0-100) VLDL Cholesterol, Calculated 15 mg/dL (0-40) Non-HDL Cholesterol Calculated 141 mg/dL (0-129) HDL Cholesterol 65 mg/dL (40-60) Cholesterol/HDL Ratio 3.2 Laboratory Tests Test 03/22/20 19:00 03/23/20 01:25 03/23/20 04:27 White Blood Count 6.2 x10^3/uL (4.0-11.0) Red Blood Count 5.02 x10^6/uL (3.50-5.40) Hemoglobin 13.1 g/dL (12.0-15.5) Hematocrit 40.6 % (36.0-47.0) Mean Corpuscular Volume 81 fL (79-100) Mean Corpuscular Hemoglobin 26 pg (25-35) Mean Corpuscular Hemoglobin Concent 32 g/dL (31-37) Red Cell Distribution Width 17.3 % (11.5-14.5) Platelet Count 306 x10^3/uL (140-400) Neutrophils (%) (Auto) 58 % (31-73) Lymphocytes (%) (Auto) 32 % (24-48) Monocytes (%) (Auto) 6 % (0-9) Eosinophils (%) (Auto) 3 % (0-3) Basophils (%) (Auto) 1 % (0-3) Neutrophils # (Auto) 3.6 x10^3/uL (1.8-7.7) Lymphocytes # (Auto) 2.0 x10^3/uL (1.0-4.8) Monocytes # (Auto) 0.4 x10^3/uL (0.0-1.1) Eosinophils # (Auto) 0.2 x10^3/uL (0.0-0.7) Basophils # (Auto) 0.1 x10^3/uL (0.0-0.2) Sodium Level 142 mmol/L (136-145) Potassium Level 2.9 mmol/L (3.5-5.1) Chloride Level 104 mmol/L (98-107) Carbon Dioxide Level 27 mmol/L (21-32) Anion Gap 11 (6-14) Blood Urea Nitrogen 9 mg/dL (7-20) Creatinine 1.4 mg/dL (0.6-1.0) Estimated GFR (Cockcroft-Gault) 48.0 BUN/Creatinine Ratio 6 (6-20) Glucose Level 130 mg/dL (70-99) Calcium Level 9.1 mg/dL (8.5-10.1) Magnesium Level 1.9 mg/dL (1.8-2.4) Total Bilirubin 0.2 mg/dL (0.2-1.0) Aspartate Amino Transf (AST/SGOT) 17 U/L (15-37) Alanine Aminotransferase (ALT/SGPT) 31 U/L (14-59) Alkaline Phosphatase 114 U/L (46-116) Troponin I Quantitative < 0.017 ng/mL (0.000-0.055) < 0.017 ng/mL (0.000-0.055) < 0.017 ng/mL (0.000-0.055) Total Protein 7.7 g/dL (6.4-8.2) Albumin 3.9 g/dL (3.4-5.0) Albumin/Globulin Ratio 1.0 (1.0-1.7) Thyroid Stimulating Hormone (TSH) 3.865 uIU/mL (0.358-3.74) Triglycerides Level 74 mg/dL (0-150) Cholesterol Level 206 mg/dL (0-200) LDL Cholesterol, Calculated 126 mg/dL (0-100) VLDL Cholesterol, Calculated 15 mg/dL (0-40) Non-HDL Cholesterol Calculated 141 mg/dL (0-129) HDL Cholesterol 65 mg/dL (40-60) Cholesterol/HDL Ratio 3.2 Images Images TDI E/Lateral E' 5.6 E/Medial E' 7.0 Pulmonary Valve PV Peak Velocity 95.3cm/s PV Peak Grad. 4mmHg Tricuspid Valve TR P. Velocity 203cm/s RAP ESTIMATE 3mmHg TR Peak Gr. 16mmHg RVSP 19mmHg Pulmonary Vein S1 Velocity 55.5cm/s D2 Velocity 46.9cm/s PVa duration 108msec LEFT VENTRICLE The left ventricle is normal size. There is borderline to mild concentric left ventricular hypertrophy. The left ventricular systolic function is normal and the ejection fraction is within normal range. The LV ejection fraction is 55- 60%. There is normal LV segmental wall motion. Transmitral Doppler flow pattern is Grade I-abnormal relaxation pattern. RIGHT VENTRICLE The right ventricle is normal size. There is normal right ventricular wall thickness. The right ventricular systolic function is normal. ATRIA The left atrium size is normal. The right atrium size is normal. The interatrial septum is intact with no evidence for an atrial septal defect or patent foramen ovale as noted on 2-D or Doppler imaging. AORTIC VALVE The aortic valve is normal in structure and function. Doppler and Color Flow revealed no significant aortic regurgitation. There is no significant aortic valvular stenosis. MITRAL VALVE The mitral valve is normal in structure and function. There is no evidence of mitral valve prolapse. There is no mitral valve stenosis. Doppler and Color Flow revealed no mitral valve regurgitation noted. TRICUSPID VALVE The tricuspid valve is not well visualized. Doppler and Color Flow revealed tra ce tricuspid regurgitation. There is no tricuspid valve stenosis. PULMONIC VALVE The pulmonic valve is not well visualized. Doppler and Color Flow revealed trace pulmonic valvular regurgitation. GREAT VESSELS The aortic root is normal in size. The IVC is normal in size and collapses >50% with inspiration. PERICARDIAL EFFUSION There is no evidence of significant pericardial effusion. Critical Notification Critical Value: No <Conclusion> The left ventricle is normal size. The left ventricular systolic function is normal and the ejection fraction is within normal range. The LV ejection fraction is 55-60%. There is borderline to mild concentric left ventricular hypertrophy. There is no significant aortic valvular stenosis. Doppler and Color Flow revealed no significant aortic regurgitation. Doppler and Color Flow revealed no mitral valve regurgitation noted. Doppler and Color Flow revealed trace tricuspid regurgitation. Signed by : Amy Salas MD Electronically Approved : 12/10/2018 13:05:48 DICTATED and SIGNED BY: AMY SALAS MD DATE: 12/10/18 1301 Examination: PORTABLE CHEST 1V History: Reason: palpitations / Spl. Instructions: / History: Comparison/Correlation: None Findings: Frontal view chest was obtained. Heart size and pulmonary vessels are normal. No infiltrate or pleural effusion. Postoperative findings of the cervical spine evident. Bony structures are otherwise intact. Impression: No active disease. Electronically signed by: Lebron Andre MD (03/22/2020 7:59 PM) [facility] DICTATED and SIGNED BY: LEBRON ANDRE MD DATE: 03/22/201958 VTE Prophylaxis Ordered VTE Prophylaxis Devices: No VTE Pharmacological Prophylaxi: Yes Assessment/Plan Assessment/Plan Impression: Palpitations HX HYPERTENSION borderline to mild concentric left ventricular hypertrophy. by recent ECHO Abnormal heart rhythm low grade fever possible serotonin syndrome CHRONIC PAIN SYNDROME ADMITTED CVC BED Cardiology consult TSH free t4 iv fluid support hold venlafaxine, buproprion CPK BLOOD CULTURE dvt prophylaxis LOW DOSE Beta onesimo, observe 64 min pt exam, chart review, > 50% of time spent with exam, chart review, pt care coordination Justicifation of Admission Dx: Justifications for Admission: Justification of Admission Dx: Yes CHF: Cardiac Arrhythmias Chronic Renal Failure: Hypertension Angina: Unstable Variant PADMINI ROCHA MD Mar 23, 2020 10:29
[2020-03-23] MEDS ORDERED: SODIUM PHOSPHATES 19/7GM 133 ML ENEMA. PR PRN (10:45)
[2020-03-23] MEDS ORDERED: MAG HYDROX/ALUMINUM HYD/SIMETH 30 ML ORAL.SUSP PO PRN (10:45)
[2020-03-23] MEDS ORDERED: ONDANSETRON PF 4 MG/2 ML VIAL. IV PRN (10:45)
[2020-03-23] MEDS ORDERED: guaiFENesin ORAL 200 MG/10 ML LIQUID. PO PRN (10:45)
[2020-03-23] MEDS ORDERED: 0.9 % SODIUM CHLORIDE 10 ML DISP.SYRIN. IV PRN (10:45)
[2020-03-23] MEDS ORDERED: DOCUSATE SODIUM 100 MG CAPSULE. PO PRN (10:45)
[2020-03-23] MEDS ORDERED: ACETAMINOPHEN 325 MG TABLET. PO PRN (10:45)
--- NOTE | 2020-03-23 11:04 | PDOC2 ---
CARDIAC CONSULT DATE OF CONSULT Date of Consult DATE: 03/23/20 TIME: 11:00 REASON FOR CONSULT Reason for Consult: Abnormal heart rhythm REFERRING PHYSICIAN Referring Physician: Dr. Og SOURCE Source: Chart review, Patient HISTORY OF PRESENT ILLNESS HISTORY OF PRESENT ILLNESS This is a 49 yo female who presented secondary to palpitation over the last couple of weeks. Was worse yesterday, so she decided to come to the ED for further evaluation and treatment. Denies any chest pain, palpitations, diaphoresis, SOA, or nausea/vomiting. Initial EKG noted with ST. Subsequent EKG shows SR with artifact. PAST MEDICAL HISTORY Past Medical History Cardiovascular: HTN, MVP Pulmonary: Asthma GI: GERD Heme/Onc: No pertinent hx Psych: Anxiety Rheumatologic: No pertinent hx Infectious disease: No pertinent hx ENT: No pertinent hx Renal/: No pertinent hx Endocrine: No pertinent hx Dermatology: No pertinent hx PAST SURGICAL HISTORY Past Surgical History appendectomy, lumbar fusion, hysterectomy, cervical fusion FAMILY HISTORY Family History noncontributory SOCIAL HISTORY Social History Smoke: No ALCOHOL: none Drugs: None Lives: with Family CURRENT MEDICATIONS CURRENT MEDICATIONS Current Medications Medications (Trade) Dose Ordered Sig/Bree Route PRN Reason Start Time Stop Time Status Last Admin Dose Admin Sodium Chloride 1,000 ml @ 1,000 mls/hr Q1H IV 03/22/20 18:38 03/22/20 19:37 DC 03/22/20 19:13 Diltiazem HCl (Cardizem Iv Push) 10 mg 1X ONCE IVP 03/22/20 19:15 03/22/20 19:16 DC 03/22/20 19:11 Metoprolol Tartrate (Lopressor Vial) 5 mg 1X ONCE IVP 03/22/20 20:00 03/22/20 20:01 DC 03/22/20 19:52 Potassium Chloride (Klor-Con) 40 meq 1X ONCE PO 03/22/20 20:00 03/22/20 20:01 DC 03/22/20 19:52 Diazepam (Valium) 5 mg 1X ONCE PO 03/22/20 23:30 03/22/20 23:31 DC 03/22/20 23:32 Topiramate (Topamax) 50 mg 1X ONCE PO 03/23/20 01:30 03/23/20 01:31 DC 03/23/20 01:37 Bupropion HCl (Wellbutrin Sr) 200 mg 1X ONCE PO 03/23/20 01:30 03/23/20 01:31 DC 03/23/20 01:37 Venlafaxine HCl (Effexor) 150 mg 1X ONCE PO 03/23/20 01:30 03/23/20 01:31 DC 03/23/20 01:36 Gabapentin (Neurontin) 300 mg 1X ONCE PO 03/23/20 01:30 03/23/20 01:31 DC 03/23/20 01:36 ALLERGIES ALLERGIES: Coded Allergies: No Known Drug Allergies (Unverified , 09/19/18) ROS Review of System 14 point ROS conducted with pertinent positives noted above in HPI PHYSICAL EXAM PHYSICAL EXAM General: Alert, Oriented X3, Cooperative, No acute distress HEENT: Atraumatic, Mucous membr. moist/pink Lungs: Clear to auscultation, Normal air movement Heart: Regular rate (SR), Normal S1, Normal S2, No murmurs Abdomen: Soft, No tenderness Extremities: No cyanosis, No edema Skin: No breakdown, No significant lesion Neuro: Normal speech, Sensation intact Psych/Mental Status: Mental status NL, Mood NL MUSCULOSKELETAL: Osteoarthritic changes both hands VITALS/I&O VITALS/I&O: Vital Signs Date Time Temp Pulse Resp B/P (MAP) Pulse Ox O2 Delivery O2 Flow Rate FiO2 03/23/20 07:00 98.4 72 18 107/66 (80) 98 Room Air 98.4 I & O 03/22/20 03/22/20 03/23/20 15:00 23:00 07:00 Intake Total 1000 ml 250 ml Output Total 300 ml Balance 1000 ml -50 ml LABS Lab: Laboratory Tests Test 03/22/20 19:00 03/23/20 01:25 03/23/20 04:27 White Blood Count 6.2 x10^3/uL (4.0-11.0) Red Blood Count 5.02 x10^6/uL (3.50-5.40) Hemoglobin 13.1 g/dL (12.0-15.5) Hematocrit 40.6 % (36.0-47.0) Mean Corpuscular Volume 81 fL (79-100) Mean Corpuscular Hemoglobin 26 pg (25-35) Mean Corpuscular Hemoglobin Concent 32 g/dL (31-37) Red Cell Distribution Width 17.3 % (11.5-14.5) H Platelet Count 306 x10^3/uL (140-400) Neutrophils (%) (Auto) 58 % (31-73) Lymphocytes (%) (Auto) 32 % (24-48) Monocytes (%) (Auto) 6 % (0-9) Eosinophils (%) (Auto) 3 % (0-3) Basophils (%) (Auto) 1 % (0-3) Neutrophils # (Auto) 3.6 x10^3/uL (1.8-7.7) Lymphocytes # (Auto) 2.0 x10^3/uL (1.0-4.8) Monocytes # (Auto) 0.4 x10^3/uL (0.0-1.1) Eosinophils # (Auto) 0.2 x10^3/uL (0.0-0.7) Basophils # (Auto) 0.1 x10^3/uL (0.0-0.2) Sodium Level 142 mmol/L (136-145) Potassium Level 2.9 mmol/L (3.5-5.1) *L Chloride Level 104 mmol/L (98-107) Carbon Dioxide Level 27 mmol/L (21-32) Anion Gap 11 (6-14) Blood Urea Nitrogen 9 mg/dL (7-20) Creatinine 1.4 mg/dL (0.6-1.0) H Estimated GFR (Cockcroft-Gault) 48.0 BUN/Creatinine Ratio 6 (6-20) Glucose Level 130 mg/dL (70-99) H Calcium Level 9.1 mg/dL (8.5-10.1) Magnesium Level 1.9 mg/dL (1.8-2.4) Total Bilirubin 0.2 mg/dL (0.2-1.0) Aspartate Amino Transferase (AST) 17 U/L (15-37) Alanine Aminotransferase (ALT) 31 U/L (14-59) Alkaline Phosphatase 114 U/L (46-116) Troponin I Quantitative < 0.017 ng/mL (0.000-0.055) < 0.017 ng/mL (0.000-0.055) < 0.017 ng/mL (0.000-0.055) Total Protein 7.7 g/dL (6.4-8.2) Albumin 3.9 g/dL (3.4-5.0) Albumin/Globulin Ratio 1.0 (1.0-1.7) Thyroid Stimulating Hormone (TSH) 3.865 uIU/mL (0.358-3.74) H Triglycerides Level 74 mg/dL (0-150) Cholesterol Level 206 mg/dL (0-200) H LDL Cholesterol, Calculated 126 mg/dL (0-100) H VLDL Cholesterol, Calculated 15 mg/dL (0-40) Non-HDL Cholesterol Calculated 141 mg/dL (0-129) H HDL Cholesterol 65 mg/dL (40-60) H Cholesterol/HDL Ratio 3.2 Laboratory Tests 03/22/20 19:00 Laboratory Tests 03/22/20 19:00 ECHOCARDIOGRAM ECHOCARDIOGRAM <Conclusion> The left ventricle is normal size. The left ventricular systolic function is normal and the ejection fraction is within normal range. The LV ejection fraction is 55-60%. There is borderline to mild concentric left ventricular hypertrophy. There is no significant aortic valvular stenosis. Doppler and Color Flow revealed no significant aortic regurgitation. Doppler and Color Flow revealed no mitral valve regurgitation noted. Doppler and Color Flow revealed trace tricuspid regurgitation. DATE: 12/10/18 1305 ASSESSMENT/PLAN ASSESSMENT/PLAN 1. Palpitations; Initial EKG with ST. Subsequent shows SR with artifact. Echo last year with preserved LV systolic function 2. Hypertension; controlled 3. Hyperlipidemia 4. Hypothyroidism 5. Anxiety/depression 6. Chronic pain syndrome with known cervical and lumbar fusion Recommendations Start low-dose metoprolol for rate control Lipids, TSH, Mg level Outpatient event monitor has been arranged Outpateint echo to assess LV systolic function Supportive care Follow up with Dr. Tam as scheduled. RICKIE BERGMAN APRN Mar 23, 2020 11:04
[2020-03-23 11:41] LABS: BILIRUBIN,URINE NEGATIVE (NEG); CLARITY,URINE CLEAR; COLOR,URINE YELLOW; NITRITE,URINE NEGATIVE (NEG); PROTEIN,URINE NEGATIVE (NEG-TRACE); UROBILINOGEN,URINE 0.2 mg/dL (0.2 mg/dL)
[2020-03-23 11:52] LABS: BACTERIA,URINE 0 /HPF (0-FEW); RBC,URINE 0 /HPF (0-2); SQUAMOUS EPITHELIAL CELL,UR FEW /LPF; WBC,URINE 0 /HPF (0-4)
--- NOTE | 2020-03-23 12:01 | NUR ---
SS following for discharge planning. SS reviewed pt chart and discussed with pt RN. Pt is from home and is currently on room air. SS will continue to follow for discharge planning.
[2020-03-23] MEDS: buPROPion SR 100 MG TABLET.SA. PO SCH ×2 (12:49→21:25)
[2020-03-23] MEDS: VENLAFAXINE 75 MG TABLET. PO SCH ×2 (12:49→21:20)
[2020-03-23] MEDS: METOPROLOL TART IMMED RELEASE 25 MG TABLET. PO SCH ×2 (12:49→21:20)
[2020-03-23] MEDS: DOCUSATE SODIUM 100 MG CAPSULE. PO SCH ×2 (12:49→21:25)
[2020-03-23] MEDS: PANTOPRAZOLE 40 MG TABLET.DR. PO SCH (12:49)
[2020-03-23] MEDS: IV NORMAL SALINE 1000ML BAG 1,000 ML IV SCH ×2 (12:50→21:18)
[2020-03-23 13:10] LABS: CALCIUM 8.6 mg/dL (8.5-10.1); CREATININE 1.1 mg/dL (0.6-1.0); GFR 63.4; MAGNESIUM 1.9 mg/dL (1.8-2.4)
[2020-03-23] MEDS ORDERED: ENOXAPARIN 40 MG/0.4 ML SYRINGE. SQ SCH (16:00)
[2020-03-23] MEDS ORDERED: CALCIUM CARBONATE 500 MG TAB.CHEW PO PRN (18:00)
--- NOTE | 2020-03-23 19:25 | NUR ---
Assessment completed vss poc explained pt with chronic back pain. Will resume care and continue to monitor pt. Call light in reach.
[2020-03-23] MEDS ORDERED: diazePAM 5 MG TABLET PO SCH (21:00)
[2020-03-23] MEDS ORDERED: ATORVASTATIN CALCIUM 20 MG TABLET PO SCH (21:00)
[2020-03-23] MEDS: oxyCODONE/APAP 5/325 1 TAB TABLET PO PRN (21:21)
[2020-03-24 02:57] VITALS: BP 84/51
[2020-03-24 03:08] VITALS: BP 110/61
[2020-03-24 05:24] LABS: BASO % 1 % (0-3); EOS # 0.2 x10^3/uL (0.0-0.7); EOS % 5 % (0-3); HEMATOCRIT 36.3 % (36.0-47.0); HEMOGLOBIN 11.4 g/dL (12.0-15.5); LYMPH # 1.7 x10^3/uL (1.0-4.8); LYMPH % 39 % (24-48); MEAN CORPUSCULAR HEMOGLOBIN 26 pg (25-35); MEAN CORPUSCULAR HGB CONC 31 g/dL (31-37); MEAN CORPUSCULAR VOLUME 82 fL (79-100); MONO # 0.4 x10^3/uL (0.0-1.1); MONO % 9 % (0-9); NEUT % 47 % (31-73); PLATELET COUNT 262 x10^3/uL (140-400); RED BLOOD COUNT 4.44 x10^6/uL (3.50-5.40); RED CELL DISTRIBUTION WIDTH 17.5 % (11.5-14.5); WHITE BLOOD COUNT 4.3 x10^3/uL (4.0-11.0)
[2020-03-24 05:44] LABS: ALBUMIN/GLOBULIN RATIO 0.9 (1.0-1.7); CALCIUM 7.6 mg/dL (8.5-10.1); CREATININE 1.2 mg/dL (0.6-1.0); GFR 57.3; POTASSIUM 3.4 mmol/L (3.5-5.1); TOTAL BILIRUBIN 0.1 mg/dL (0.2-1.0); TOTAL PROTEIN 6.3 g/dL (6.4-8.2)
[2020-03-24] MEDS: PANTOPRAZOLE 40 MG TABLET.DR. PO SCH (06:25)
[2020-03-24 07:00] VITALS: BP 101/56
[2020-03-24] MEDS: VENLAFAXINE 75 MG TABLET. PO SCH (09:08)
[2020-03-24] MEDS: METOPROLOL TART IMMED RELEASE 25 MG TABLET. PO SCH (09:08)
[2020-03-24] MEDS: IV NORMAL SALINE 1000ML BAG 1,000 ML IV SCH (09:08)
[2020-03-24] MEDS: DOCUSATE SODIUM 100 MG CAPSULE. PO SCH (09:09)
[2020-03-24] MEDS: buPROPion SR 100 MG TABLET.SA. PO SCH (09:09)
[2020-03-24] MEDS ORDERED: POTASSIUM CHLORIDE 20 MEQ TABLET.ER. PO ONE (09:45)
--- NOTE | 2020-03-24 09:45 | PDOC ---
IRVING KILLIAN INFECTION CONTROL SPECIALIST 03/24/20 0945: CARDIO Progress Notes Date and Time Date of Service 03/24/2020 Time of Evaluation 0930 Subjective Subjective: No Chest Pain, No shortness of breath, No Palpitations Vitals Vitals Vital Signs Date Time Temp Pulse Resp B/P (MAP) Pulse Ox O2 Delivery O2 Flow Rate FiO2 03/24/20 09:08 78 101/56 03/24/20 07:00 98.2 18 100 Room Air 98.2 Weight Weight [ ] Input and Output Intake and Output Intake and Output 03/24/20 07:00 Intake Total 1005 ml Output Total 400 ml Balance 605 ml Intake Oral 1005 ml Output Urine Total 400 ml Laboratory Labs Laboratory Tests Test 03/23/20 11:15 03/23/20 12:15 03/24/20 05:00 Urine Color Yellow Urine Clarity Clear Urine pH 8.0 (<5.0-8.0) Urine Specific [place] 1.010 (1.000-1.030) Urine Protein Negative mg/dL (NEG-TRACE) Urine Glucose (UA) Negative mg/dL (NEG) Urine Ketones (Stick) Negative mg/dL (NEG) Urine Blood Negative (NEG) Urine Nitrite Negative (NEG) Urine Bilirubin Negative (NEG) Urine Urobilinogen Dipstick 0.2 mg/dL (0.2 mg/dL) Urine Leukocyte Esterase Negative (NEG) Urine RBC 0 /HPF (0-2) Urine WBC 0 /HPF (0-4) Urine Squamous Epithelial Cells Few /LPF Urine Bacteria 0 /HPF (0-FEW) Sodium Level 142 mmol/L (136-145) 142 mmol/L (136-145) Potassium Level 4.0 mmol/L (3.5-5.1) 3.4 mmol/L (3.5-5.1) Chloride Level 106 mmol/L (98-107) 108 mmol/L (98-107) Carbon Dioxide Level 25 mmol/L (21-32) 24 mmol/L (21-32) Anion Gap 11 (6-14) 10 (6-14) Blood Urea Nitrogen 10 mg/dL (7-20) 12 mg/dL (7-20) Creatinine 1.1 mg/dL (0.6-1.0) 1.2 mg/dL (0.6-1.0) Estimated GFR (Cockcroft-Gault) 63.4 57.3 Glucose Level 107 mg/dL (70-99) 136 mg/dL (70-99) Calcium Level 8.6 mg/dL (8.5-10.1) 7.6 mg/dL (8.5-10.1) Magnesium Level 1.9 mg/dL (1.8-2.4) White Blood Count 4.3 x10^3/uL (4.0-11.0) Red Blood Count 4.44 x10^6/uL (3.50-5.40) Hemoglobin 11.4 g/dL (12.0-15.5) Hematocrit 36.3 % (36.0-47.0) Mean Corpuscular Volume 82 fL (79-100) Mean Corpuscular Hemoglobin 26 pg (25-35) Mean Corpuscular Hemoglobin Concent 31 g/dL (31-37) Red Cell Distribution Width 17.5 % (11.5-14.5) Platelet Count 262 x10^3/uL (140-400) Neutrophils (%) (Auto) 47 % (31-73) Lymphocytes (%) (Auto) 39 % (24-48) Monocytes (%) (Auto) 9 % (0-9) Eosinophils (%) (Auto) 5 % (0-3) Basophils (%) (Auto) 1 % (0-3) Neutrophils # (Auto) 2.0 x10^3/uL (1.8-7.7) Lymphocytes # (Auto) 1.7 x10^3/uL (1.0-4.8) Monocytes # (Auto) 0.4 x10^3/uL (0.0-1.1) Eosinophils # (Auto) 0.2 x10^3/uL (0.0-0.7) Basophils # (Auto) 0.0 x10^3/uL (0.0-0.2) BUN/Creatinine Ratio 10 (6-20) Total Bilirubin 0.1 mg/dL (0.2-1.0) Aspartate Amino Transf (AST/SGOT) 13 U/L (15-37) Alanine Aminotransferase (ALT/SGPT) 25 U/L (14-59) Alkaline Phosphatase 95 U/L (46-116) Total Protein 6.3 g/dL (6.4-8.2) Albumin 3.0 g/dL (3.4-5.0) Albumin/Globulin Ratio 0.9 (1.0-1.7) Physical Exam HEENT: Neck Supple W Full Motion Chest: Symmetric LUNGS: Clear to Auscultation Heart: RRR (SR no rhythm ectopies) Abdomen: Soft N/T Extremities: No Calf Tenderness Neurology: alert, oriented, follow commands Assessment Assessment 1. Palpitations; possibly from anxiety. no rhythm ectopies so far 2. Hypertension; controlled 3. DLP; statin 4. Hypothyroidism 5. Anxiety/depression 6. Chronic pain syndrome with known cervical and lumbar fusion Recommendations Continue lopressor MCOT with outpt TTE Follow up with Dr. Wells as scheduled. Justicifation of Admission Dx: Justifications for Admission: Justification of Admission Dx: Yes CHF: Cardiac Arrhythmias Chronic Renal Failure: Hypertension Angina: Unstable Variant AMY WELLS MD 03/24/20 1652: CARDIO Progress Notes Assessment Assessment Patient seen and examined I agree with our nurse practitioners assessment and plan. Palpitations; improved. Rhythm stable. Continuing beta-blockers. Outpatient monitoring with office follow-up. Hypertension; controlled HLP; statin Chronic pain syndrome with known cervical and lumbar fusion IRVING KILLIAN APRN Mar 24, 2020 09:45 AMY WELLS MD Mar 24, 2020 16:52
--- NOTE | 2020-03-24 10:09 | NUR ---
SS following up with discharge planning. SS reviewed pt chart and discussed with pt RN. Pt is currently on room air. Possible discharge to home today. SS will continue to follow for discharge planning.
[2020-03-24 11:00] VITALS: BP 112/66
[2020-03-24] MEDS ORDERED: METO25TA4 PO (11:20)
[2020-03-24] MEDS ORDERED: ATOR20TA PO (11:21)
--- NOTE | 2020-03-24 11:55 | DS ---
DATE OF DISCHARGE: 03/24/2020 ADMISSION DIAGNOSES: Palpitations, hypertension. DISCHARGE DIAGNOSES: Resolving palpitations, possibly from anxiety; hypertension, hyperlipidemia, hypothyroidism, anxiety, depression. CONSULTS: Cardiology. PROCEDURES: None. HOSPITAL COURSE: The patient is a pleasant middle-aged female who presented with palpitations. She was admitted. We did cardiac monitoring, serial enzymes, serial EKGs. We consulted Cardiology. So far, her workup was negative. This morning, I saw her and examined her. She is doing well. PHYSICAL EXAMINATION: HEART: Tones are normal. LUNGS: Clear. ABDOMEN: Soft. EXTREMITIES: No edema. We will plan to discharge with close outpatient followup. DISPOSITION: Home. ACTIVITY: As tolerated. DIET: Low sodium. MEDICATIONS: Please see the MRAD. I did give her all new prescriptions for her home meds. TOTAL TIME: 32 minutes. MOSES JUNG DO DR: MARIBEL/sulema JOB#: [id number] / [id number]
[2020-03-24] MEDS: oxyCODONE/APAP 5/325 1 TAB TABLET PO PRN (12:23)
--- NOTE | 2020-03-24 14:15 | NUR ---
Discharge Note: SHARRON HENSON [address] Discharge instructions and discharge home medications reviewed with Patient and a copy given including scripts for Lipitor, Lopressor , albuterol, and Nexium. All questions have been answered and understanding verbalized. The following instructions and handouts were given: Cardiac diet, Fat and high cholesterol diet, and potassium content food. Discontinued iv line and intact. Patient discharged to home with self-care via private vehicle.
== END 2020-03-24 13:45 | disposition home or self-care (01) | DRG 309 ==
LOC: ER 18:22 → 2 SOUTH 22:40
PROVIDERS: ADMIT Internal Medicine; ATTEND Internal Medicine
DX: I47.1 Supraventricular tachycardia (principal); I13.0 Hypertensive heart and chronic kidney disease with heart failure and stage 1 through stage 4 chronic kidney disease, or unspecified chronic kidney disease; F41.9 Anxiety disorder, unspecified; E03.9 Hypothyroidism, unspecified; I49.9 Cardiac arrhythmia, unspecified; K21.9 Gastro-esophageal reflux disease without esophagitis; E78.5 Hyperlipidemia, unspecified; G43.909 Migraine, unspecified, not intractable, without status migrainosus; F32.9 Major depressive disorder, single episode, unspecified; G89.4 Chronic pain syndrome; I50.9 Heart failure, unspecified; J45.909 Unspecified asthma, uncomplicated; N18.9 Chronic kidney disease, unspecified; Z82.49 Family history of ischemic heart disease and other diseases of the circulatory system; Z90.710 Acquired absence of both cervix and uterus; Z98.1 Arthrodesis status
CPT/HCPCS: 36415; 71045; 80048; 80053; 80061; 81001; 82550; 83735; 84439; 84443; 84484; 85025; 87040; 93005; 96361; 96372; 96374; 96375; J1650; J3490; J7030; 99285-25; G0378

== ENCOUNTER 2020-06-03 15:53 | Emergency (ER) | payer OTHER ==
[~2020-06-03] VITALS: Ht 165.1 cm; Wt 90.9 kg
[~2020-06-03 15:53] MED LIST changes: +ATOR20TA PO; +DIAZ5TAB PO; +GABA300C18 PO; +METO25TA4 PO; -OXYC-411 PO; +OXYC1TAB20 PO; +TOPI50TA38 PO
--- NOTE | 2020-06-03 16:45 | RAD ---
INDICATION: Reason: CHEST PAIN / Spl. Instructions: / History: COMPARISON: March 22, 2020 FINDINGS: Single view of chest obtained. No focal airspace consolidation or pulmonary edema. Cardiac silhouette is unremarkable given portable technique. IMPRESSION: * No focal airspace consolidation or edema. Electronically signed by: Wilfredo Vilchis MD (06/03/2020 4:42 PM) [id number]
[2020-06-03 16:56] LABS: BASO % 1 % (0-3); EOS # 0.1 x10^3/uL (0.0-0.7); EOS % 1 % (0-3); HEMOGLOBIN 13.8 g/dL (12.0-15.5); LYMPH # 1.7 x10^3/uL (1.0-4.8); LYMPH % 26 % (24-48); MEAN CORPUSCULAR HEMOGLOBIN 27 pg (25-35); MEAN CORPUSCULAR HGB CONC 33 g/dL (31-37); MEAN CORPUSCULAR VOLUME 82 fL (79-100); MONO # 0.5 x10^3/uL (0.0-1.1); MONO % 7 % (0-9); NEUT # 4.3 x10^3/uL (1.8-7.7); NEUT % 65 % (31-73); PLATELET COUNT 274 x10^3/uL (140-400); RED BLOOD COUNT 5.12 x10^6/uL (3.50-5.40); RED CELL DISTRIBUTION WIDTH 14.8 % (11.5-14.5); WHITE BLOOD COUNT 6.6 x10^3/uL (4.0-11.0)
[2020-06-03 17:05] LABS: PROTHROMBIN TIME PATIENT 12.3 SEC (11.7-14.0)
--- NOTE | 2020-06-03 17:23 | PHYS DOC ---
Past Medical History Past Medical History: Asthma, GERD, Hypertension, Migraines Additional Past Medical Histor: MVP,CHRONIC PAIN, Irregular heart beat Past Surgical History: Hysterectomy Additional Past Surgical Histo: Back surgery, neck surgery Smoking Status: Never Smoker Alcohol Use: None Drug Use: None General Adult EDM: Chief Complaint: CHEST PAIN HPI: HPI: Patient is a 49 year old female who presented to ER today for evaluation of heart palpitation and chest pain for about a week. Patient denies any cough, no fever, no abdominal pain, no nausea vomiting. Patient was evaluated here at the end of February for the same problem, she was admitted to the hospital, she was evaluated by election clerk in the hospital did not find any problem. Patient was discharged home, she is scheduled to follow-up with a election clerk outpatient on June 22. Patient denies any history of diabetes, no history of cardiac disease in her family. Patient denies any recent travel or operation, no history of blood clot disorder in her family or in her history. Recent injury, no recent exposure to anybody who tested positive for COVID-19. Review of Systems: Review of Systems: Constitutional: Denies fever or chills. [] Eyes: Denies change in visual acuity. [] HENT: Denies nasal congestion or sore throat. [] Respiratory: Denies cough or shortness of breath. [] Cardiovascular: Positive for chest pain, no edema, positive for palpitation GI: Denies abdominal pain, nausea, vomiting, bloody stools or diarrhea. [] : Denies dysuria. [] Musculoskeletal: Denies back pain or joint pain. [] Integument: Denies rash. [] Neurologic: Denies headache, focal weakness or sensory changes. [] Endocrine: Denies polyuria or polydipsia. [] Lymphatic: Denies swollen glands. [] Psychiatric: Denies depression or anxiety. [] Heart Score: HEART Score for Chest Pain: HEART Score for Chest Pain Response (Comments) Value History Slighlty/Non-Suspicious 0 ECG Normal 0 Age >45 - < 65 1 Risk Factors 1 or 2 Risk Factors 1 Troponin < Normal Limit 0 Total 2 Risk Factors: Risk Factors: DM, Current or recent (<one month) smoker, HTN, HLP, family history of CAD, obesity. Risk Scores: Score 0 - 3: 2.5% MACE over next 6 weeks - Discharge Home Score 4 - 6: 20.3% MACE over next 6 weeks - Admit for Clinical Observation Score 7 - 10: 72.7% MACE over next 6 weeks - Early Invasive Strategies Allergies: Allergies: Allergies Coded Allergies Type Severity Reaction Last Updated Verified No Known Drug Allergies 09/19/18 No Physical Exam: PE: Constitutional: Well developed, well nourished, no acute distress, non-toxic appearance. [] HENT: Normocephalic, atraumatic, bilateral external ears normal, oropharynx moist, no oral exudates, nose normal. [] Eyes: PERRLA, EOMI, conjunctiva normal, no discharge. [] Neck: Normal range of motion, no tenderness, supple, no stridor. [] Cardiovascular:Heart rate regular rhythm, no murmur [] Lungs & Thorax: Bilateral breath sounds clear to auscultation [] Abdomen: Bowel sounds normal, soft, no tenderness, no masses, no pulsatile masses. [] Skin: Warm, dry, no erythema, no rash. [] Back: No tenderness, no CVA tenderness. [] Extremities: No tenderness, no cyanosis, no clubbing, ROM intact, no edema. [] Neurologic: Alert and oriented X 3, normal motor function, normal sensory function, no focal deficits noted. [] Psychologic: Affect normal, judgement normal, mood normal. [] Current Patient Data: Labs: Laboratory Tests Test 06/03/20 16:45 White Blood Count 6.6 x10^3/uL (4.0-11.0) Red Blood Count 5.12 x10^6/uL (3.50-5.40) Hemoglobin 13.8 g/dL (12.0-15.5) Hematocrit 42.0 % (36.0-47.0) Mean Corpuscular Volume 82 fL (79-100) Mean Corpuscular Hemoglobin 27 pg (25-35) Mean Corpuscular Hemoglobin Concent 33 g/dL (31-37) Red Cell Distribution Width 14.8 % (11.5-14.5) H Platelet Count 274 x10^3/uL (140-400) Neutrophils (%) (Auto) 65 % (31-73) Lymphocytes (%) (Auto) 26 % (24-48) Monocytes (%) (Auto) 7 % (0-9) Eosinophils (%) (Auto) 1 % (0-3) Basophils (%) (Auto) 1 % (0-3) Neutrophils # (Auto) 4.3 x10^3/uL (1.8-7.7) Lymphocytes # (Auto) 1.7 x10^3/uL (1.0-4.8) Monocytes # (Auto) 0.5 x10^3/uL (0.0-1.1) Eosinophils # (Auto) 0.1 x10^3/uL (0.0-0.7) Basophils # (Auto) 0.0 x10^3/uL (0.0-0.2) Prothrombin Time 12.3 SEC (11.7-14.0) Prothrombin Time INR 1.0 (0.8-1.1) Laboratory Tests 06/03/20 16:45 Vital Signs: Vital Signs Date Time Temp Pulse Resp B/P (MAP) Pulse Ox O2 Delivery O2 Flow Rate FiO2 06/03/20 16:00 96.8 127 17 134/81 (98) 97 96.8 EKG: EKG: EKG was done at 1604, heart rate of 110 bpm, sinus tachycardia, no ST segment elevation. Radiology/Procedures: Radiology/Procedures: [][facility] [address] [place] [address] IMAGING REPORT Signed PATIENT: SHARRON HENSON ACCOUNT: [id number] : 1970 LOCATION: ER AGE: 49 SEX: F EXAM STATUS: REG ER ORD. PHYSICIAN: YAEL ROCA DO REASON: CHEST PAIN PROCEDURE: PORTABLE CHEST 1V INDICATION: Reason: CHEST PAIN / Spl. Instructions: / History: COMPARISON: March 22, 2020 FINDINGS: Single view of chest obtained. No focal airspace consolidation or pulmonary edema. Cardiac silhouette is unremarkable given portable technique. IMPRESSION: * No focal airspace consolidation or edema. Electronically signed by: Evangelist Vilchis MD (06/03/2020 4:42 PM) [id number] DICTATED and SIGNED BY: EVANGELIST VILCHIS MD DATE: 06/03/20 3256 Course & Med Decision Making: Course & Med Decision Making Pertinent Labs and Imaging studies reviewed. (See chart for details) Patient is a 49-year-old female who presented to ER today for evaluation of chest pain and heart palpitation for about a week, work-up in ER did not show any acute problem. Patient will will be discharged home, she will need to follow-up with a election clerk at scheduled on June 22 for outpatient evaluation. Dragon Disclaimer: Dragon Disclaimer: This electronic medical record was generated, in whole or in part, using a voice recognition dictation system. Departure Departure Impression: Primary Impression: Chest pain Disposition: HOME, SELF-CARE Condition: IMPROVED Referrals: UNKNOWN PCP NAME (PCP) please follow up with the election clerk as scheduled on 06/22/20 Patient Instructions: Chest Pain (Nonspecific) Additional Instructions: Thank you for visiting our Emergency Department. We appreciate you trusting us with your care. If any additional problems come up don't hesitate to return to visit us. Please follow up with your primary care provider so they can plan additional care if needed and know about the problem that you had. If symptoms worsen come back to the Emergency Department. Any concerning symptoms that start such as chest pain, shortness of air, weakness or numbness on one side of the body, running high fevers or any other concerning symptoms return to the ER. Justicifation of Admission Dx: Justifications for Admission: Justification of Admission Dx: Yes CHF: Cardiac Arrhythmias Chronic Renal Failure: Hypertension Angina: Unstable Variant AYEL ROCA DO Jun 03, 2020 17:23
[2020-06-03 17:41] LABS: CALCIUM 9.7 mg/dL (8.5-10.1); CREATININE 1.1 mg/dL (0.6-1.0); GFR 63.4
[2020-06-03 17:49] LABS: ALBUMIN/GLOBULIN RATIO 1.1 (1.0-1.7); MAGNESIUM 2.4 mg/dL (1.8-2.4); TOTAL BILIRUBIN 0.3 mg/dL (0.2-1.0); TOTAL PROTEIN 7.8 g/dL (6.4-8.2)
[2020-06-03 17:50] LABS: POTASSIUM 3.7 mmol/L (3.5-5.1)
[2020-06-03 18:24] LABS: BILIRUBIN,URINE NEGATIVE (NEG); CLARITY,URINE CLEAR; COLOR,URINE YELLOW; NITRITE,URINE NEGATIVE (NEG); PROTEIN,URINE NEGATIVE (NEG-TRACE); UROBILINOGEN,URINE 0.2 mg/dL (0.2 mg/dL)
[2020-06-03 18:33] LABS: BACTERIA,URINE MODERATE /HPF (0-FEW); SQUAMOUS EPITHELIAL CELL,UR MANY /LPF
[2020-06-03 18:35] LABS: RBC,URINE 0 /HPF (0-2); WBC,URINE RARE /HPF (0-4)
[2020-06-03 18:36] VITALS: BP 110/73
--- NOTE | 2020-06-04 06:24 | EKG ---
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
== END 2020-06-03 18:50 | disposition home or self-care (01) ==
LOC: ER 15:53
DX: R07.89 Other chest pain (principal); R00.2 Palpitations; J45.909 Unspecified asthma, uncomplicated; K21.9 Gastro-esophageal reflux disease without esophagitis; I10 Essential (primary) hypertension; G43.909 Migraine, unspecified, not intractable, without status migrainosus; G89.29 Other chronic pain
CPT/HCPCS: 36415; 71045; 80053; 81001; 83690; 83735; 83880; 84484; 85025; 85610; 87086; 93005; 99285-25

== ENCOUNTER 2020-10-15 12:21 | Emergency (ER) | payer SELFPAY ==
[~2020-10-15] VITALS: Ht 165.1 cm; Wt 97.5 kg
[2020-10-15 12:29] VITALS: BP 129/81
--- NOTE | 2020-10-15 13:13 | RAD ---
XR EXAM OF ANKLE_RIGHT 3VIEWS, XR FOOT_RIGHT 3 VIEWS 10/15/2020 12:41 PM INDICATION: Fall, pain along the lateral aspect COMPARISON: None available. TECHNIQUE: 3 views of the right ankle and 3 views the right foot are provided. FINDINGS/ IMPRESSION: Lateral soft tissue swelling is identified along the ankle. No definite acute fracture or dislocation is identified. Tibial plafond and talar dome are intact. Ankle mortise is congruent. Talus and calca neus are intact. Tarsals, metatarsals and phalanges are intact. Electronically signed by: Michaela Jenkins MD (10/15/2020 1:11 PM) FRANCISCO
--- NOTE | 2020-10-15 13:56 | ED.ADGEN ---
Past Medical History Past Medical History: Asthma, GERD, Hypertension, Migraines, Other Additional Past Medical Histor: MVP,CHRONIC PAIN, Irregular heart beat Past Surgical History: Hysterectomy, Other Additional Past Surgical Histo: Back surgery, neck surgery Smoking Status: Never Smoker Alcohol Use: None Drug Use: None General Adult EDM: Chief Complaint: LOWEREXTREMITY INJURY HPI: HPI: Patient is a 50 year old female coming in for concern of pain and swelling to her right foot and ankle. Patient states that yesterday she had a mechanical fall down to 3 steps with an inversion of her right ankle. She should not lose consciousness and that she had a few other contusions that are improving her main concern is her foot. Says she otherwise has been well no recent fevers, cough, diarrhea, vomiting. Review of Systems: Review of Systems: Negative other than HPI Allergies: Allergies: Allergies Coded Allergies Type Severity Reaction Last Updated Verified No Known Drug Allergies 09/19/18 No Physical Exam: PE: Constitutional: Well developed, well nourished, no acute distress, non-toxic appearance. [] HENT: Normocephalic, atraumatic, bilateral external ears normal, oropharynx moist, no oral exudates, nose normal. [] Eyes: PERRLA, EOMI, conjunctiva normal, no discharge. [] Neck: Normal range of motion, no tenderness, supple, no stridor. [] Cardiovascular:Heart rate regular rhythm, no murmur [] Lungs & Thorax: Bilateral breath sounds clear to auscultation [] Abdomen: Bowel sounds normal, soft, no tenderness, no masses, no pulsatile masses. [] Skin: Warm, dry, no erythema, no rash. [] Back: No tenderness, no CVA tenderness. [] Extremities: No tenderness, no cyanosis, no clubbing, ROM intact, no edema. [] Tenderness and swelling over lateral right foot and lateral malleolus Neurologic: Alert and oriented X 3, normal motor function, normal sensory function, no focal deficits noted. [] Psychologic: Affect normal, judgement normal, mood normal. [] Current Patient Data: Vital Signs: Vital Signs Date Time Temp Pulse Resp B/P (MAP) Pulse Ox O2 Delivery O2 Flow Rate FiO2 10/15/20 12:29 98.2 115 17 129/81 (97) 97 Room Air 98.2 EKG: EKG: [] Heart Score: Risk Factors: Risk Factors: DM, Current or recent (<one month) smoker, HTN, HLP, family history of CAD, obesity. Risk Scores: Score 0 - 3: 2.5% MACE over next 6 weeks - Discharge Home Score 4 - 6: 20.3% MACE over next 6 weeks - Admit for Clinical Observation Score 7 - 10: 72.7% MACE over next 6 weeks - Early Invasive Strategies Radiology/Procedures: Radiology/Procedures: XR EXAM OF ANKLE_RIGHT 3VIEWS, XR FOOT_RIGHT 3 VIEWS 10/15/2020 12:41 PM INDICATION: Fall, pain along the lateral aspect COMPARISON: None available. TECHNIQUE: 3 views of the right ankle and 3 views the right foot are provided. FINDINGS/ IMPRESSION: Lateral soft tissue swelling is identified along the ankle. No definite acute fracture or dislocation is identified. Tibial plafond and talar dome are intact. Ankle mortise is congruent. Talus and calcaneus are intact. Tarsals, metatarsals and phalanges are intact.[] Course & Med Decision Making: Course & Med Decision Making Pertinent Labs and Imaging studies reviewed. (See chart for details) [] Dragon Disclaimer: Dragon Disclaimer: This electronic medical record was generated, in whole or in part, using a voice recognition dictation system. Departure Departure Impression: Primary Impression: Moderate right ankle sprain Disposition: 01 DC HOME SELF CARE/HOMELESS Condition: STABLE Referrals: NO PCP (PCP) Prov [facility] Orth[facility] Surgery Patient Instructions: Elastic Bandage and ALAN EVANS MD Oct 15, 2020 13:56
== END 2020-10-15 14:03 | disposition home or self-care (01) ==
LOC: ER 12:21
DX: S93.491A Sprain of other ligament of right ankle, initial encounter (principal); M79.671 Pain in right foot; R60.0 Localized edema; J45.909 Unspecified asthma, uncomplicated; K21.9 Gastro-esophageal reflux disease without esophagitis; I10 Essential (primary) hypertension; G43.909 Migraine, unspecified, not intractable, without status migrainosus; G89.29 Other chronic pain; Z90.710 Acquired absence of both cervix and uterus; Z98.890 Other specified postprocedural states; W10.8XXA Fall (on) (from) other stairs and steps, initial encounter; Y93.89 Activity, other specified; Y92.89 Other specified places as the place of occurrence of the external cause; Y99.8 Other external cause status
CPT/HCPCS: 73610; 73630; 99284

== ENCOUNTER → 2021-07-15 | Outpatient (CLI) | payer OTHER ==
[~2021-07-15] MED LIST changes: -BUPR200T PO; +BUPR200T3 PO; -LOSA25TA12 PO; +LOSA25TA4 PO
--- NOTE | 2021-07-15 15:40 | RAD ---
AP and Lateral Views of the Chest 07/15/2021 3:20 PM Indication: Reason: ASTHMA / Spl. Instructions: / History: Comparison: Chest radiograph June 03, 2020 Findings: No pneumothorax or focal infiltrate is seen. Heart size is normal. No pleural effusion is i dentified. Dorsal column stimulator noted, new from comparison study. Postoperative changes to the ce rvical spine noted. No acute osseous changes are seen. IMPRESSION: No radiographic evidence of acute cardiopulmonary process Electronically signed by: Primo Marvin MD (07/15/2021 3:37 PM) [id number]
== END ==
LOC: RAD 15:06
PROVIDERS: ATTEND Internal Medicine Pulmonary Disease
DX: J45.909 Unspecified asthma, uncomplicated (principal); Z98.890 Other specified postprocedural states
CPT/HCPCS: 71046

== ENCOUNTER → 2022-01-26 | Day surgery (SDC) | payer OTHER ==
[~2022-01-26] VITALS: Ht 165.1 cm; Wt 90.0 kg
[~2022-01-26] MED LIST changes: -BUPR200T3 PO; +BUPR200T6 PO; +DILT240C33 PO; +FURO20TA3 PO; +IV RINGERS,LACTATED 1000ML 1,000 ML IV SCH; +IVAB5TAB PO; +LOSA-362 PO; +LOSA-73 PO; -LOSA25TA4 PO; +PROPOFOL 10 MG/ML (20ML) VIAL. IV ONE
[2022-01-26 07:41] VITALS: BP 128/66
[2022-01-26 09:32] VITALS: BP 118/71
--- NOTE | 2022-01-27 11:17 | PATHOLOGY ---
[facility] Accession Number: [id number] . 01 Material submitted: . esophagus - DISTAL ESOPHAGUS BIOPSY. Modifiers: distal . 01 Clinical history: . CRC, GERD . 02 Diagnosis: Esophageal biopsies, distal esophagus: - Reflux changes. (JPM:aditi; 01/27/2022) S 01/27/2022 0846 Local . 02 Comment: Sections of the distal esophageal biopsy reveal multiple segments of hyperplastic squamous esophageal mucosa consistent with reflux esophagitis. There is no evidence of Leonard's change, dysplasia, or malignancy. (JPM:aditi; 01/27/2022) . 02 Electronically signed: . Ramírez Bocanegra MD, Pathologist NPI- [id number] . 01 Gross description: . The specimen is received in formalin, labeled "Lorin Esparza, distal esophagus BX". Received are multiple fragments of pale san tissue measuring 1.3 x 0.5 x 0.1 cm in aggregate dimensions. The specimen is filtered and entirely submitted in cassette A1. ([facility]; 01/26/2022) NRI/NRI 01/26/2022 2130 Local . 02 Pathologist provided ICD-10: K21.9 . 02 CPT . 687568 Specimen Comment: A courtesy copy of this report has been sent to [phone], [phone] Specimen Comment: [id number] Specimen Comment: Report sent to / DR GOODRICH Specimen Comment: A duplicate report has been generated due to demographic updates. Performed at: 01 [facility] [address], [place], [place] [id number] MD Pelon Diaz MD Phone: [phone] Performed at: [facility] [address], [place] [id number] MD Ramírez Bocanegra MD Phone: [phone]
== END | disposition home or self-care (01) ==
LOC: ENDOS 07:09
PROVIDERS: ATTEND Internal Medicine Gastroenterology
DX: Z12.11 Encounter for screening for malignant neoplasm of colon (principal); K64.0 First degree hemorrhoids; K21.00 Gastro-esophageal reflux disease with esophagitis, without bleeding; K63.89 Other specified diseases of intestine; K31.89 Other diseases of stomach and duodenum; I10 Essential (primary) hypertension; J45.909 Unspecified asthma, uncomplicated; M19.90 Unspecified osteoarthritis, unspecified site; F41.9 Anxiety disorder, unspecified; F32.9 Major depressive disorder, single episode, unspecified; Z90.710 Acquired absence of both cervix and uterus; Z98.890 Other specified postprocedural states; Z79.899 Other long term (current) drug therapy
CPT/HCPCS: 43239; 45378; J2704; 88305